=== PATIENT | female | born 1965 | race Caucasian/White ===

== ENCOUNTER → 2016-06-20 | Outpatient (CLI) | payer BC ==
[~2016-06-20] MED LIST: ALPR-411 PO; BUTA1CAP17 PO; CMD5 PO; CYCL10TA6 PO; DOCU-94 PO; ENOX100I SQ; FLV1 PO; LIOT5TAB PO; LORA-741 PO; METH10TA PO; METH1INJ89 INJ; MOME0.1C33 TOP; OMEP40CA PO; ONDA8TAB12 PO; PROM25TA PO; RTL20 PO; SIMV40TA2 PO; WARF-246 PO; [UNRECOGNIZED DRUG - CODE] PO
--- NOTE | 2016-06-20 16:29 | MAMMOGRAPHY REPORT ---
BILATERAL DIGITAL SCREENING MAMMOGRAM TOMOSYNTHESIS WITH CAD: 06/20/2016 TECHNIQUE: Breast tomosynthesis in addition to standard 2D mammography was performed. Current study was also evaluated with a Computer Aided Detection (CAD) system. COMPARISON: Comparison is made to exams dated: 06/20/2015 mammogram, 06/22/2014 mammogram, 04/04/2013 m ammogram, 03/01/2012 mammogram, and 10/12/2014 mammogram - [facility]. BREAST COMPOSITION: The tissue of both breasts is heterogeneously dense, which may obscure small ma sses. FINDINGS: No suspicious masses, calcifications, or areas of architectural distortion are noted in e ither breast. There has been no significant interval change compared to prior exams. Two biopsy mar ker clips are again noted in the left upper outer quadrant. IMPRESSION: ACR BI-RADS CATEGORY 2: BENIGN There is no mammographic evidence of malignancy. A 1 year screening mammogram is recommended. The p atient will receive written notification of the results. Approximately 10% of breast cancers are not detected with mammography. A negative mammographic repor t should not delay biopsy if a clinically suggestive mass is present. Marilia Joseph M.D. ah/:06/20/2016 13:48:12 Assembler Type Bar And Segment: Christen HERZOG([place]ma)(M), [facility] letter sent: Normal 1/2 BI-RADS Code: ACR BI-RADS Category 2: Benign
== END | disposition home or self-care (01) ==
LOC: C.MAMM 10:31
DX: Z12.31 Encounter for screening mammogram for malignant neoplasm of breast (principal)

== ENCOUNTER → 2016-09-02 | Outpatient (CLI) | payer BC | END | disposition home or self-care (01) | LOC: C.LABSPEC 11:25 | DX: R30.0 Dysuria (principal) ==

== ENCOUNTER → 2016-09-24 | Outpatient (CLI) | payer BC ==
[2016-09-24 14:47] LABS: HEMATOCRIT 44.3 % (37-47); MEAN CELL VOLUME 87.7 fL (80-100); MEAN CORPUSCULAR HEMOGLOBIN 30.3 pg (25-34); MEAN CORPUSCULAR HGB CONC 34.5 g/dl (32-36); RED BLOOD COUNT 5.05 M/uL (4.2-5.4); WHITE BLOOD COUNT 8.03 K/uL (4.8-10.8)
[2016-09-24 15:07] LABS: BLOOD UREA NITROGEN 11 mg/dl (7-18); BUN/CREATININE RATIO 17.7 (10-20); CALCIUM 9.1 mg/dl (8.5-10.1); CARBON DIOXIDE 30 mmol/L (21-32); CHLORIDE 106 mmol/L (98-107); CREATININE 0.62 mg/dl (0.60-1.20); GLUCOSE 89 mg/dl (70-99); MEAN PLATELET VOLUME 12.7 fL (7.4-10.4); PLATELET COUNT 120 K/uL (130-400); POTASSIUM 3.9 mmol/L (3.5-5.1); SODIUM 140 mmol/L (136-145)
[2016-09-24 15:08] LABS: BASO % 0.2 %; BASO ABS # 0.02 K/uL (0-0.2); COMPLETE YES; EOS % 1.1 %; IG% 0.1 %; LYMPH % 17.3 %; LYMPH ABS # 1.39 K/uL (1.2-3.4); MONO % 6.4 %; NEUT % 74.9 %; PLT ESTIMATE DECREASED
[2016-09-24 15:10] LABS: ALKALINE PHOSPHATASE 128 U/L (45-117); ALT/SGPT 29 U/L (12-78); AST/SGOT 24 U/L (15-37)
== END | disposition home or self-care (01) ==
LOC: C.LAB 13:14
DX: R19.7 Diarrhea, unspecified (principal); R50.9 Fever, unspecified

== ENCOUNTER → 2017-11-06 | Outpatient (CLI) | payer OTHER ==
[2017-11-06 13:25] LABS: BASO % 1.1 %; BASO ABS # 0.08 K/uL (0-0.2); EOS % 4.3 %; EOS ABS # 0.32 K/uL (0-0.5); HEMATOCRIT 42.7 % (37-47); HEMOGLOBIN 14.1 g/dL (12.0-16.0); IG# 0.01 K/uL (0.00-0.02); LYMPH % 20.9 %; LYMPH ABS # 1.57 K/uL (1.2-3.4); MEAN CORPUSCULAR HEMOGLOBIN 28.7 pg (25-34); MONO % 6.1 %; MONO ABS # 0.46 K/uL (0.11-0.59); NEUT % 67.5 %; NEUT ABS # 5.08 K/uL (1.4-6.5); PLATELET COUNT 150 K/uL (130-400); RED CELL DISTRIBUTION WIDTH CV 14.1 % (11.5-14.5); RED CELL DISTRIBUTION WIDTH SD 44.2 fL (36.4-46.3); WHITE BLOOD COUNT 7.52 K/uL (4.8-10.8)
[2017-11-06 13:49] LABS: CREATININE 0.61 mg/dl (0.60-1.20)
== END | disposition home or self-care (01) ==
LOC: C.LABBC 11:30
PROVIDERS: ATTEND Internal Medicine
DX: Z79.899 Other long term (current) drug therapy (principal); M05.79 Rheumatoid arthritis with rheumatoid factor of multiple sites without organ or systems involvement

== ENCOUNTER → 2017-11-11 | Outpatient (CLI) | payer OTHER ==
[2017-11-11 17:28] LABS: ALBUMIN 3.5 gm/dl (3.4-5.0); TOTAL PROTEIN 7.4 gm/dl (6.4-8.2)
== END | disposition home or self-care (01) ==
LOC: C.LABBC 13:18
PROVIDERS: ATTEND Internal Medicine
DX: M05.79 Rheumatoid arthritis with rheumatoid factor of multiple sites without organ or systems involvement (principal); Z79.899 Other long term (current) drug therapy

== ENCOUNTER 2020-02-04 12:07 | Inpatient (IN) ==
[2020-02-04] MEDS ORDERED: VANCOMYCIN HCL 1,250 MG in SODIUM CHLORIDE 0.9% 500 ML IV ONE (12:37)
[2020-02-04] MEDS ORDERED: VANCOMYCIN CONSULT ACTIVE PRN ×2 (12:37→18:14)
[2020-02-04 12:59] LABS: Hematocrit (blood only) 30.3 % (37-47); Hemoglobin 10.1 g/dL (12.0-16.0); Mean Corpuscular Hemoglobin 28.2 pg (25-34); Mean Corpuscular Hgb Conc 33.3 g/dL (32-36); Mean Corpuscular Volume 84.6 fL (80-100); RDW Coefficient of Variation 12.5 % (11.5-14.5); Red Blood Count 3.58 M/uL (4.2-5.4)
[2020-02-04 13:06] LABS: Eosinophils # (auto) 0.11 K/uL (0-0.5); Eosinophils % (auto) 2.6 %; Lymphocytes # (auto) 0.51 K/uL (1.2-3.4); Lymphocytes % (auto) 12.1 %; Monocytes # (auto) 0.01 K/uL (0.11-0.59); Monocytes % (auto) 0.2 %; Neutrophils # (auto) 3.57 K/uL (1.4-6.5); Neutrophils % (auto) 85.1 %; Platelet Count 80 K/uL (130-400)
[2020-02-04 13:09] LABS: INR 1.6 (0.9-1.1); Partial Thromboplastin Ratio 1.1; Partial Thromboplastin Time 31.9 Seconds (21.0-31.0); Prothrombin Time 16.5 Seconds (9.0-12.0)
[2020-02-04 13:19] LABS: Albumin Level 2.8 gm/dl (3.4-5.0); BUN Creatinine Ratio 27.9 (10-20); Calcium 8.4 mg/dl (8.5-10.1); Creatinine Clr Calc Pharmacy 114.4 ml/min; Est GFR (African American) 124.7; Est GFR (Non-African American) 107.6; Magnesium 1.8 mg/dl (1.8-2.4); Potassium 3.8 mmol/L (3.5-5.1)
[2020-02-04 13:21] LABS: Albumin Globulin Ratio 0.8 (0.9-2); Bilirubin,Total 1.1 mg/dl (0.2-1); Globulin 3.7 gm/dl (2.5-4.0); Total Protein 6.5 gm/dl (6.4-8.2)
--- NOTE | 2020-02-04 13:29 | XRay Report ---
XR chest 1V portable CLINICAL HISTORY: SEPSIS COMPARISON STUDY: 01/19/2020 FINDINGS: The cardiac and mediastinal contours remain stable. There is a right-sided A-Port catheter. There is no acute parenchymal consolidation. There is no failure. There are no pleural effusions. Th ere is a stable 4 cm pleural-based mass within the left upper lung zone laterally.[ IMPRESSION: 1. Stable 4 cm mass within the left upper lung zone laterally 2. No evidence of acute parenchymal consolidation ACT 112: Negative or not required by law. Electronically signed by: Toribio Mercado M.D. 02/04/2020 1:28 PM
[2020-02-04 13:35] LABS: Appearance Urine Clear (Clear); Bacteria Urine Automated Negative (Negative); Bilirubin Urine Negative (Negative); Blood Urine Trace (Negative); Color Urine Dark Yellow; Glucose Urine UA Negative (Negative); Ketones Urine Negative (Negative); Leukocyte Esterase Urine Trace (Negative); Nitrite Urine Negative (Negative); Protein Urine Negative (Negative); RBC Urine Automated 0-4 /hpf (0-4); Urobilinogen Urine Negative (Negative); pH Urine 5.5 (4.5-7.5)
--- NOTE | 2020-02-04 13:38 | Emergency Department Note ---
History of Present Illness General Chief complaint: Fever Stated complaint: FEVER Time Seen by Provider: 02/04/20 12:19 History of Present Illness Provider complaint: Fever Onset (ago): hour(s) 8 Associated symptoms: + fever/chills and + rash; no confusion, no chest pain, no cough, no headaches, no nausea/vomiting, no seizure and no shortness of breath 54-year-old female on chemotherapy with Dr. Martinez for metastatic breast cancer presents emergency department for fever. Patient states for last chemotherapy was done on . Patient states she started having a fever at 4 AM today. T-max 101.7. Took Tylenol at 9:57 AM today. Patient recently had a port placed in her right chest. She also reports redness and rash over her left chest that is tender to touch. She reports no discharge. No loss of taste or smell. No nausea vomiting diarrhea dysuria hematuria or cough. Patient is on Coumadin. Last INR 1.9. Patient states she contacted her oncologist Dr. Martinez who told her to come to the emergency department to see if she had cellulitis. Home Medications Home Medications Medication Instructions Recorded Confirmed Type risojtklzp-wbaizhbywpfpf-wxhhsidu 1 cap PO Q4H PRN 01/13/20 02/04/20 History 50 mg-300 mg-40 mg capsule cyclobenzaprine 10 mg tablet 10 mg PO TID PRN 01/13/20 02/04/20 History diclofenac sodium 1 % topical gel 2 g TOPICAL QID PRN 01/13/20 02/04/20 History liothyronine 5 mcg tablet 10 mcg PO QAM tab 01/13/20 02/04/20 History methadone 10 mg tablet 10 mg PO BID tab 01/13/20 02/04/20 History methylphenidate HCl 10 mg tablet 20 mg PO QAM tab 01/13/20 02/04/20 History ondansetron HCl 8 mg tablet 8 mg PO Q8H PRN 01/13/20 02/04/20 History oxycodone-acetaminophen 5 mg-325 1 tab PO Q4H PRN 01/13/20 02/04/20 History mg tablet simvastatin 40 mg tablet 40 mg PO QPM 01/13/20 02/04/20 History warfarin 5 mg tablet 5 mg PO DAILY tab 01/13/20 02/04/20 History zolpidem 12.5 mg tablet,extended 12.5 mg PO DAILY PRN tab 01/13/20 02/04/20 History release,multiphase alprazolam 0.5 mg PO Q6H PRN 02/04/20 02/04/20 History anastrozole 1 mg PO DAILY 02/04/20 02/04/20 History dexamethasone 20 mg PO UD 02/04/20 02/04/20 History Allergies Allergy/AdvReac Type Severity Reaction Status Date / Time adhesive Allergy Unknown Rash Verified 02/04/20 12:35 povidone Allergy Unknown Blisters Verified 02/04/20 12:35 acetaminophen [From Lortab] Allergy Unknown Verified 02/04/20 12:35 hydrocodone [From Lortab] Allergy Unknown Verified 02/04/20 12:35 iodine Allergy Blisters Verified 02/04/20 12:35 methocarbamol [From Robaxin] Allergy Unknown Verified 02/04/20 12:35 povidone-iodine Allergy Blisters Verified 02/04/20 12:35 [From Betadine] propoxyphene [From Darvon] Allergy Unknown Verified 02/04/20 12:35 soap [From Betadine] Allergy Blisters Verified 02/04/20 12:35 codeine AdvReac Intermediate Severe Verified 02/04/20 12:35 headache, nausea Past Med/Surg History Medical History (Updated 02/04/20 @ 15:36 by Murray Timmons) Antiphospholipid antibody syndrome Factor V Leiden Fibromyalgia History of blood clots hx of small vessel eye blood clots per remote [facility] records, hx antiphospholipid antibody syndrome/lupus anticoagulant/factor V- on coumadin History of Chiari malformation s/p surgery/repair (2014), no acute findings on 01/13/20 brain MRI History of HPV infection Hyperlipidemia Hypothyroidism IBD (inflammatory bowel disease) Jaw pain, non-TMJ Lupus anticoagulant syndrome Lymphedema Metastatic breast cancer recent diagnosis; mets to lungs, lymph nodes Migraines Rheumatoid arthritis Surgical History CSF leak post craniotomy; surgically repaired 2014 History of breast biopsy History of cholecystectomy History of colonoscopy History of craniotomy suboccipital craniectomy, C1 laminectomy, and duraplasty to treat a type 1 Chiari malformation 2015 [place] History of D&C x2 History of excision of mass vulvar History of hysterectomy History of lumpectomy x 6 History of surgery on arm Left Brachial 1993 History of tooth extraction PONV (postoperative nausea and vomiting) Slow to wake up after anesthesia Surgical history of tubal ligation Family History Mother Breast cancer Grandmother Heart disease Breast cancer Other No family history of adverse response to anesthesia Social History Smoking Status: Never smoker packs per day: 1; Years Smoked: 35; Second Hand Exposure: Yes (as a child); Hx Alcohol Use: No Hx Substance Use: No Preferred Language: Belarusian Communication Ability: Effective School Coordinator Required: No Beliefs That Will Affect Care: Temple Temple Beliefs: Shinto marital status: Current Living Situation: Spouse current occupation: Homemaker Feels Safe at Home: Yes Assistive Devices: Glasses Review of Systems A total of 10 systems reviewed and were otherwise negative Physical Exam Vital Signs Vital Signs - 24 hr 02/04/20 12:10 02/04/20 12:52 02/04/20 13:03 Temperature 37.4 C Temperature Source Oral Pulse Rate 113 H 102 H Pulse Rate from SpO2 Sensor 101 H Pulse Rhythm Regular Pulse Strength Normal Respiratory Rate 18 16 Respiratory Effort / Characteristics Non-Labored Blood Pressure 104/65 92/66 L Blood Pressure Mean 78 75 Blood Pressure Position Sitting Pulse Oximetry 97 98 Oxygen Delivery Method Sepsis Recent Fever Within 48 Hours Yes Sepsis New/Unexplained Change in Mental Status No Sepsis Action Taken by Nursing No Action Required 02/04/20 13:13 02/04/20 13:30 02/04/20 14:00 Temperature Temperature Source Pulse Rate 104 H 106 H Pulse Rate from SpO2 Sensor 102 H 106 H Pulse Rhythm Pulse Strength Respiratory Rate 19 24 Respiratory Effort / Characteristics Blood Pressure 111/68 111/67 Blood Pressure Mean 80 78 Blood Pressure Position Pulse Oximetry 97 98 99 Oxygen Delivery Method Room Air Sepsis Recent Fever Within 48 Hours Sepsis New/Unexplained Change in Mental Status Sepsis Action Taken by Nursing Physical Exam GENERAL: She is oriented to person, place, and time. She appears well-developed and well-nourished. She does not appear distressed. HENT: Exam performed. -Head: Normocephalic and atraumatic. -Right Ear: External ear normal. No mastoid tenderness. -Left Ear: External ear normal. No mastoid tenderness. -Mouth/Throat: The oropharynx is clear and moist. No trismus in the jaw. No dental abscesses or uvula swelling. No oropharyngeal exudate or tonsillar abscesses. EYES: Conjunctivae and EOM are normal. Pupils are equal, round, and reactive to light. Right eye exhibits no discharge. Left eye exhibits no discharge. No scleral icterus. NECK: Normal range of motion. Neck supple. No JVD present. No spinous process tenderness present. No carotid bruit present. No rigidity. No tracheal deviation and normal range of motion present. No Brudzinski's sign and no Kernig's sign noted. CV: Tachycardic rate, regular rhythm, normal heart sounds and intact distal pulses. There is no peripheral edema. Palpable radial pulses bue. PULM/CHEST: Effort normal and breath sounds normal. No respiratory distress. No stridor. She has no wheezes. She has no rales. -Chest Wall: Port in place ABD: The abdomen is soft. Bowel sounds are normal. She has no distension. No mass is present. There is no tenderness. There is no rebound, no guarding, no Adam's sign and no tenderness at McBurney's point. Rovsig negative MUSC/SKEL: Normal range of motion. There is no peripheral edema, tenderness or deformity. LYMPH: No cervical adenopathy. NEURO: She is alert and oriented to person, place, and time. She has normal strength. No cranial nerve deficit or sensory deficit. Coordination and gait normal. GCS eye subscore is 4. GCS verbal subscore is 5. GCS motor subscore is 6. Cerebellar tests wnl. Breast: Breast exam conducted with nursing marble setter helper Rochelle at bedside. Left breast is erythematous and tender in the inferior aspect of the breast from approximately 4-8 o'clock. There is some mild tenderness. No nipple discharge. Right breast no erythema or tenderness. No nipple discharge. PSYCH: She has a normal mood and affect. Behavior is normal. Judgment and thought content normal. Course Course 1219: The patient was evaluated in room B2. A complete history and physical exam was performed. Patient was seen in full airborne precautions given her being immunocompromised in the current COVID-19 pandemic. Patient was seen by myself and staff in full airborne precautions including N95's, face shield, gown, and gloves. Cardiac monitoring: An order was placed for continuous cardiac monitoring. The monitor shows a rate of 100 with sinus rhythm 1500: Vital signs stable. Labs within normal limits. Ultrasound does not show any abscess. Patient does appear to have cellulitis. Patient was treated with vancomycin. Discussed with the patient's oncologist Dr. Martinez who also recommended cefepime and to meet the patient to the medicine unit. Discussed with Dr. Juan who agreed to evaluate the patient. Administered Medications Discontinued Medications Vancomycin HCl 1,250 mg/ (Sodium Chloride) 525 mls @ 200 mls/hr IV NOW ONE Stop: 02/04/20 15:14 Last Admin: 02/04/20 13:04 Dose: 200 mls/hr Documented by: [id number] Sodium Chloride (Nss 1000ml) 1,000 mls @ 999 mls/hr IV .Q1H1M ONE Stop: 02/04/20 14:48 Last Infusion: 02/04/20 15:14 Dose: 0 mls/hr Documented by: [id number] Admin: 02/04/20 14:02 Dose: 999 mls/hr Documented by: [id number] Medical Decision Making Laboratory Data Result diagrams: 02/04/20 12:45 02/04/20 12:45 Lab Results 02/04/20 02/04/20 02/04/20 Range/Units 12:45 12:45 12:45 WBC 4.20 L (4.8-10.8) K/uL RBC 3.58 L (4.2-5.4) M/uL Hgb 10.1 L (12.0-16.0) g/dL Hct 30.3 L (37-47) % MCV 84.6 (80-100) fL MCH 28.2 (25-34) pg MCHC 33.3 (32-36) g/dL RDW Std Deviation 39.0 (36.4-46.3) fL RDW Coeff of Millie 12.5 (11.5-14.5) % Plt Count 80 L (130-400) K/uL MPV 11.0 H (7.4-10.4) fL Immature Gran % (Auto) 0.0 % Neut % (Auto) 85.1 % Lymph % (Auto) 12.1 % Lake % (Auto) 0.2 % Eos % (Auto) 2.6 % Baso % (Auto) 0.0 % Neut # (Auto) 3.57 (1.4-6.5) K/uL Lymph # (Auto) 0.51 L (1.2-3.4) K/uL Lake # (Auto) 0.01 L (0.11-0.59) K/uL Eos # (Auto) 0.11 (0-0.5) K/uL Baso # (Auto) 0.00 (0-0.2) K/uL Immature Gran # (Auto) 0.00 (0.00-0.02) K/uL PT 16.5 H (9.0-12.0) Seconds INR 1.6 H (0.9-1.1) APTT 31.9 H (21.0-31.0) Seconds PTT Ratio 1.1 Sodium 137 (136-145) mmol/L Potassium 3.8 (3.5-5.1) mmol/L Chloride 104 (98-107) mmol/L Carbon Dioxide 28 (21-32) mmol/L Anion Gap 5.0 (3-11) BUN 15 (7-18) mg/dl Creatinine 0.52 L (0.6-1.2) mg/dl Est Cr Clr Drug Dosing 114.4 ml/min Est GFR ( Amer) 124.7 Est GFR (Non-Af Amer) 107.6 BUN/Creatinine Ratio 27.9 H (10-20) Glucose 97 (70-99) mg/dl Lactate (0.4-2.0) mmol/L Calcium 8.4 L (8.5-10.1) mg/dl Magnesium 1.8 (1.8-2.4) mg/dl Total Bilirubin 1.1 H (0.2-1) mg/dl AST 42 H (15-37) U/L ALT 71 (12-78) U/L Alkaline Phosphatase 103 (45-117) U/L Total Protein 6.5 (6.4-8.2) gm/dl Albumin 2.8 L (3.4-5.0) gm/dl Globulin 3.7 (2.5-4.0) gm/dl Albumin/Globulin Ratio 0.8 L (0.9-2) Urine Color Urine Appearance (Clear) Urine pH (4.5-7.5) Ur Specific [place] (1.000-1.030) Urine Protein (Negative) Urine Glucose (UA) (Negative) Urine Ketones (Negative) Urine Blood (Negative) Urine Nitrite (Negative) Urine Bilirubin (Negative) Urine Urobilinogen (Negative) Ur Leukocyte Esterase (Negative) Urine WBC (Auto) (0-5) /hpf Urine RBC (Auto) (0-4) /hpf U Hyaline Cast (Auto) (0-5) /lpf U Epithel Cells (Auto) (0-5) /lpf Urine Bacteria (Auto) (Negative) COVID-19 Eval Order COVID-19 PCR (Negative) 02/04/20 02/04/20 02/04/20 Range/Units 12:45 12:45 12:45 WBC (4.8-10.8) K/uL RBC (4.2-5.4) M/uL Hgb (12.0-16.0) g/dL Hct (37-47) % MCV (80-100) fL MCH (25-34) pg MCHC (32-36) g/dL RDW Std Deviation (36.4-46.3) fL RDW Coeff of Millie (11.5-14.5) % Plt Count (130-400) K/uL MPV (7.4-10.4) fL Immature Gran % (Auto) % Neut % (Auto) % Lymph % (Auto) % Lake % (Auto) % Eos % (Auto) % Baso % (Auto) % Neut # (Auto) (1.4-6.5) K/uL Lymph # (Auto) (1.2-3.4) K/uL Lake # (Auto) (0.11-0.59) K/uL Eos # (Auto) (0-0.5) K/uL Baso # (Auto) (0-0.2) K/uL Immature Gran # (Auto) (0.00-0.02) K/uL PT (9.0-12.0) Seconds INR (0.9-1.1) APTT (21.0-31.0) Seconds PTT Ratio Sodium (136-145) mmol/L Potassium (3.5-5.1) mmol/L Chloride (98-107) mmol/L Carbon Dioxide (21-32) mmol/L Anion Gap (3-11) BUN (7-18) mg/dl Creatinine (0.6-1.2) mg/dl Est Cr Clr Drug Dosing ml/min Est GFR ( Amer) Est GFR (Non-Af Amer) BUN/Creatinine Ratio (10-20) Glucose (70-99) mg/dl Lactate 0.7 (0.4-2.0) mmol/L Calcium (8.5-10.1) mg/dl Magnesium (1.8-2.4) mg/dl Total Bilirubin (0.2-1) mg/dl AST (15-37) U/L ALT (12-78) U/L Alkaline Phosphatase (45-117) U/L Total Protein (6.4-8.2) gm/dl Albumin (3.4-5.0) gm/dl Globulin (2.5-4.0) gm/dl Albumin/Globulin Ratio (0.9-2) Urine Color Urine Appearance (Clear) Urine pH (4.5-7.5) Ur Specific [place] (1.000-1.030) Urine Protein (Negative) Urine Glucose (UA) (Negative) Urine Ketones (Negative) Urine Blood (Negative) Urine Nitrite (Negative) Urine Bilirubin (Negative) Urine Urobilinogen (Negative) Ur Leukocyte Esterase (Negative) Urine WBC (Auto) (0-5) /hpf Urine RBC (Auto) (0-4) /hpf U Hyaline Cast (Auto) (0-5) /lpf U Epithel Cells (Auto) (0-5) /lpf Urine Bacteria (Auto) (Negative) COVID-19 Eval Order Covid19 Done at [facility] COVID-19 PCR NEGATIVE (Negative) 02/04/20 Range/Units 13:10 WBC (4.8-10.8) K/uL RBC (4.2-5.4) M/uL Hgb (12.0-16.0) g/dL Hct (37-47) % MCV (80-100) fL MCH (25-34) pg MCHC (32-36) g/dL RDW Std Deviation (36.4-46.3) fL RDW Coeff of Millie (11.5-14.5) % Plt Count (130-400) K/uL MPV (7.4-10.4) fL Immature Gran % (Auto) % Neut % (Auto) % Lymph % (Auto) % Lake % (Auto) % Eos % (Auto) % Baso % (Auto) % Neut # (Auto) (1.4-6.5) K/uL Lymph # (Auto) (1.2-3.4) K/uL Lake # (Auto) (0.11-0.59) K/uL Eos # (Auto) (0-0.5) K/uL Baso # (Auto) (0-0.2) K/uL Immature Gran # (Auto) (0.00-0.02) K/uL PT (9.0-12.0) Seconds INR (0.9-1.1) APTT (21.0-31.0) Seconds PTT Ratio Sodium (136-145) mmol/L Potassium (3.5-5.1) mmol/L Chloride (98-107) mmol/L Carbon Dioxide (21-32) mmol/L Anion Gap (3-11) BUN (7-18) mg/dl Creatinine (0.6-1.2) mg/dl Est Cr Clr Drug Dosing ml/min Est GFR ( Amer) Est GFR (Non-Af Amer) BUN/Creatinine Ratio (10-20) Glucose (70-99) mg/dl Lactate (0.4-2.0) mmol/L Calcium (8.5-10.1) mg/dl Magnesium (1.8-2.4) mg/dl Total Bilirubin (0.2-1) mg/dl AST (15-37) U/L ALT (12-78) U/L Alkaline Phosphatase (45-117) U/L Total Protein (6.4-8.2) gm/dl Albumin (3.4-5.0) gm/dl Globulin (2.5-4.0) gm/dl Albumin/Globulin Ratio (0.9-2) Urine Color Dark Yellow Urine Appearance Clear (Clear) Urine pH 5.5 (4.5-7.5) Ur Specific [place] 1.020 (1.000-1.030) Urine Protein Negative (Negative) Urine Glucose (UA) Negative (Negative) Urine Ketones Negative (Negative) Urine Blood Trace H (Negative) Urine Nitrite Negative (Negative) Urine Bilirubin Negative (Negative) Urine Urobilinogen Negative (Negative) Ur Leukocyte Esterase Trace H (Negative) Urine WBC (Auto) 1-5 (0-5) /hpf Urine RBC (Auto) 0-4 (0-4) /hpf U Hyaline Cast (Auto) 1-5 (0-5) /lpf U Epithel Cells (Auto) 10-20 H (0-5) /lpf Urine Bacteria (Auto) Negative (Negative) COVID-19 Eval Order COVID-19 PCR (Negative) Imaging Data Radiologist's Impression: US breast LT limited CLINICAL HISTORY: Left breast redness and dimpling. History of inflammatory breast carcinoma. Evaluate for abscess. COMPARISON STUDY: MRI dated 01/10/2020 FINDINGS: Ultrasonographic evaluation the left breast reveals no fluid collections suspicious for abscess. IMPRESSION: No abscess identified. ACT 112: Negative or not required by law. Electronically signed by: Toribio Mercado M.D. 02/04/2020 2:47 PM Dictated: 02/04/20 1445 Transcribed: 02/04/201444 XR chest 1V portable CLINICAL HISTORY: SEPSIS COMPARISON STUDY: 01/19/2020 FINDINGS: The cardiac and mediastinal contours remain stable. There is a right- sided A-Port catheter. There is no acute parenchymal consolidation. There is no failure. There are no pleural effusions. There is a stable 4 cm pleural-based mass within the left upper lung zone laterally.[ IMPRESSION: 1. Stable 4 cm mass within the left upper lung zone laterally 2. No evidence of acute parenchymal consolidation ACT 112: Negative or not required by law. Electronically signed by: Toribio Mercado M.D. 02/04/2020 1:28 PM Dictated: 02/04/20 1326 Transcribed: 02/04/20 1326 ECG Data Indication: + other (Sepsis) Rate (beats per minute): 102 Rhythm: + sinus tachycardia ECG Intervals/blocks: + Normal QRS, + Normal DC and + Normal QT-c ECG ST segments: + Normal ST segments MDM Narrative 1219: The patient was evaluated in room B2. A complete history and physical exam was performed. Patient was seen in full airborne precautions given her being immunocompromised in the current COVID-19 pandemic. Patient was seen by myself and staff in full airborne precautions including N95's, face shield, gown, and gloves. Cardiac monitoring: An order was placed for continuous cardiac monitoring. The monitor shows a rate of 100 with sinus rhythm 1500: Vital signs stable. Labs within normal limits. Ultrasound does not show any abscess. Patient does appear to have cellulitis. Patient was treated with vancomycin. Discussed with the patient's oncologist Dr. aMrtinez who also recommended cefepime and to meet the patient to the medicine unit. Discussed with Dr. Juan who agreed to evaluate the patient. Impression & Plan Cellulitis, Metastatic breast cancer Discharge Plan Visit Data Chief Complaint: Fever Stated Complaint: FEVER ED Provider: Murray Timmons Discharge Problem: Cellulitis, Metastatic breast cancer Patient Disposition: Being Evaluated by Hospitalist Forms Stand Alone Forms: [facility] Prescriptions Prescriptions: No Action cyclobenzaprine 10 mg tablet 10 mg PO TID PRN (Reason: Muscle Spasm) RF: 0 [id number]-nxjkgtgeebzld-vqsi [Fioricet] 50-300-40 mg capsule 1 cap PO Q4H PRN (Reason: Migraine Headache) RF: 0 liothyronine [Cytomel] 5 mcg tablet 10 mcg PO QAM RF: 0 simvastatin [Zocor] 40 mg tablet 40 mg PO QPM RF: 0 oxycodone-acetaminophen [Percocet] 5-325 mg tablet 1 tab PO Q4H PRN (Reason: Pain) RF: 0 methadone [Dolophine] 10 mg tablet 10 mg PO BID RF: 0 zolpidem [Ambien CR] 12.5 mg tablet,ext release multiphase 12.5 mg PO DAILY PRN (Reason: insomnia ) RF: 0 warfarin 5 mg tablet 5 mg PO DAILY RF: 0 ondansetron HCl 8 mg tablet 8 mg PO Q8H PRN (Reason: Nausea And Vomiting) RF: 0 methylphenidate HCl [Ritalin] 10 mg tablet 20 mg PO QAM RF: 0 diclofenac sodium 1 % gel 2 g topical QID PRN (Reason: Pain) RF: 0 anastrozole 1 mg tablet 1 mg PO DAILY RF: 0 alprazolam 0.5 mg tablet 0.5 mg PO Q6H PRN (Reason: Anxiety) RF: 0 dexamethasone 4 mg tablet 20 mg PO UD RF: 0 Referrals Referrals: Akbar Francisco Jr, DO [Primary Care Provider] - Discharge Problem: Cellulitis Qualifiers: Site of cellulitis: trunk Site of cellulitis of trunk: chest wall Qualified Code(s): L03.313 - Cellulitis of chest wall
[2020-02-04] MEDS ORDERED: SODIUM CHLORIDE 0.9% 1000ML 1,000 ML IV ONE (13:48)
--- NOTE | 2020-02-04 14:49 | Ultrasound Report ---
US breast LT limited CLINICAL HISTORY: Left breast redness and dimpling. History of inflammatory breast carcinoma. Evaluat e for abscess. COMPARISON STUDY: MRI dated 01/10/2020 FINDINGS: Ultrasonographic evaluation the left breast reveals no fluid collections suspicious for abs cess. IMPRESSION: No abscess identified. ACT 112: Negative or not required by law. Electronically signed by: Toribio Mercado M.D. 02/04/2020 2:47 PM
[2020-02-04] MEDS ORDERED: CEFEPIME 2,000 MG/20 ML VIAL IV STA (14:57)
--- NOTE | 2020-02-04 15:40 | History & Physical Report ---
Date of Service February 04, 2020 Assessment & Plan (1) Cellulitis: Admit to medical surgical unit Non purulent cellulitis qSOFA negative will add on ESR and CRP to assist with tailoring ABX and calculate LRINEC score Vancomycin and Clindamycin for now Blood cultures pending (one set from peripheral, one set from medi-port) already done trend erythema, skin marked and outlined in the EMD - Also considering a chemotherapy reaction as she presented with 3 discrete patches of erythema rather than one confluent area. But patient and understand and are in agreement with treating for infection first, then consider chemo reaction. (2) Triple negative malignant neoplasm of breast: Ordinally diagnosed in November 2019. Current therapy as above (Taxol and Gemcitabine) first cycle day 10 on admit day. Current therapy per HPI Hematology consult placed Chemotherapy and management per Hematology/Oncology Supportive therapy for nausea and pain given (3) Metastatic breast cancer: see above (4) Factor V deficiency: - Continue with Coumadin 5mg daily, therapeutic INR 1.6 for upper extremity VTE following lymph node biposy. (5) Fibromyalgia: Continue home pain regimine with Methadone and OXY. Add in adjuvant therapy as needed. Tylenol PRN pain and fever as well. (6) Chronic pain disorder: as above (7) Rheumatoid arthritis: Biologics stopped prior ther induction of chemotherapy. Continue sup portive care as above. (8) Hyperlipemia: Simvastatin 40 mg qhs. Continue therapy. (9) Hypothyroidism: No acute needs, continue therapy. Admission and Anticipated Discharge Date Anticipated date of discharge: 02/07/20 History of Present Illness Primary Care Provider: Akbar Francisco Jr, DO 54 YOF recently diagnosed with metastatic triple negative breast cancer ([facility]) in November. Patient has since undergone lymph node biopsy on 01/02/2020, and placement of RSCL medi-port on 01/19/2020. Patient is currently undergoing chemotherapy with taxol and gemcitabine (currently on day 10) last treatment was on 02/02/20. Patient noticed rash on breast within past 48 hours. The rash started at mammory fold and spread to her underarm. Since coming to the emergency room, the erythema has spread down to left flank and down left lateral hip. The erythema has a break at her panty line. There is no drainage, there is no nidus of entry noted. Patient denies any scratches or other injuries at site or at breast. The site is associated with warmth, fevers, nausea and no vomiting. Patient has take tylenol at home for fever with minimal relief. Of note patient has been having fevers and body-aches/bone pain since starting her chemotherapy on 01/27/2020. Allergies Allergy/AdvReac Type Severity Reaction Status Date / Time adhesive Allergy Unknown Rash Verified 02/04/20 12:35 povidone Allergy Unknown Blisters Verified 02/04/20 12:35 acetaminophen [From Lortab] Allergy Unknown Verified 02/04/20 12:35 hydrocodone [From Lortab] Allergy Unknown Verified 02/04/20 12:35 iodine Allergy Blisters Verified 02/04/20 12:35 methocarbamol [From Robaxin] Allergy Unknown Verified 02/04/20 12:35 povidone-iodine Allergy Blisters Verified 02/04/20 12:35 [From Betadine] propoxyphene [From Darvon] Allergy Unknown Verified 02/04/20 12:35 soap [From Betadine] Allergy Blisters Verified 02/04/20 12:35 codeine AdvReac Intermediate Severe Verified 02/04/20 12:35 headache, nausea Home Medications Home Medications Medication Instructions Recorded Confirmed Type womdcdxegb-[id number]-ukkzoxny 1 cap PO Q4H PRN 01/13/20 02/04/20 History 50 mg-300 mg-40 mg capsule cyclobenzaprine 10 mg tablet 10 mg PO TID PRN 01/13/20 02/04/20 History diclofenac sodium 1 % topical gel 2 g TOPICAL QID PRN 01/13/20 02/04/20 History liothyronine 5 mcg tablet 10 mcg PO QAM tab 01/13/20 02/04/20 History methadone 10 mg tablet 10 mg PO BID tab 01/13/20 02/04/20 History methylphenidate HCl 10 mg tablet 20 mg PO QAM tab 01/13/20 02/04/20 History ondansetron HCl 8 mg tablet 8 mg PO Q8H PRN 01/13/20 02/04/20 History oxycodone-acetaminophen 5 mg-325 1 tab PO Q4H PRN 01/13/20 02/04/20 History mg tablet simvastatin 40 mg tablet 40 mg PO QPM 01/13/20 02/04/20 History warfarin 5 mg tablet 5 mg PO DAILY tab 01/13/20 02/04/20 History zolpidem 12.5 mg tablet,extended 12.5 mg PO DAILY PRN tab 01/13/20 02/04/20 History release,multiphase alprazolam 0.5 mg PO Q6H PRN 02/04/20 02/04/20 History anastrozole 1 mg PO DAILY 02/04/20 02/04/20 History dexamethasone 20 mg PO UD 02/04/20 02/04/20 History Past Med/Surg History Medical History (Updated 02/04/20 @ 15:36 by Murray Timmons) Antiphospholipid antibody syndrome Factor V Leiden Fibromyalgia History of blood clots hx of small vessel eye blood clots per remote [facility] records, hx antiphospholipid antibody syndrome/lupus anticoagulant/factor V- on coumadin History of Chiari malformation s/p surgery/repair (2014), no acute findings on 01/13/20 brain MRI History of HPV infection Hyperlipidemia Hypothyroidism IBD (inflammatory bowel disease) Jaw pain, non-TMJ Lupus anticoagulant syndrome Lymphedema Metastatic breast cancer recent diagnosis; mets to lungs, lymph nodes Migraines Rheumatoid arthritis Surgical History CSF leak post craniotomy; surgically repaired 2014 History of breast biopsy History of cholecystectomy History of colonoscopy History of craniotomy suboccipital craniectomy, C1 laminectomy, and duraplasty to treat a type 1 Chiari malformation 2014 [place] History of D&C x2 History of excision of mass vulvar History of hysterectomy History of lumpectomy x 6 History of surgery on arm Left Brachial 1992 History of tooth extraction PONV (postoperative nausea and vomiting) Slow to wake up after anesthesia Surgical history of tubal ligation Family History Mother Breast cancer Grandmother Heart disease Breast cancer Other No family history of adverse response to anesthesia Social History Smoking Status: Former smoker packs per day: 1; Years Smoked: 35; Second Hand Exposure: No; Do You Dip or Chew Tobacco: No; Tobacco Cessation Education Requested by Patient: No Hx Alcohol Use: No Hx Substance Use: No Preferred Language: Gabonese Communication Ability: Effective [employer] Instructor Required: No Beliefs That Will Affect Care: None marital status: Current Living Situation: Family current occupation: Homemaker Feels Safe at Home: Yes Assistive Devices: Glasses Review of Systems Review of Systems: Constitutional: +fever, sweats or chills Eyes: No diplopia, no worsening or blurred vision ENT: +taste abnormality, normal hearing, no trouble swallowing Respiratory: +orthopnea (secondary to pain) No cough, sputum, dyspnea at rest or on exertion Cardiovascular: No chest pain, tightness or palpitations Abdomen: +diarrhea, No pain, nausea, vomiting, or constipation Musculoskeletal: + chronic joint pain, No calf pain, swelling Neurologic: No weakness, numbness/tingling, or balance problems Psychiatric: No anxiety or depression Skin: + rash, no itch Physical Exam Physical Exam: General: awake, alert, no apparent distress Head: Normocephalic, atraumatic ENT: PERRL, EOMI, no pharyngeal exudate, mucous membranes moist Chest: Clear to auscultation, on room air, no adventitious breath sounds Cardiac: Regular rate and rhythm, no murmur, no JVD, normal peripheral pulses, good capillary refill Abdominal: NABS x 4 quadrants, soft, nondistended, nontender to palpation, no rebound or guarding Extremities: Normal inspection, no peripheral edema or erythema, calfs nontender to palpation Psych: Normal mood and affect Neuro: AAO x 3, strength intact bilaterally and rated 5/5, no motor deficits, speech is clear, no peripheral sensory deficits Skin: Erythema as per HPI, no drainage, no abscess. Mediport site intact with no erythema or drainage. QSOFA: 0 Results & Data Results & Data ([facility]) Vital Signs (Past 12 Hours) Vital Signs Temp Pulse Resp BP Pulse Ox 02/04/20 14:00 106 H 24 111/67 99 02/04/20 13:30 104 H 19 111/68 98 02/04/20 13:13 97 02/04/20 13:03 102 H 16 92/66 L 98 02/04/20 12:10 37.4 C 113 H 18 104/65 97 Diagnostic Findings US breast LT limited CLINICAL HISTORY: Left breast redness and dimpling. History of inflammatory breast carcinoma. Evaluate for abscess. COMPARISON STUDY: MRI dated 01/10/2020 FINDINGS: Ultrasonographic evaluation the left breast reveals no fluid collections suspicious for abscess. IMPRESSION: No abscess identified. XR chest 1V portable CLINICAL HISTORY: SEPSIS COMPARISON STUDY: 01/19/2020 FINDINGS: The cardiac and mediastinal contours remain stable. There is a right- sided A-Port catheter. There is no acute parenchymal consolidation. There is no failure. There are no pleural effusions. There is a stable 4 cm pleural-based mass within the left upper lung zone laterally. IMPRESSION: 1. Stable 4 cm mass within the left upper lung zone laterally 2. No evidence of acute parenchymal consolidation Code Status & VTE Plan Code Status Full CODE: Personally discussed with the patient at the bedside. VTE Prophylaxis Plan VTE Prophylaxis will be ordered: Yes Supervising Physician Co-Signing Physician Notes I supervised Blank Olvera PA-C on this patient's care. I examined the patient today independently of her. I discussed the plan of care with her with the plan being as written in her note except for any following changes/exceptions: None. 54yo F w/ hx of breast cancer getting treatment with Dr. Martinez. Presents with rapidly progressing erythematous areas on her left flank. First concern is certainly for cellulitis, though it is curious that the patches are 3 discrete patches rather than one confluent area. Could also be a chemotherapy reaction. Discussed this possibility with patient and , and that we need to treat for infection first as this can be devastating if left untreated for hours/days. They are in agreement. If cultures are negative and rash shows no improvement with abx, could consider reaction. PG Care Time/CCT Total # of Minutes Spent Total Time Spent with Patient: Total time spent is greater than 50% in coordination of care (as documented) at patient's floor/unit and/or counseling patient: Coding Level of Care Code 54772 Initial Inpt Care Lvl 3 Diagnoses Cellulitis L03.313 Site of cellulitis: trunk Site of cellulitis of trunk: chest wall Triple negative malignant neoplasm of breast C50.919 Metastatic breast cancer C50.919 Factor V deficiency D68.2 Fibromyalgia M79.7 Chronic pain disorder G89.4 Rheumatoid arthritis M06.9 Hyperlipemia E78.5 Hypothyroidism E03.9 (1) Cellulitis Site of cellulitis: trunk Site of cellulitis of trunk: chest wall Qualified Code(s): L03.313 - Cellulitis of chest wall
[2020-02-04] MEDS ORDERED: ACETAMINOPHEN 1000 MG/100 ML IV IV STA (16:20)
[2020-02-04] MEDS: CLINDAMYCIN 600 MG in DEXTROSE 5% 50 ML IV SCH (16:47)
[2020-02-04] MEDS ORDERED: PROCHLORPERAZINE 10 MG in SYRINGE 8 ML IV PRN (18:14)
[2020-02-04] MEDS ORDERED: DICLOFENAC SOD 1% GEL 100 GM TUBE EXT PRN (18:14)
[2020-02-04] MEDS ORDERED: VANCOMYCIN HCL 1,000 MG/270 ML BAG IV STA (18:14)
[2020-02-04] MEDS ORDERED: POLYETHYLENE (MIRALAX) 17 GM PACK PO PRN (18:14)
[2020-02-04] MEDS ORDERED: CYCLOBENZAPRINE HCL 10 MG TAB PO PRN (19:06)
[2020-02-04] MEDS ORDERED: ZOLPIDEM TARTRATE 10 MG TAB PO PRN (19:11)
--- NOTE | 2020-02-04 19:35 | Pharmacy Report ---
Pharmacy Abx Dose Short Note - Date of Service February 04, 2020 - Assessment & Plan Assessment 54 year old F ordered empiric vancomycin for cellulitis: * Recently diagnosed with metastatic triple negative breast cancer in November s/p lymph node biopsy on 01/02/2020 and placement of RSCL medi-port on 01/19/2020. * Patient is currently undergoing chemotherapy with taxol and gemcitabine * Also ordered clindamycin IV Plan Vancomycin * Loading dose: 1250 mg IV (20 mg/kg) * Maintenance dose: 1000 mg (16 mg/kg) IV q8h * Ordered EMPIRIC (automatic 48 hour stop) * Goal trough level: ~15 mcg/mL Pharmacy will continue to follow and will adjust dose/frequency as necessary. Thank you.
[2020-02-04] MEDS: WARFARIN SOD 5 MG TAB PO SCH (20:58)
[2020-02-04] MEDS: METHADONE HCL 10 MG TAB PO SCH (20:58)
[2020-02-04] MEDS: ALPRAZolam 0.5 MG TABLET PO PRN (20:58)
[2020-02-04] MEDS: ACETAMINOPHEN 500 MG TAB PO PRN (20:58)
[2020-02-04] MEDS: VANCOMYCIN HCL 1,000 MG in SODIUM CHLORIDE 0.9% 250 ML IV SCH (20:59)
[2020-02-04] MEDS: SIMVASTATIN 40 MG TAB PO SCH (20:59)
[2020-02-05] MEDS: CLINDAMYCIN 600 MG in DEXTROSE 5% 50 ML IV SCH ×3 (00:05→16:35)
[2020-02-05] MEDS: oxyCODONE HCL IR 5 MG TAB (IMMEDIATE RELEASE) PO PRN ×2 (05:08→18:58)
[2020-02-05] MEDS: ACETAMINOPHEN 500 MG TAB PO PRN ×2 (05:08→15:56)
[2020-02-05] MEDS: VANCOMYCIN HCL 1,000 MG in SODIUM CHLORIDE 0.9% 250 ML IV SCH ×3 (05:08→21:22)
[2020-02-05 06:13] LABS: Hematocrit (blood only) 26.5 % (37-47); Hemoglobin 8.8 g/dL (12.0-16.0); Mean Corpuscular Hemoglobin 28.4 pg (25-34); Mean Corpuscular Hgb Conc 33.2 g/dL (32-36); Mean Corpuscular Volume 85.5 fL (80-100); RDW Coefficient of Variation 12.7 % (11.5-14.5); RDW Standard Deviation 39.3 fL (36.4-46.3); White Blood Count 3.23 K/uL (4.8-10.8)
[2020-02-05] MEDS: BUTALBITAL/ACETAMIN/CAFFEINE TAB PO PRN ×2 (06:24→14:19)
[2020-02-05] MEDS: LIOTHYRONINE SODIUM 5 MCG TAB PO SCH (06:25)
[2020-02-05 06:32] LABS: Mean Platelet Volume 10.9 fL (7.4-10.4); Platelet Count 90 K/uL (130-400)
[2020-02-05 06:35] LABS: INR 1.8 (0.9-1.1); Prothrombin Time 18.2 Seconds (9.0-12.0)
[2020-02-05 06:48] LABS: Albumin Level 2.3 gm/dl (3.4-5.0); BUN Creatinine Ratio 24.5 (10-20); Calcium 7.9 mg/dl (8.5-10.1); Creatinine Clr Calc Pharmacy 101.9 ml/min; Est GFR (African American) 123.1; Est GFR (Non-African American) 106.2; Potassium 3.6 mmol/L (3.5-5.1)
[2020-02-05 06:51] LABS: Albumin Globulin Ratio 0.7 (0.9-2); Bilirubin,Total 1.4 mg/dl (0.2-1); Globulin 3.3 gm/dl (2.5-4.0); Total Protein 5.6 gm/dl (6.4-8.2)
[2020-02-05] MEDS ORDERED: SODIUM CHLORIDE 0.9% 1000ML 500 ML IV ONE (07:36)
--- NOTE | 2020-02-05 08:38 | Hospitalist Progress Note ---
Date of Service February 05, 2020 Assessment & Plan (1) Cellulitis: Admit to med surg - Non purulent cellulitis vs chemotherapy reaction from gemcitabine? she presented with 3 distinct patches of erythema rather than one confluent area. But patient and understand and are in agreement with treating for infection first, then consider chemo reaction. Improved significantly with antibiotics so likely atypical cellulitis. - qSOFA negative - ESR 54 and CRP 9.68- mild/mod elevation, continue current abx therapy - Vancomycin and Clindamycin IV - Blood cultures pending (one set from peripheral, one set from medi-port) - follow - trend erythema, skin marked - improving (2) Triple negative malignant neoplasm of breast: - Originally diagnosed in November 2019. Current therapy as above (Taxol and Gemcitabine) first cycle day 10 on 02/04/20. - Onc consulted - appreciate recs - next chemo may be delayed due to abx therapy- defer to onc - Chemotherapy and management per Hematology/Oncology - Supportive therapy for nausea and pain given (3) Metastatic breast cancer: -Mets to left lung, hx of left lymph node resection many years ago and previous breast mass which was surgically removed, now with recurrence. -see above (4) Factor V deficiency: - Continue with Coumadin 5mg daily, therapeutic INR 1.8 for upper extremity VTE following lymph node biopsy. -Goal 1.6-2.1 per patient. (5) Fibromyalgia: - Continue home pain regimen with Methadone and OXY. Add in adjuvant therapy as needed. Tylenol PRN pain and fever as well. (6) Chronic pain disorder: - as above - Consider palliative care consult for goals of care, pain management (7) Rheumatoid arthritis: - Biologics stopped prior to induction of chemotherapy. Continue supportive care as above. (8) Hyperlipemia: - Simvastatin 40 mg qhs. Continue therapy. (9) Hypothyroidism: - Cont levothyroxine DVT ppx: -coumadin CODE: Full Dispo: Likely discharge within 24 hours Admission and Anticipated Discharge Date Admission Date: February 04, 2020 Subjective The patient was seen and examined this morning. Pt states doing much better today. The redness over the left breast, flank, and hip region is improved. She denies any fever, chills or sweats overnight. Has been eating and drinking well. Pt is ambulating about the rooom without difficulty. Her hair is really beginning to fall out, and she had planned on today being the day she shaved her head since stating chemotherapy, but is not sure she wants to do this yet, she just "want to be in charge of something". Pt notes mother was BRCA+, but sisters are negative. Pt with hx of multiple left sided lymph node resection 15 years ago from previous breast mass which was removed. is with her at bedside. Review of Systems Review of Systems: Constitutional: No fever, sweats or chills Eyes: No diplopia, no worsening or blurred vision ENT: normal hearing, no trouble swallowing Respiratory: No cough, sputum, dyspnea at rest or on exertion Cardiovascular: No chest pain, tightness or palpitations Breast: left breast with improved redness and less swelling Abdomen: No pain, nausea, vomiting, diarrhea or constipation Musculoskeletal: No joint pain, calf pain, swelling Neurologic: No weakness, numbness/tingling, or balance problems Psychiatric: No anxiety or depression Skin: rash is improving, no itch, nonpainful Physical Exam Physical Exam: General: awake, alert, no apparent distress Head: Normocephalic, atraumatic ENT: PERRL, EOMI, no pharyngeal exudate, mucous membranes moist Chest: Clear to auscultation, on room air, no adventitious breath sounds Cardiac: Regular rate and rhythm, no murmur, no JVD, normal peripheral pulses, good capillary refill Breast: Left breast erythema and edema improved, peau d'orange appearance on underside, improved erythema on mammary fold. Skin outlined, no erythema beyond the border. Abdominal: NABS x 4 quadrants, soft, nondistended, nontender to palpation, no rebound or guarding Extremities: Normal inspection, no peripheral edema or erythema, calfs nontender to palpation Psych: Normal mood and affect Neuro: AAO x 3, strength intact bilaterally and rated 5/5, no motor deficits, speech is clear, no peripheral sensory deficits Skin: Erythema outlined with skin marker on admission, 3 distinct patches over left flank, left hip all improved. Breast as above. Mediport site accessed, intact with no erythema or drainage. Results & Data Results & Data ([facility]) Vital Signs (Past 12 Hours) Vital Signs Temp Pulse Resp BP Pulse Ox 02/05/20 07:38 37 C 85 16 96/59 L 97 02/05/20 00:03 89/51 L 02/04/20 23:50 37.3 C 105 H 18 79/49 L 94 PG Care Time/CCT Total # of Minutes Spent Total Time Spent with Patient: Total time spent is greater than 50% in coordination of care (as documented) at patient's floor/unit and/or counseling patient: Coding Level of Care Code 44915 Subseq Hosp Care Lvl 3 Diagnoses Cellulitis L03.313 Site of cellulitis: trunk Site of cellulitis of trunk: chest wall Triple negative malignant neoplasm of breast C50.919 Metastatic breast cancer C50.919 Factor V deficiency D68.2 Fibromyalgia M79.7 Chronic pain disorder G89.4 Rheumatoid arthritis M06.9 Hyperlipemia E78.5 Hypothyroidism E03.9 (1) Cellulitis Site of cellulitis: trunk Site of cellulitis of trunk: chest wall Qualified Code(s): L03.313 - Cellulitis of chest wall
[2020-02-05] MEDS: bisacodyL 5 MG TABEC PO SCH (08:52)
[2020-02-05] MEDS: ANASTROZOLE 1 MG TAB PO SCH ×3 (08:52→09:24)
[2020-02-05] MEDS: METHADONE HCL 10 MG TAB PO SCH ×2 (08:52→21:22)
[2020-02-05] MEDS: PANTOprazole 40 MG TAB PO SCH (09:25)
--- NOTE | 2020-02-05 12:26 | Electrocardiogram Report ---
Test Reason : Blood Pressure : / mmHG Vent. Rate : 102 BPM Atrial Rate : 102 BPM P-R Int : 128 ms QRS Dur : 082 ms QT Int : 348 ms P-R-T Axes : 056 070 028 degrees QTc Int : 453 ms Sinus tachycardia Normal ECG When compared with ECG of 19-JAN-2020 05:47, Premature atrial complexes are no longer Present Confirmed by Den Coleman ([id number]) on 02/05/2020 12:26:22 PM Referred By: Vito Vee Confirmed By:Den Coleman
[2020-02-05] MEDS: LACTOBACILLUS ACIDOPHILUS 1 GM PACK PO SCH ×2 (12:41→15:57)
[2020-02-05] MEDS: WARFARIN SOD 5 MG TAB PO SCH (15:56)
[2020-02-05] MEDS ORDERED: HEPARIN 100 UNIT/ML 5ML FLUSH ONE (17:18)
--- NOTE | 2020-02-05 18:12 | Consultation Report ---
DATE OF CONSULTATION: 02/05/2020 MEDICAL ONCOLOGY CONSULTATION REASON FOR CONSULTATION: A 54-year-old female with metastatic breast cancer, admitted for suspected cellulitis. HISTORY OF PRESENT ILLNESS: Luly is a very pleasant 54-year-old patient with metastatic triple negative breast cancer diagnosed in November of this year. She recently was started on combination gemcitabine and paclitaxel. After her first course of chemotherapy, not surprisingly developed low-grade fever, which I believe was attributable to gemcitabine effect. She then received day #8 of the cycle 1 on 02/02/2020. Over the past 48 hours or so, started to notice a rash involving the mammary fold of her left breast extending to her axillary region. She also has a couple of erythematous plaques that are just below the area extending down into the thigh. I was contacted by her yesterday morning when he reported low-grade fever and advised him to treat her fever and call me back if fever increases or symptoms are worse. He subsequently did call around noon, thus instructed him to go to the Emergency Room. She was given both vancomycin and cefepime and admitted to the hospitalist service. PAST MEDICAL HISTORY: Significant for metastatic triple negative breast cancer, antiphospholipid syndrome, cholelithiasis, fibromyalgia, lupus anticoagulant positive. PAST SURGICAL HISTORY: Includes axillary cyst resection, cholecystectomy, bilateral tubal ligation, breast biopsy, suboccipital craniotomy, lumpectomy and hysterectomy. CURRENT MEDICATIONS: Include dexamethasone 20 mg p.o. daily for appetite stimulation, alprazolam 0.5 mg p.o. q.6 hours p.r.n., Ambien 12.5 mg p.o. at bedtime p.r.n., warfarin 5 mg p.o. daily, simvastatin 40 mg p.o. daily, oxycodone/acetaminophen 5/325 one p.o. q.4 hours p.r.n., Zofran 8 mg p.o. q.8 hours p.r.n., Ritalin 20 mg p.o. daily, methadone 10 mg p.o. b.i.d., liothyronine 10 mcg p.o. every day, diclofenac gel topical q.i.d. p.r.n., cyclobenzaprine 10 mg p.o. t.i.d. p.r.n. and butalbital/acetaminophen/caffeine 50/300/40 mg capsules 1 p.o. q.4 hours p.r.n. for headache. ALLERGIES: ADHESIVE, POVIDONE, HYDROCODONE, METHOCARBAMOL, PROPOXYPHENE, SOAP AND CODEINE. FAMILY HISTORY: Mother with breast cancer. Grandmother with heart disease and breast cancer. SOCIAL HISTORY: The patient lives with her spouse. She is a nonsmoker, nondrinker. REVIEW OF SYSTEMS: As per HPI, most notably for intermittent low-grade fever and erythema of the left breast and left flank. She is mildly anorexic, was started on prednisone. Positive for weight loss prior to diagnosis. HEENT: Negative for headaches, lightheadedness or dizziness. No acute visual or hearing deficits. No sinus symptoms, sore throat or dysphagia. LYMPHATICS: No history of lymphoproliferative disease. CARDIAC: Negative for angina or palpitations. PULMONARY: Negative for COPD. She is not short of breath, dyspneic or orthopneic. No cough or hemoptysis. GASTROINTESTINAL: Negative for abdominal pain, nausea, vomiting, diarrhea or constipation, hematochezia or melena stools. GENITOURINARY: No hematuria, dysuria, or urinary incontinence. MUSCULOSKELETAL: No arthralgias or myalgias. No focal muscle weakness. ENDOCRINE: Negative for diabetes or thyroid disease. NEUROLOGIC: Negative for seizure or stroke. Positive for migraine headache by history. HEMATOLOGIC: Positive for anemia, positive for leukopenia and thrombocytopenia, all attributable to treatment effect. PHYSICAL EXAMINATION: GENERAL: Very pleasant 54-year-old female. Awake, alert and appropriate, in no acute distress. VITAL SIGNS: Temperature 37, pulse 85, respiratory rate 16, blood pressure 96/59. SKIN: Again, the erythema is well demarcated in the lower left breast fold extending down into the left flank. These areas have been demarcated by the hospitalist managing Ms. Álvarez. HEENT: Atraumatic, normocephalic. Eyes: PERRLA, EOMI. Sclerae nonicteric. Nares patent without rhinorrhea or discharge. Throat clear. Tongue midline. Mucous membranes are moist. NECK: Supple. HEART: Regular rate and rhythm. No clicks, rubs, murmurs or gallops. LUNGS: Clear to auscultation bilaterally. ABDOMEN: Soft, nontender, nondistended, without palpable hepatosplenomegaly. EXTREMITIES: No calf tenderness or swelling. No clubbing, cyanosis or edema. MUSCULOSKELETAL: Strength and pulses are equal in all 4 quadrants. NEUROLOGICALLY: She is awake, alert and oriented x3. Cranial nerves are grossly intact. LABORATORY DATA: WBC count 3230, hemoglobin 8.8, platelet count 90,000. PT 18.2 seconds, INR 1.8, on Coumadin. Sodium 138, potassium 3.6, chloride 106, carbon dioxide 27, creatinine 0.54, BUN 13. IMPRESSION: 1. Cellulitis, left breast/left flank. 2. Triple negative metastatic breast cancer. 3. Factor V Leiden mutation. 4. Fibromyalgia. 5. Rheumatoid arthritis. 6. Hypothyroidism. PLAN: It was my pleasure to visit with Luly, who is accompanied by her at bedside this morning. Luly has been struggling, recently completed her first cycle of paclitaxel and gemcitabine in salvage for metastatic triple negative breast cancer. Luly has experienced low-grade fever associated with gemcitabine. However, yesterday which started out as a low-grade fever steadily increased throughout the day, thus her had contacted me twice yesterday and I instructed him to bring her to the Emergency Room. She does have significant erythema in the under side of her left breast as well as 2 separate erythematous patches extending down towards the left pelvic region. According to nursing, these areas have certainly lightened up, which would suggest perhaps she does have cellulitic component. Blood cultures thus far are negative. Urine cultures are also pending. The patient is presently on vancomycin and Cleocin, both of which I agree. Obviously chemotherapy will be held until patient is medically stable. Luly on the whole seems to be doing much better since admission. I anticipate she will be hospitalized for a couple more days. We will plan on reevaluating her before she receives cycle #2 moving forward. Thank you very much for allowing me to participate in her care and I will continue to follow her periodically during her hospitalization.
[2020-02-05] MEDS ORDERED: ACETAMINOPHEN 1000 MG/100 ML IV IV ONE (20:42)
[2020-02-05] MEDS: SIMVASTATIN 40 MG TAB PO SCH (21:13)
[2020-02-06] MEDS: ALPRAZolam 0.5 MG TABLET PO PRN ×2 (00:17→21:37)
[2020-02-06] MEDS: oxyCODONE HCL IR 5 MG TAB (IMMEDIATE RELEASE) PO PRN ×3 (00:22→21:37)
[2020-02-06] MEDS: CLINDAMYCIN 600 MG in DEXTROSE 5% 50 ML IV SCH ×3 (00:23→16:02)
[2020-02-06] MEDS ORDERED: Nursing to Pharmacy Communication SCH (01:30)
[2020-02-06] MEDS ORDERED: ACETAMINOPHEN 500 MG TAB PO PRN (01:57)
[2020-02-06] MEDS: VANCOMYCIN HCL 1,000 MG in SODIUM CHLORIDE 0.9% 250 ML IV SCH ×2 (04:43→13:00)
[2020-02-06 06:32] LABS: Hematocrit (blood only) 23.9 % (37-47); Mean Corpuscular Hemoglobin 28.4 pg (25-34); Mean Corpuscular Hgb Conc 33.5 g/dL (32-36); Mean Corpuscular Volume 84.8 fL (80-100); RDW Coefficient of Variation 12.5 % (11.5-14.5); RDW Standard Deviation 39.4 fL (36.4-46.3); Red Blood Count 2.82 M/uL (4.2-5.4); White Blood Count 1.65 K/uL (4.8-10.8)
[2020-02-06 06:38] LABS: Mean Platelet Volume 10.9 fL (7.4-10.4); Platelet Count 93 K/uL (130-400)
[2020-02-06 06:39] LABS: INR 2.1 (0.9-1.1); Prothrombin Time 21.7 Seconds (9.0-12.0)
[2020-02-06] MEDS: HEPARIN 100 UNIT/ML 5ML FLUSH FLUSH PRN ×3 (06:53→17:14)
[2020-02-06] MEDS: LIOTHYRONINE SODIUM 5 MCG TAB PO SCH (06:53)
[2020-02-06 07:00] LABS: Albumin Level 2.2 gm/dl (3.4-5.0); BUN Creatinine Ratio 23.2 (10-20); Creatinine Clr Calc Pharmacy 126.8 ml/min; Est GFR (African American) 131.7; Est GFR (Non-African American) 113.6; Potassium 3.4 mmol/L (3.5-5.1)
[2020-02-06 07:11] LABS: Albumin Globulin Ratio 0.6 (0.9-2); Bilirubin,Total 0.4 mg/dl (0.2-1); Globulin 3.4 gm/dl (2.5-4.0); Total Protein 5.6 gm/dl (6.4-8.2)
[2020-02-06] MEDS: METHADONE HCL 10 MG TAB PO SCH ×2 (08:27→21:36)
[2020-02-06] MEDS: bisacodyL 5 MG TABEC PO SCH (08:28)
[2020-02-06] MEDS: PANTOprazole 40 MG TAB PO SCH (08:28)
[2020-02-06] MEDS: LACTOBACILLUS ACIDOPHILUS 1 GM PACK PO SCH ×2 (08:29→13:13)
[2020-02-06] MEDS ORDERED: POTASSIUM CHLORIDE CRTAB 20 MEQ TABCR PO ONE (08:45)
[2020-02-06 08:51] LABS: Eosinophils # (auto) 0.09 K/uL (0-0.5); Eosinophils % (auto) 5.1 %; Lymphocytes # (auto) 0.59 K/uL (1.2-3.4); Lymphocytes % (auto) 33.7 %; Monocytes # (auto) 0.01 K/uL (0.11-0.59); Monocytes % (auto) 0.6 %; Neutrophils # (auto) 1.06 K/uL (1.4-6.5); Neutrophils % (auto) 60.6 %
[2020-02-06] MEDS ORDERED: VANCOMYCIN TROUGH ONE (11:30)
[2020-02-06 12:20] LABS: Hematocrit (blood only) 23.9 % (37-47); Hemoglobin 7.9 g/dL (12.0-16.0)
[2020-02-06] MEDS ORDERED: HYDROmorphone INJ 0.5 MG/0.5 ML SYR IV PRN (12:47)
[2020-02-06] MEDS: WARFARIN SOD 5 MG TAB PO SCH (16:03)
[2020-02-06] MEDS: ACETAMINOPHEN 1,000 MG/100 ML VIAL IV PRN (16:47)
--- NOTE | 2020-02-06 17:59 | Hospitalist Progress Note ---
Date of Service February 06, 2020 Assessment & Plan (1) Metastatic breast cancer: Status post chemo therapy with paclitaxel and gemcitabine Patient appears to be approaching antonio Currently with pancytopenia. Differential check today and patient's absolute neutrophil count is 1060 Follow serial labs Oncology has been consulted and patient has been seen by Dr. Luke Continue supportive care Further management of breast cancer per Dr. Luke (2) Cellulitis: Question of cellulitis around breast and ipsilateral side Procalcitonin level is negative is 0.05 Rash seems to be improved Blood cultures x2 are negative for growth I suspect this may be a reaction to the chemotherapy Patient is afebrile We will discontinue vancomycin at this time and continue with clindamycin and follow expectantly (3) Chronic pain disorder: Patient is followed with Dr. Francisco for several years and is currently on oxycodone as well as methadone Patient states that she responds well to IV Tylenol. This has been ordered e very 8 hours Continue with tramadol and oxycodone. 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 No active bleeding Patient currently is developing thrombocytopenia from chemotherapy Consider holding warfarin if platelet count is decreased again tomorrow (6) Rheumatoid arthritis: Patient was previously on methotrexate Currently treating arthritic pain with chronic pain meds (7) Hyperlipemia: Continue Simvastatin Outpatient management (8) DVT prophylaxis: Continue warfarin INR 2.1 Admission and Anticipated Discharge Date Admission Date: February 04, 2020 Supervising Physician Co-Signing Physician Notes Improving cellulitis vs chemo reaction Chart noted De-escalating abx use Subjective Attending: Dr. Lovely Martinez This is a 54-year-old female that was admitted February 04, 2020 question cellulitis under her left breast and extending down her hip. The patient does have newly diagnosed breast cancer and did receive chemotherapy with gemcitabine and paclitaxel. Procalcitonin is negative. Patient is afebrile. Patient does not have leukocytosis but did just receive chemotherapy and this possibly could be antonio with pancytopenia. She complains of generalized pain and achiness. She is on oxycodone immediate release but re quest Tylenol IV as this has worked for her in the past. She also is on chronic anticoagulation secondary to factor V Leyden deficiency. She also is on methadone as prescribed by her primary care provider. She has no active bleeding. Platelet count is dropped from 134,000 January 13, 2020 down to 93,000 today. Absolute neutrophil count is 1060. Patient denies any fever or chills. She has no difficulty with shortness of breath or dyspnea with exertion. She has no discharge from her breast or nipple and also has no discharge from the areas of erythema. She denies diarrhea. She has no nausea or vomiting. She has generalized malaise. She also reports a metallic taste with food. Review of Systems Review of Systems: All systems reviewed & are unremarkable except as noted in Subjective Physical Exam Physical Exam: GENERAL : No acute distress EYES: No icterus, gaze conjugate NOSE: No evidence of epistaxis MOUTH: No lesions or candidiasis NECK: Supple LUNGS: CTA B/L, no wheezes, rales or rhonchi Chest: Patient with area of erythema of the encircles the areola of the left breast and extends down in blotchy rash type configurations they are not confluent to the left hip. These have no discharge and are not painful to touch. HEART: Regular, rate controlled ABDOMEN: Soft, NT, ND, BS Present EXTREMITIES: No LE edema, pedal pulses intact and equal bilaterally NEURO: A&OX3 Results & Data Results & Data ([facility]) Vital Signs (Past 12 Hours) Vital Signs Temp Pulse Resp BP Pulse Ox 02/06/20 16:15 97/62 L 02/06/20 15:04 37.0 C 95 H 16 88/50 L 98 02/06/20 08:02 37 C 98 H 16 98/61 L 97 Laboratory Results 02/06/20 12:04 02/06/20 05:40 Diagnostic Findings No further diagnostic imaging since 02/04/2020 PG Care Time/CCT Total # of Minutes Spent Total Time Spent with Patient: Total time spent is greater than 50% in coordination of care (as documented) at patient's floor/unit and/or counseling patient: 40 minutes with discussion with patient and over three visits. Coding Level of Care Code 87088 Subseq Hosp Care Lvl 3 Diagnoses Metastatic breast cancer C50.919 Cellulitis L03.313 Site of cellulitis: trunk Site of cellulitis of trunk: chest wall Chronic pain disorder G89.4 Fibromyalgia M79.7 Factor V deficiency D68.2 Rheumatoid arthritis M06.9 Hyperlipemia E78.5 DVT prophylaxis Z29.9 (1) Cellulitis Site of cellulitis: trunk Site of cellulitis of trunk: chest wall Qualified Code(s): L03.313 - Cellulitis of chest wall
[2020-02-06] MEDS: SIMVASTATIN 40 MG TAB PO SCH (21:36)
[2020-02-07] MEDS: CLINDAMYCIN 600 MG in DEXTROSE 5% 50 ML IV SCH ×2 (00:11→07:54)
[2020-02-07] MEDS: ACETAMINOPHEN 1,000 MG/100 ML VIAL IV PRN ×2 (01:29→11:20)
[2020-02-07] MEDS: HEPARIN 100 UNIT/ML 5ML FLUSH FLUSH PRN ×3 (01:35→15:53)
[2020-02-07] MEDS: LIOTHYRONINE SODIUM 5 MCG TAB PO SCH (06:32)
[2020-02-07] MEDS: oxyCODONE HCL IR 5 MG TAB (IMMEDIATE RELEASE) PO PRN (08:05)
[2020-02-07] MEDS: PANTOprazole 40 MG TAB PO SCH (08:34)
[2020-02-07] MEDS: bisacodyL 5 MG TABEC PO SCH (08:34)
[2020-02-07] MEDS: METHADONE HCL 10 MG TAB PO SCH (08:34)
[2020-02-07 08:47] LABS: INR 2.2 (0.9-1.1); Prothrombin Time 22.4 Seconds (9.0-12.0)
[2020-02-07 08:57] LABS: Eosinophils # (auto) 0.03 K/uL (0-0.5); Eosinophils % (auto) 5.1 %; Hematocrit (blood only) 24.6 % (37-47); Hemoglobin 8.3 g/dL (12.0-16.0); Lymphocytes # (auto) 0.41 K/uL (1.2-3.4); Lymphocytes % (auto) 69.5 %; Mean Corpuscular Hemoglobin 28.6 pg (25-34); Mean Corpuscular Hgb Conc 33.7 g/dL (32-36); Mean Corpuscular Volume 84.8 fL (80-100); Mean Platelet Volume 9.9 fL (7.4-10.4); Neutrophils # (auto) 0.15 K/uL (1.4-6.5); Neutrophils % (auto) 25.4 %; Platelet Count 113 K/uL (130-400); RDW Coefficient of Variation 12.4 % (11.5-14.5); RDW Standard Deviation 38.5 fL (36.4-46.3); White Blood Count 0.59 K/uL (4.8-10.8)
[2020-02-07] MEDS ORDERED: ADVANCED PROBIOTIC 1250 MG CAPSULE PO SCH (09:00)
[2020-02-07 09:10] LABS: Albumin Level 2.4 gm/dl (3.4-5.0); BUN Creatinine Ratio 17.5 (10-20); Calcium 8.6 mg/dl (8.5-10.1); Creatinine Clr Calc Pharmacy 126.8 ml/min; Est GFR (African American) 131.7; Est GFR (Non-African American) 113.6; Magnesium 2.1 mg/dl (1.8-2.4); Potassium 3.6 mmol/L (3.5-5.1)
[2020-02-07 09:13] LABS: Albumin Globulin Ratio 0.6 (0.9-2); Bilirubin,Total 0.4 mg/dl (0.2-1); Globulin 3.7 gm/dl (2.5-4.0); Total Protein 6.1 gm/dl (6.4-8.2)
--- NOTE | 2020-02-07 09:27 | Progress Notes ---
DATE: 02/07/2020 DIAGNOSES: 1. Cellulitis, left breast/left flank. 2. Triple negative metastatic breast cancer. 3. Factor V Leiden. 4. Fibromyalgia. 5. Rheumatoid arthritis. SUBJECTIVE: The patient was seen and examined at bedside. The erythema definitely appears a bit enterostomal nurse. She reports no fever or chills. The patient also reports a vigorous appetite quoting "I am the hungriest patient in this hospital." She reports no pain and continues broad-spectrum antibiotics. Blood cultures actually are negative thus far. Nursing reports no overnight difficulties as it pertains to the patient. OBJECTIVE: GENERAL: A very pleasant 54-year-old female. Awake, alert and appropriate, in no acute distress. VITAL SIGNS: Temperature 37.1, pulse 91, respiratory rate 14, blood pressure 88/47. SKIN: Without rash or lesion. HEENT: Oral mucosa without erythema or ulceration. HEART: Regular rate and rhythm. LUNGS: Clear to auscultation bilaterally. ABDOMEN: Soft, nontender, nondistended. EXTREMITIES: No clubbing, cyanosis or edema. NEUROLOGIC: Grossly intact. LABORATORY DATA: Hemoglobin 7.9, hematocrit 23.9. IMPRESSION: 1. Cellulitis, left breast/left flank. 2. Triple negative metastatic breast cancer. 3. Persistent low-grade fever. 4. Rheumatoid arthritis. 5. Fibromyalgia. PLAN: The patient is definitely feeling better. Clearly, her appetite has picked up. She reports no pain issues and has not had fever in a couple of days now. Remain somewhat skeptical about the cellulitis diagnosis. Her breast was erythematous upon diagnosis of her cancer. She is receiving carboplatin and gemcitabine, which I believe the latter was largely responsible for her ongoing fever. Blood cultures thus far are negative. The patient continues to make strides, I see no reason why she cannot be discharged in the next day or two. We will discuss further with the hospitalists. Otherwise I will continue to follow the patient during her hospital stay. Thank you very much for allowing me to participate in her care.
--- NOTE | 2020-02-07 15:23 | Discharge Summary ---
Date of Service February 07, 2020 Admission HPI Per Admitting Provider 54 YOF recently diagnosed with metastatic triple negative breast cancer (mTNBC) in November. Patient has since undergone lymph node biopsy on 01/02/2020, and placement of RSCL medi-port on 01/19/2020. Patient is currently undergoing chemotherapy with taxol and gemcitabine (currently on day 10) last treatment was on 02/02/20. Patient noticed rash on breast within past 48 hours. The rash started at mammory fold and spread to her underarm. Since coming to the emergency room, the erythema has spread down to left flank and down left lateral hip. The erythema has a break at her panty line. There is no drainage, there is no nidus of entry noted. Patient denies any scratches or other injuries at site or at breast. The site is associated with warmth, fevers, nausea and no vomiting. Patient has take tylenol at home for fever with minimal relief. Of note patient has been having fevers and body-aches/bone pain since starting her chemotherapy on 01/27/2020. Discharge Data Allergies Allergy/AdvReac Type Severity Reaction Status Date / Time adhesive Allergy Unknown Rash Verified 02/04/20 12:35 povidone Allergy Unknown Blisters Verified 02/04/20 12:35 acetaminophen [From Lortab] Allergy Unknown Verified 02/04/20 12:35 hydrocodone [From Lortab] Allergy Unknown Verified 02/04/20 12:35 iodine Allergy Blisters Verified 02/04/20 12:35 methocarbamol [From Robaxin] Allergy Unknown Verified 02/04/20 12:35 povidone-iodine Allergy Blisters Verified 02/04/20 12:35 [From Betadine] propoxyphene [From Darvon] Allergy Unknown Verified 02/04/20 12:35 soap [From Betadine] Allergy Blisters Verified 02/04/20 12:35 codeine AdvReac Intermediate Severe Verified 02/04/20 12:35 headache, nausea Consultations 02/04/20 14:58 ED Decision to Admit Stat 02/04/20 18:14 Consult Hematology Routine Ordered Studies 02/04/20 12:36 breast limited Stat Hospital Course (1) Metastatic breast cancer: Status post chemo therapy with paclitaxel and gemcitabine Patient appears to be approaching antonio Currently with pancytopenia. Differential check today and patient's absolute neutrophil count is 1060 Follow serial labs Oncology has been consulted and patient has been seen by Dr. Luke Continue supportive care Further management of breast cancer per Dr. Luke (2) Cellulitis: Question of cellulitis around breast and ipsilateral side Procalcitonin level is negative is 0.05 Rash seems to be improved Blood cultures x2 are negative for growth I suspect this may be a reaction to the chemotherapy Patient is afebrile We will discontinue vancomycin at this time and continue with clindamycin and follow expectantly (3) Chronic pain disorder: Patient is followed with Dr. Francisco for several years and is currently on oxycodone as well as methadone Patient states that she responds well to IV Tylenol. This has been ordered every 8 hours Continue with tramadol and oxycodone. 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 No active bleeding Patient currently is developing thrombocytopenia from chemotherapy Consider holding warfarin if platelet count is decreased again tomorrow (6) Rheumatoid arthritis: Patient was previously on methotrexate Currently treating arthritic pain with chronic pain meds (7) Hyperlipemia: Continue Simvastatin Outpatient management (8) DVT prophylaxis: Continue warfarin INR 2.1 Discharge Plan Discharge Items Patient Disposition: Home - Self-Care Reason For Visit: CELLULITIS Discharge Diagnosis: Inflammatory breast cancer Neutropenia Pancytopenia Activity: Resume your previous activity Lifting: Gradually increase as tolerated Bathing: No limitations Sexual Activity: When tolerated Weightbearing: Full weightbearing Non-emergency contact: Oncologist Call non-emergency contact if: your symptoms worsen and you have a fever Follow-up/Referrals: Akbar Francisco Jr, DO [Primary Care Provider] - Diet: Regular Addtl Attending Provider Instructions: You were admitted with presumed cellulitis of the left breast, left flank, and left hip. Blood cultures were negative. We checked an enzyme (procalcitonin) which is elevated when there is bacteria. This was negative. You had no fever during your hospital stay. It is presumed that the rash and area of inflammation as result of your cancer or from the chemotherapy that you recently received. You are not being sent home on any antibiotics. Your white blood cells, hemoglobin, and platelet count is decreased. This is most likely from the chemotherapy. This is called pancytopenia and should improve. He also had a low number of immature white cells. This is called neutropenia. Until these counts improve, you are at increased risk for infection. You have an appointment set up for you later this week with Dr. Martinez for lab work. In the event that you develop fever or worsening symptoms, you should call Dr. Martinez's office or report to the emergency department. As part of her routine screening for admission, you had a COVID-19 PCR test performed. This was negative. It is recommended that once discharged, you stay at home and isolate and practice good handwashing technique and wear a mask around other people. You should also practice social distancing. You should also discuss the benefit of influenza, pneumonia, and herpetic zoster (shingles) vaccination with Dr. Martinez. Pending Studies at Discharge: No Stand-Alone Forms: My [facility] Medications and DC Order Prescriptions: New Advanced Probiotic 625 mg (10 billion cell) Capsule 2 cap PO DAILY Qty: 60 RF: 2 pantoprazole 40 mg Tablet,Delayed Release (Dr/Ec) 40 mg PO QAM Qty: 30 RF: 2 Continued cyclobenzaprine 10 mg tablet 10 mg PO TID PRN (Reason: Muscle Spasm) RF: 0 tpcbzaszmg-gkljzglbilhbj-olic [Fioricet] 50-300-40 mg capsule 1 cap PO Q4H PRN (Reason: Migraine Headache) RF: 0 liothyronine [Cytomel] 5 mcg tablet 10 mcg PO QAM RF: 0 simvastatin [Zocor] 40 mg tablet 40 mg PO QPM RF: 0 oxycodone-acetaminophen [Percocet] 5-325 mg tablet 1 tab PO Q4H PRN (Reason: Pain) RF: 0 methadone [Dolophine] 10 mg tablet 10 mg PO BID RF: 0 zolpidem [Ambien CR] 12.5 mg tablet,ext release multiphase 12.5 mg PO DAILY PRN (Reason: insomnia ) RF: 0 warfarin 5 mg tablet 5 mg PO DAILY RF: 0 ondansetron HCl 8 mg tablet 8 mg PO Q8H PRN (Reason: Nausea And Vomiting) RF: 0 methylphenidate HCl [Ritalin] 10 mg tablet 20 mg PO QAM RF: 0 diclofenac sodium 1 % gel 2 g topical QID PRN (Reason: Pain) RF: 0 anastrozole 1 mg tablet 1 mg PO DAILY RF: 0 alprazolam 0.5 mg tablet 0.5 mg PO Q6H PRN (Reason: Anxiety) RF: 0 dexamethasone 4 mg tablet 20 mg PO UD RF: 0 Discharge Orders: Discharge Order (Routine); Ordered 02/07/20 Ordered By: John Finch Admission Data Admit Date/Time: 02/04/20 16:00 Attending Provider: Ag Woo Admit Provider: Howard Juan Primary Care Provider: Akbar Francisco Jr Other Providers: Howard Juan ; Rodri Martinez V. Coding Diagnoses Metastatic breast cancer C50.919 Cellulitis L03.313 Site of cellulitis: trunk Site of cellulitis of trunk: chest wall Chronic pain disorder G89.4 Fibromyalgia M79.7 Factor V deficiency D68.2 Rheumatoid arthritis M06.9 Hyperlipemia E78.5 DVT prophylaxis Z29.9
== END 2020-02-07 17:02 | disposition home or self-care (01) | DRG 603 ==
LOC: ED 12:07 → SUATTDRO 16:00 → 3E 16:00

== ENCOUNTER 2020-04-03 15:23 | Inpatient (IN) ==
--- NOTE | 2020-04-03 15:52 | Emergency Department Note ---
Impression & Plan Pulmonary embolism, Chest pain ED Provider Note NAME: KATARINA SALGADO AGE: 54 SEX: F : 1965 ARRIVES VIA: Walk-In INFORMANT: Patient, ED PROVIDER(S): Leandro Armstrong DO CHIEF COMPLAINT: Chest pain HPI: The patient is a 54-year-old female who presented to the emergency department for an evaluation of chest pain and difficulty breathing. The patient has a history of factor V Leiden and takes Coumadin. She monitors her INR at home and her most recent INR was therapeutic. She states that she also has a history of metastatic breast cancer. She has been experiencing chest pain which has been pleuritic in nature as well as difficulty breathing with exertion. She was sent to the emergency department today from the cancer center after she had laboratory studies and a CT of the chest which did reveal signs of a subsegmental pulmonary embolism. There is concerned that the patient would need IV heparin. She denies having any hematuria or rectal bleeding. She denies having any abdominal pain. She has noticed no swelling in her legs. She does not have a history of DVT recently. She states that she has been compliant with all of her medications including her Coumadin. Her last chemotherapy was 8 days ago. She has no fever or cough. She was tested positive for COVID-19 in January of past year. ROS: See above HPI for pertinent positives & negatives. A total of 10 systems reviewed and were otherwise negative. PAST MEDICAL HISTORY: See Below PAST SURGICAL HISTORY: See Below FAMILY HISTORY: See Below SOCIAL HISTORY: See Below HOME MEDICATIONS: See Below ALLERGIES: See Below VITALS: See Below PHYSICAL EXAMINATION: GENERAL: Patient is awake alert in no acute distress patient is resting comfortably and showing no signs of anxiety EYES: The conjunctivae are clear. The pupils are round and reactive. EARS, NOSE, MOUTH AND THROAT: The nose is without any evidence of any deformity. Mucous membranes are moist. Tongue is midline. NECK: The neck is nontender and supple. RESPIRATORY: Normal respiratory effort is noted there is no evidence of wheezing rhonchi or rales CARDIOVASCULAR: Regular rate and rhythm noted there no murmurs rubs or gallops normal S1 normal S2. GASTROINTESTINAL: The abdomen is soft. Abdomen is nontender. MUSCULOSKELETAL/EXTREMITIES: There is no evidence of gross deformity full range of motion is noted in the hips and shoulders. SKIN: Skin is warm and dry. Trace pedal edema was noted bilaterally. NEUROLOGIC: Patient is awake alert and oriented x3. MEDICAL DECISION MAKING: The patient is a 54-year-old female who has a history of factor V Leiden as well as metastatic breast cancer who presented to the emergency department for chest pain. The patient had an outpatient work-up which included a CT of the chest. This was positive for a pulmonary embolism. Pulmonary embolism was subsegmental however given the patient's previous medical history as well as her concurrent use of Coumadin she was felt to be a better candidate for inpatient management. She was started on heparin in the emergency department. I discussed her case with the on-call [facility]. They have agreed to evaluate the patient in the emergency department for further management and disposition. Triage Nursing notes reviewed. Prior medical records reviewed Vital Signs: reviewed and remarkable for tachycardia Differential diagnosis: Cardiac ischemia, aortic dissection, pulmonary embolism, pneumothorax, pneumo delon, pericarditis, myocarditis, esophageal rupture, GERD, cholecystitis, pancreatitis, musculoskeletal, as well as other pathologies. ER treatment provided: See below Diagnostics interpreted by me: ECG: EKG was obtained in the emergency department. My interpretation is sinus tachycardia at 106 bpm. There is no ectopy. Nonspecific ST segment abnormalities were noted in the inferior leads. This was compared to a tracing from February 04, 2020. No significant changes were noted. Cardiac Monitoring: An order was placed for continuous cardiac monitoring. The monitor shows a rate of 110 bpm with sinus tachycardia rhythm. Laboratory studies: As stated above and show below. Imaging studies: See below Consultation(s): [id number]: I discussed this case with Dr. Iyer who is on-call for the [facility] group. ED COURSE: Procedures: Critical Care: I have personally spent greater than 45 minutes of critical care time in the direct management of this patient. This includes bedside care, interpretation of diagnostic studies, and testing, discussion with consultants, patient, and family members, and other required patient management activities. This 45 minutes is in excess of all separately billable procedures. Past Med/Surg History Medical History (Updated 04/03/20 @ 20:43 by Leandro Armstrong DO) Antiphospholipid antibody syndrome Factor V Leiden Fibromyalgia History of blood clots hx of small vessel eye blood clots per remote [facility] records, hx antiphospholipid antibody syndrome/lupus anticoagulant/factor V- on coumadin History of Chiari malformation s/p surgery/repair (2014), no acute findings on 01/13/20 brain MRI History of HPV infection Hyperlipidemia Hypothyroidism IBD (inflammatory bowel disease) Jaw pain, non-TMJ Lupus anticoagulant syndrome Lymphedema Metastatic breast cancer recent diagnosis; mets to lungs, lymph nodes Migraines Rheumatoid arthritis Surgical History CSF leak post craniotomy; surgically repaired 2014 History of breast biopsy History of cholecystectomy History of colonoscopy History of craniotomy suboccipital craniectomy, C1 laminectomy, and duraplasty to treat a type 1 Chiari malformation 2014 [place] History of D&C x2 History of excision of mass vulvar History of hysterectomy History of lumpectomy x 6 History of surgery on arm Left Brachial 1992 History of tooth extraction PONV (postoperative nausea and vomiting) Slow to wake up after anesthesia Surgical history of tubal ligation Family History Mother Breast cancer Grandmother Heart disease Breast cancer Other No family history of adverse response to anesthesia Social History Smoking Status: Former smoker packs per day: 1; Years Smoked: 35; Second Hand Exposure: No; Hx Alcohol Use: No Hx Substance Use: No Preferred Language: Montenegrin Communication Ability: Effective Peace Officer Required: No Beliefs That Will Affect Care: None marital status: Current Living Situation: Family current occupation: Homemaker Feels Safe at Home: Yes Assistive Devices: Glasses Allergies Allergies Allergy/AdvReac Type Severity Reaction Status Date / Time hydrocodone [From Lortab] Allergy Severe Headache Verified 04/03/20 16:37 adhesive Allergy Unknown Rash Verified 04/03/20 16:37 methocarbamol [From Robaxin] Allergy Unknown Unknown Verified 04/03/20 16:37 povidone Allergy Unknown Blisters Verified 04/03/20 16:42 povidone-iodine Allergy Unknown Blisters Verified 04/03/20 16:42 [From Betadine] propoxyphene [From Darvon] Allergy Unknown Headache Verified 04/03/20 16:37 soap [From Betadine] Allergy Unknown Blisters Verified 04/03/20 16:42 codeine AdvReac Intermediate Severe Verified 04/03/20 16:37 headache, nausea Home Meds Home Medications Medication Instructions Recorded Confirmed kdfojprtza-llyzazzrfuylh-ehhernyh 1 cap PO Q4H PRN 01/13/20 04/03/20 50 mg-300 mg-40 mg capsule cyclobenzaprine 10 mg tablet 10 mg PO TID PRN 01/13/20 04/03/20 diclofenac sodium 1 % topical gel 2 g TOPICAL QID PRN 01/13/20 04/03/20 liothyronine 5 mcg tablet 10 mcg PO QAM tab 01/13/20 04/03/20 methadone 10 mg tablet 10 mg PO TID tab 01/13/20 04/03/20 ondansetron HCl 8 mg tablet 4 - 8 mg PO Q8H PRN 01/13/20 04/03/20 oxycodone-acetaminophen 5 mg-325 1 tab PO Q4H PRN 01/13/20 04/03/20 mg tablet simvastatin 40 mg tablet 40 mg PO QPM 01/13/20 04/03/20 warfarin 5 mg tablet 5 mg PO DAILY tab 01/13/20 04/03/20 zolpidem 12.5 mg tablet,extended 12.5 mg PO DAILY PRN tab 01/13/20 04/03/20 release,multiphase alprazolam 0.5 mg PO BID PRN 02/04/20 04/03/20 dexamethasone 20 mg PO DIRECTED PRN 02/04/20 04/03/20 L.acidop,teo,lac,rha-B.lac,xena 2 cap PO DAILY PRN 04/03/20 04/03/20 [Advanced Probiotic] famotidine 20 mg PO BID 04/03/20 04/03/20 oxycodone 10 mg PO DIRECTED PRN 04/03/20 04/03/20 pantoprazole 40 mg PO BID 04/03/20 04/03/20 prochlorperazine maleate 10 mg PO Q6H PRN 04/03/20 04/03/20 Results & Data (ED) Vital Signs Vital Signs - 24 hr 04/03/20 15:28 04/03/20 15:42 04/03/20 17:26 Temperature 36.8 C Temperature Source Oral Pulse Rate 115 H Pulse Rate [Apical] 92 H Respiratory Rate 18 18 Blood Pressure 132/82 Blood Pressure [Right Arm] 88/51 L Blood Pressure Mean 98 Blood Pressure Mean [Right Arm] 63 Pulse Oximetry 97 97 97 Oxygen Delivery Method Room Air Room Air Room Air Sepsis Recent Fever Within 48 Hours No Sepsis New/Unexplained Change in Mental Status No Sepsis Action Taken by Nursing No Action Required 04/03/20 19:46 Temperature Temperature Source Pulse Rate Pulse Rate [Apical] 96 H Respiratory Rate 20 Blood Pressure Blood Pressure [Right Arm] 104/67 Blood Pressure Mean Blood Pressure Mean [Right Arm] 79 Pulse Oximetry 98 Oxygen Delivery Method Room Air Sepsis Recent Fever Within 48 Hours Sepsis New/Unexplained Change in Mental Status Sepsis Action Taken by Residential Medications Current Medication List: was personally reviewed by me Laboratory Data Attestation: I reviewed the patient's lab results. Result diagrams: 04/03/20 16:00 04/03/20 16:00 Lab Results 04/03/20 04/03/20 04/03/20 Range/Units 16:00 16:00 16:00 WBC 18.99 H (4.8-10.8) K/uL RBC 3.70 L (4.2-5.4) M/uL Hgb 10.7 L (12.0-16.0) g/dL Hct 32.1 L (37-47) % MCV 86.8 (80-100) fL MCH 28.9 (25-34) pg MCHC 33.3 (32-36) g/dL RDW Std Deviation 49.2 H (36.4-46.3) fL RDW Coeff of Millie 16.0 H (11.5-14.5) % Plt Count 88 L (130-400) K/uL MPV 11.0 H (7.4-10.4) fL Immature Gran % (Auto) 0.8 % Neut % (Auto) 87.0 % Lymph % (Auto) 5.8 % Harrison % (Auto) 6.2 % Eos % (Auto) 0.1 % Baso % (Auto) 0.1 % Neut # (Auto) 16.52 H (1.4-6.5) K/uL Lymph # (Auto) 1.10 L (1.2-3.4) K/uL Harrison # (Auto) 1.18 H (0.11-0.59) K/uL Eos # (Auto) 0.02 (0-0.5) K/uL Baso # (Auto) 0.01 (0-0.2) K/uL Immature Gran # (Auto) 0.16 H (0.00-0.02) K/uL Absolute Nucleated RBC 0.03 H (0-0) K/uL Nucleated RBC % (auto) 0.2 % Toxic Granulation 2+ PT 15.1 H (9.0-12.0) Seconds INR 1.5 H (0.9-1.1) APTT 34.5 H (21.0-31.0) Seconds PTT Ratio 1.2 Sodium 135 L (136-145) mmol/L Potassium 3.9 (3.5-5.1) mmol/L Chloride 102 (98-107) mmol/L Carbon Dioxide 27 (21-32) mmol/L Anion Gap 6.0 (3-11) BUN 8 (7-18) mg/dl Creatinine 0.50 L (0.6-1.2) mg/dl Est Cr Clr Drug Dosing 112.3 ml/min Est GFR ( Amer) 126.3 Est GFR (Non-Af Amer) 109.0 BUN/Creatinine Ratio 16.0 (10-20) Glucose 94 (70-99) mg/dl Calcium 8.7 (8.5-10.1) mg/dl Total Bilirubin 0.5 (0.2-1) mg/dl AST 31 (15-37) U/L ALT 52 (12-78) U/L Alkaline Phosphatase 184 H (45-117) U/L Troponin I < 0.015 (0-0.045) ng/ml Total Protein 6.9 (6.4-8.2) gm/dl Albumin 3.0 L (3.4-5.0) gm/dl Globulin 3.9 (2.5-4.0) gm/dl Albumin/Globulin Ratio 0.8 L (0.9-2) SARS-CoV-2 Ag (Rapid) (Negative) 04/03/20 Range/Units Unknown WBC (4.8-10.8) K/uL RBC (4.2-5.4) M/uL Hgb (12.0-16.0) g/dL Hct (37-47) % MCV (80-100) fL MCH (25-34) pg MCHC (32-36) g/dL RDW Std Deviation (36.4-46.3) fL RDW Coeff of Millie (11.5-14.5) % Plt Count (130-400) K/uL MPV (7.4-10.4) fL Immature Gran % (Auto) % Neut % (Auto) % Lymph % (Auto) % Harrison % (Auto) % Eos % (Auto) % Baso % (Auto) % Neut # (Auto) (1.4-6.5) K/uL Lymph # (Auto) (1.2-3.4) K/uL Harrison # (Auto) (0.11-0.59) K/uL Eos # (Auto) (0-0.5) K/uL Baso # (Auto) (0-0.2) K/uL Immature Gran # (Auto) (0.00-0.02) K/uL Absolute Nucleated RBC (0-0) K/uL Nucleated RBC % (auto) % Toxic Granulation PT (9.0-12.0) Seconds INR (0.9-1.1) APTT (21.0-31.0) Seconds PTT Ratio Sodium (136-145) mmol/L Potassium (3.5-5.1) mmol/L Chloride (98-107) mmol/L Carbon Dioxide (21-32) mmol/L Anion Gap (3-11) BUN (7-18) mg/dl Creatinine (0.6-1.2) mg/dl Est Cr Clr Drug Dosing ml/min Est GFR ( Amer) Est GFR (Non-Af Amer) BUN/Creatinine Ratio (10-20) Glucose (70-99) mg/dl Calcium (8.5-10.1) mg/dl Total Bilirubin (0.2-1) mg/dl AST (15-37) U/L ALT (12-78) U/L Alkaline Phosphatase (45-117) U/L Troponin I (0-0.045) ng/ml Total Protein (6.4-8.2) gm/dl Albumin (3.4-5.0) gm/dl Globulin (2.5-4.0) gm/dl Albumin/Globulin Ratio (0.9-2) SARS-CoV-2 Ag (Rapid) Negative (Negative) Administered Medications Piperacillin Sod/Tazobactam (Sod 3.375 gm/ Dextrose) 115 mls @ 28.75 mls/hr IV Q8H SAMANTA; Protocol Stop: 04/05/20 19:14 Last Admin: 04/03/20 19:59 Dose: 28.8 mls/hr Documented by: [id number] Discontinued Medications Acetaminophen (Acetaminophen 1000 Mg/100 Ml Iv) 1,000 mg IV ONE ONE Stop: 04/03/20 16:21 Last Admin: 04/03/20 16:32 Dose: 1,000 mg Documented by: [id number] Enoxaparin Sodium (Enoxaparin Inj 60 Mg/0.6 Ml Syr) 60 mg SQ ONCE STA Stop: 04/03/20 19:27 Last Admin: 04/03/20 20:38 Dose: 60 mg Documented by: [id number] Heparin Sodium (Porcine) (Heparin Sod (Porcine) 1000 Unit/Ml 10 Ml Vial) Confirm Administered Dose 10,000 units .ROUTE .STK-MED ONE Stop: 04/03/20 17:04 Last Admin: 04/03/20 17:33 Dose: 4,000 units Documented by: [id number] Cosigned by: [id number] Heparin Sodium/Dextrose (Heparin Iv Standard With Bolus) 1 ea IV NOW STA; Protocol Stop: 04/03/20 16:15 Last Admin: 04/03/20 18:08 Dose: 1 ea Documented by: [id number] Heparin Sodium/Dextrose (Heparin Sodium/Dextrose) 25,000 units in 500 mls @ 20 mls/hr IV .Q24H SAMANTA; Protocol Stop: 05/03/20 16:14 Last Titration: 04/03/20 19:06 Dose: 0 units/hr, 0 mls/hr Documented by: [id number] Cosigned by: [id number] Admin: 04/03/20 17:32 Dose: 1,000 units/hr, 20 mls/hr Documented by: [id number] Cosigned by: [id number] Sodium Chloride (Nss 1000ml) 1,000 mls @ 80 mls/hr IV .[id number] [facility] Stop: 04/04/20 07:08 Last Admin: 04/03/20 20:04 Dose: Not Given Documented by: [id number] Warfarin Sodium (Warfarin Sod 10 Mg Tab) 10 mg PO NOW ONE Stop: 04/03/20 18:40 Last Admin: 04/03/20 19:41 Dose: 10 mg Documented by: [id number] Imaging Data Radiologist's Impression: Patient: KATARINA SALGADO Admit Date: 04/03/20 MR#: [id number] Address[address]: [address] Acct ID:[id number] Address2: Date: 1965 [facility] Zip: [place] [address] Age: 54 Location: ED Sex: F Room/Bed: Att Phy: Diagnosis: STAGE IV CA - BLOOD CLOT LT LUNG Rhea Phy: Akbar Francisco Jr, Service Date: 04/03/20 Fam Phy: Rodri Martinez DO Interpreting Phy: Estevan Henson MD Admit Phy: Ordering Phy: Leandro Armstrong DO cc: ~ BILATERAL LOWER EXTREMITY VENOUS DOPPLER CLINICAL HISTORY: Pulmonary emboli. COMPARISON STUDY: Left lower extremity venous Doppler ultrasound April 03, 2015 TECHNIQUE: Sonography of the deep venous system of the bilateral lower extre mities was performed. Compression and augmentation were evaluated. FINDINGS: The bilateral common femoral, superficial femoral and popliteal veins were compressible. Augmentation was normal. Flow was shown within the deep calf vessels. Incidental note is made of a right popliteal cyst that measures 4.9 x 2.7 cm. IMPRESSION: 1. No evidence of deep venous thrombus within the bilateral lower extremities. 2. Right popliteal cyst. ACT 112: Negative or not required by law. Electronically signed by: Estevan Henson M.D. 04/03/2020 5:17 PM Dictated: 04/03/201715 Transcribed: 04/03/201715 Discharge Plan Visit Data Chief Complaint: Respiratory Problems Stated Complaint: STAGE IV CA - BLOOD CLOT LT LUNG ED Provider: Leandro Armstrong Discharge Problem: Pulmonary embolism, Chest pain Patient Disposition: Being Evaluated by Hospitalist Condition: Good Forms Stand Alone Forms: [employer] Prescriptions Prescriptions: No Action cyclobenzaprine 10 mg tablet 10 mg PO TID PRN (Reason: Muscle Spasm) RF: 0 jqrgyhkgni-srdmmfyxaatmv-akhf [Fioricet] 50-300-40 mg capsule 1 cap PO Q4H PRN (Reason: Migraine Headache) RF: 0 liothyronine [Cytomel] 5 mcg tablet 10 mcg PO QAM RF: 0 simvastatin [Zocor] 40 mg tablet 40 mg PO QPM RF: 0 oxycodone-acetaminophen [Percocet] 5-325 mg tablet 1 tab PO Q4H PRN (Reason: Pain) RF: 0 methadone [Dolophine] 10 mg tablet 10 mg PO TID RF: 0 zolpidem [Ambien CR] 12.5 mg tablet,ext release multiphase 12.5 mg PO DAILY PRN (Reason: Insomnia) RF: 0 warfarin 5 mg tablet 5 mg PO DAILY RF: 0 ondansetron HCl 8 mg tablet 4 - 8 mg PO Q8H PRN (Reason: Nausea And Vomiting) RF: 0 diclofenac sodium 1 % gel 2 g topical QID PRN (Reason: Pain) RF: 0 alprazolam 0.5 mg tablet 0.5 mg PO BID PRN (Reason: Anxiety) RF: 0 dexamethasone 4 mg tablet 20 mg PO DIRECTED PRN (Reason: Chemo Treatment) RF: 0 famotidine 20 mg tablet 20 mg PO BID RF: 0 oxycodone 10 mg tablet 10 mg PO DIRECTED PRN (Reason: Pain) RF: 0 pantoprazole 40 mg tablet,delayed release (DR/EC) 40 mg PO BID RF: 0 Advanced Probiotic 625 mg (10 billion cell) capsule 2 cap PO DAILY PRN (Reason: When on Antibiotics) RF: 0 prochlorperazine maleate 10 mg tablet 10 mg PO Q6H PRN (Reason: Nausea And Vomiting) RF: 0 Referrals Referrals: Akbar Francisco Jr, DO [Primary Care Provider] -
[2020-04-03] MEDS ORDERED: HEPARIN SODIUM/DEXTROSE 25,000 UNITS/500 ML BAG IV SCH (16:15)
[2020-04-03] MEDS ORDERED: ACETAMINOPHEN 1000 MG/100 ML IV IV ONE (16:20)
[2020-04-03 16:35] LABS: Hematocrit (blood only) 32.1 % (37-47); Hemoglobin 10.7 g/dL (12.0-16.0); Mean Corpuscular Hemoglobin 28.9 pg (25-34); Mean Corpuscular Hgb Conc 33.3 g/dL (32-36); Mean Corpuscular Volume 86.8 fL (80-100); Nucleated RBC # (auto) 0.03 K/uL (0-0); Nucleated RBC % (auto) 0.2 %; RDW Standard Deviation 49.2 fL (36.4-46.3); White Blood Count 18.99 K/uL (4.8-10.8)
[2020-04-03 16:49] LABS: INR 1.5 (0.9-1.1); Partial Thromboplastin Ratio 1.2; Partial Thromboplastin Time 34.5 Seconds (21.0-31.0); Prothrombin Time 15.1 Seconds (9.0-12.0)
[2020-04-03 16:53] LABS: Alanine Aminotransferase 52 U/L (12-78); Aspartate Aminotransferase 31 U/L (15-37); Blood Urea Nitrogen 8 mg/dl (7-18); Calcium 8.7 mg/dl (8.5-10.1); Carbon Dioxide 27 mmol/L (21-32); Chloride 102 mmol/L (98-107); Creatinine Clr Calc Pharmacy 112.3 ml/min; Est GFR (African American) 126.3; Glucose 94 mg/dl (70-99); Potassium 3.9 mmol/L (3.5-5.1); Sodium 135 mmol/L (136-145)
[2020-04-03 16:58] LABS: Albumin Globulin Ratio 0.8 (0.9-2); Alkaline Phosphatase 184 U/L (45-117); Bilirubin,Total 0.5 mg/dl (0.2-1); Globulin 3.9 gm/dl (2.5-4.0); Total Protein 6.9 gm/dl (6.4-8.2); Troponin I < 0.015 ng/ml (0-0.045)
[2020-04-03 17:00] LABS: Platelet Count 88 K/uL (130-400)
[2020-04-03 17:01] LABS: Basophils # (auto) 0.01 K/uL (0-0.2); Basophils % (auto) 0.1 %; Eosinophils # (auto) 0.02 K/uL (0-0.5); Eosinophils % (auto) 0.1 %; Immature Granulocytes # (auto) 0.16 K/uL (0.00-0.02); Immature Granulocytes % (auto) 0.8 %; Lymphocytes % (auto) 5.8 %; Monocytes # (auto) 1.18 K/uL (0.11-0.59); Monocytes % (auto) 6.2 %; Neutrophils # (auto) 16.52 K/uL (1.4-6.5); Toxic Granulation 2+
[2020-04-03] MEDS ORDERED: HEPARIN SOD (PORCINE) 1000 UNIT/ML 10 ML VIAL ONE (17:03)
--- NOTE | 2020-04-03 17:19 | Ultrasound Report ---
BILATERAL LOWER EXTREMITY VENOUS DOPPLER CLINICAL HISTORY: Pulmonary emboli. COMPARISON STUDY: Left lower extremity venous Doppler ultrasound April 03, 2015 TECHNIQUE: Sonography of the deep venous system of the bilateral lower extremities was performed. Co mpression and augmentation were evaluated. FINDINGS: The bilateral common femoral, superficial femoral and popliteal veins were compressible. A ugmentation was normal. Flow was shown within the deep calf vessels. Incidental note is made of a rig ht popliteal cyst that measures 4.9 x 2.7 cm. IMPRESSION: 1. No evidence of deep venous thrombus within the bilateral lower extremities. 2. Right popliteal cyst. ACT 112: Negative or not required by law. Electronically signed by: Esetvan Henson M.D. 04/03/2020 5:17 PM
[2020-04-03] MEDS ORDERED: WARFARIN SOD 10 MG TAB PO ONE (18:39)
[2020-04-03] MEDS ORDERED: SODIUM CHLORIDE 0.9% 1000ML 1,000 ML IV SCH (18:39)
--- NOTE | 2020-04-03 18:53 | History & Physical Report ---
Date of Service April 03, 2020 Assessment & Plan (1) Pulmonary embolism: Patient is a 54 year old female with PMHx Metastatic breast cancer, Chiari malformation type I, Factor V Leiden deficiency, Hyperlipidemia, that presents with history of 1 day duration of chest pain which started the night of 04/02/20. Pulmonary Embolism -Small segmental PE within the lateral basilar segment of the RLL noted on CT scan -Venous dopplers negative for DVT or thrombus -?Clot formation secondary to infected port, though patient with significant coagulopathy factors -Started on Heparin gtt, transition to therapeutic Lovenox -Patient had been taking home warfarin 5mg QD with INR goal of 1.5-2 -Will increase Warfarin dose today to 10mg and continue starting tomorrow at 7.5mg QD with goal 2-3 -Continue to monitor H&H in AM due to patients thrombocytopenia platelet 88k on admission -Oxygen PRN Concern for Infection of R port -Patient with recent fevers 100.6F despite Tylenol -Noting history of erythema surrounding port -WBC elevated at 19k -Will start empiric treatment with Vanc and Zosyn IV -Blood cultures drawn earlier in the day at cancer care clinic, pending. Metastatic Breast Cx -Mass redomonstrated in the L upper lobe with slight in size from 4.1 x 3.1cm to 3.9 x 2.6 cm -Last chemo 03/26/20 with Neulasta 03/25/20 -Palliative consulted for assistance in pain management -Current pain regiment with Methadone 10mg TID and IV Tylenol 1000mg TID PRN -Zofran and Compazine Factor V Deficiency/Antiphospholipid antibody syndrome/ Lupus anticoagulant disorder -Chronic anticoagulation with Warfarin, will increase with INR 2-3 -Continue Lovenox as above. GERD -Continue home Famotidine -Continue home Pantoprazole Anxiety -Continue home Xanax 0.5 mg BID PRN Hypothyroidism -Continue home Liothyronine 10mcg QD Dispo: PCU FEN: Regular diet DVT: Therapeutic Lovenox, Warfarin Code: DNR/DNI (2) Metastatic breast cancer: (3) Factor V deficiency: (4) Hypothyroidism: (5) Hyperlipemia: (6) Infection of venous access port: History of Present Illness Chief Complaint: Chest pain Primary Care Provider: Akbar Francisco Jr, DO Patient is a 54 year old female with PMHx Metastatic breast cancer, Chiari malformation type I, Factor V Leiden deficiency, Hyperlipidemia, that presents with history of 1 day duration of chest pain which started the night of 04/02/20. Patient notes that she was laying in bed at home the night prior whenever she started having 10/10 sharp chest pain that primarily occurred with deep inspiration. She also noted of having fevers of 100.6F which would not resolve with Tylenol use. She had presented to the cancer center for her concerns and it was felt that her fever may be secondary to her recent chemotherapy treatment (8 days ago) and Neulasta treatment (7 days ago). They were concerned though of patients sudden onset of pleuritic like chest pain, however, and she was sent for CT scan which revealed a pulmonary embolus in her lateral basilar segment of the right lower lobe. Of note, patient also states that for the past 1 day she has noted worsening discomfort with her R sided port (placed 01/17-) and that the port itself had been erythematous at one point. She also notes a small scabbed lesion cephalad to the port noting that it had appeared secondary to a "hair stabbing me." She states that she has not missed any of her Warfarin doses and that she has been primarily aiming to keep her INR between 1.5-2.0. She has been taking Warfarin 5mg daily. Currently patient notes that her primary issue is regarding her L sided stabbing chest pain that she notes is a 5/10 underlying her L breast when she takes a deep breath. She states that the breast itself "always appear red and tender," though not more-so today than other days. She does state that the nipple is typically more of a yellow coloration, however, the past day has become more red. Med Hx: Metastatic breast Cx, Factor V Leiden deficiency, Lupus anticoagulant disorder, antiphospholipid antibody syndrome, HLD, hypothyroidism Fam Hx: Mother Breast cx, Grandmother Breast cx Social: History smoking 1/2-1PPD quit Dec 26, 2019, 1-2 alcoholic beverages yearly, no illicit drug use. Allergies Allergy/AdvReac Type Severity Reaction Status Date / Time hydrocodone [From Lortab] Allergy Severe Headache Verified 04/03/20 16:37 adhesive Allergy Unknown Rash Verified 04/03/20 16:37 methocarbamol [From Robaxin] Allergy Unknown Unknown Verified 04/03/20 16:37 povidone Allergy Unknown Blisters Verified 04/03/20 16:42 povidone-iodine Allergy Unknown Blisters Verified 04/03/20 16:42 [From Betadine] propoxyphene [From Darvon] Allergy Unknown Headache Verified 04/03/20 16:37 soap [From Betadine] Allergy Unknown Blisters Verified 04/03/20 16:42 codeine AdvReac Intermediate Severe Verified 04/03/20 16:37 headache, nausea Home Medications Medication Instructions Recorded Confirmed Type touxbolwjr-uldoouadmeahe-jnzpgkyr 1 cap PO Q4H PRN 01/13/20 04/03/20 History 50 mg-300 mg-40 mg capsule cyclobenzaprine 10 mg tablet 10 mg PO TID PRN 01/13/20 04/03/20 History diclofenac sodium 1 % topical gel 2 g TOPICAL QID PRN 01/13/20 04/03/20 History liothyronine 5 mcg tablet 10 mcg PO QAM tab 01/13/20 04/03/20 History methadone 10 mg tablet 10 mg PO TID tab 01/13/20 04/03/20 History ondansetron HCl 8 mg tablet 4 - 8 mg PO Q8H PRN 01/13/20 04/03/20 History oxycodone-acetaminophen 5 mg-325 1 tab PO Q4H PRN 01/13/20 04/03/20 History mg tablet simvastatin 40 mg tablet 40 mg PO QPM 01/13/20 04/03/20 History warfarin 5 mg tablet 5 mg PO DAILY tab 01/13/20 04/03/20 History zolpidem 12.5 mg tablet,extended 12.5 mg PO DAILY PRN tab 01/13/20 04/03/20 History release,multiphase alprazolam 0.5 mg PO BID PRN 02/04/20 04/03/20 History dexamethasone 20 mg PO DIRECTED PRN 02/04/20 04/03/20 History L.acidop,teo,lac,rha-B.lac,xena 2 cap PO DAILY PRN 04/03/20 04/03/20 History [Advanced Probiotic] famotidine 20 mg PO BID 04/03/20 04/03/20 History oxycodone 10 mg PO DIRECTED PRN 04/03/20 04/03/20 History pantoprazole 40 mg PO BID 04/03/20 04/03/20 History prochlorperazine maleate 10 mg PO Q6H PRN 04/03/20 04/03/20 History Past Med/Surg History Medical History (Updated 04/03/20 @ 21:08 by Jorge L Tidwell DO) Antiphospholipid antibody syndrome Factor V Leiden Fibromyalgia History of blood clots hx of small vessel eye blood clots per remote [facility] records, hx antiphospholipid antibody syndrome/lupus anticoagulant/factor V- on coumadin History of Chiari malformation s/p surgery/repair (2014), no acute findings on 01/13/20 brain MRI History of HPV infection Hyperlipidemia Hypothyroidism IBD (inflammatory bowel disease) Jaw pain, non-TMJ Lupus anticoagulant syndrome Lymphedema Metastatic breast cancer recent diagnosis; mets to lungs, lymph nodes Migraines Rheumatoid arthritis Surgical History CSF leak post craniotomy; surgically repaired 2014 History of breast biopsy History of cholecystectomy History of colonoscopy History of craniotomy suboccipital craniectomy, C1 laminectomy, and duraplasty to treat a type 1 Chiari malformation 2014 [place] History of D&C x2 History of excision of mass vulvar History of hysterectomy History of lumpectomy x 6 History of surgery on arm Left Brachial 1992 History of tooth extraction PONV (postoperative nausea and vomiting) Slow to wake up after anesthesia Surgical history of tubal ligation Family History Mother Breast cancer Grandmother Heart disease Breast cancer Other No family history of adverse response to anesthesia Social History Smoking Status: Former smoker packs per day: 1; Years Smoked: 35; Second Hand Exposure: No; Do You Dip or Chew Tobacco: No; Tobacco Cessation Education Requested by Patient: No Hx Alcohol Use: No Hx Substance Use: No Preferred Language: Bur[place]ian Communication Ability: Effective Client Specialist Required: No Beliefs That Will Affect Care: None marital status: Current Living Situation: Family current occupation: Homemaker Other Information That Helps Us Care for You: Yes Feels Safe at Home: Yes Safety Concerns: Feels Safe At This Time Assistive Devices: None Review of Systems Constitutional: + fever and + fatigue; no chills Eyes: no worsening vision Ear, Nose, Mouth, Throat: no ear pain, no dizziness and no sore throat Respiratory: + dyspnea, + dyspnea on exertion and + pain on inspiration; no cough Cardiovascular: + chest pain (L sided, primarily sharp ), + dyspnea and + dyspnea on exertion Gastrointestinal: no abdominal pain, no nausea, no vomiting, no constipation and no diarrhea/loose stools Genitourinary: no dysuria Integumentary: + new lesions (scabbing above R port ), + breast pain (L ) and + breast swelling (L); no nipple discharge Physical Exam Constitutional: well developed, well nourished and cooperative; no acute distress and not in distress Eyes: PERRL, conjunctivae normal, anicteric sclerae Respiratory: normal respiratory effort and able to speak in complete sentences; no respiratory distress, no labored breathing, no cough and not tachypneic Auscultation: lungs clear to auscultation bilaterally and + diminished lung sounds; no crackles, no rales and no rhonchi Cardiovascular: Rate/Rhythm: regular rate and regular rhythm Heart Sounds: normal S1 and normal S2 Vessels: no JVD Extremities: no calf tenderness Chest (Breasts): Chest: + vascular access device or port (R port ) Additional Comments: -L breast with erythema and dimpling of the underside. -0.5cm scabbed lesion with minimal erythema roughly 3 inches superior to the port Gastrointestinal (Abdomen): Inspection/Auscultation: abdomen normal to inspection and normal bowel sounds; abdomen not distended Percussion/Palpation: abdomen soft; abdomen nontender Musculoskeletal: Head/Neck/Chest: + head abnormal to inspection (prior surgical scar on posterior neck well healed ) and normocephalic Neurologic: PERRL, EOMI, accommodation nl, no face palsy, no dysarthria Psychiatric: A+Ox3, euthymic affect Results & Data Results & Data ([facility]) Vital Signs (Past 12 Hours) Vital Signs Temp Pulse Pulse Resp BP BP Pulse Ox 04/03/20 17:26 92 H 18 88/51 L 97 04/03/20 15:42 97 04/03/20 15:28 36.8 C 115 H 18 132/82 97 Code Status & VTE Plan VTE Prophylaxis Plan VTE Prophylaxis will be ordered: Yes Supervising Physician Co-Signing Physician Notes I personally saw and examined the patient. I verified all bernardo points and agree with [place] resident physician Dr Jorge L Tidwell with the following exceptions and/or additions: 54 year old female presents to the ER after outpatient testing showed a small segmental PE. Also notes fevers, chills for the last 2 days in addition to pain whenever her port is accessed. Additional pleuritic chest pain on left side, worse over the last 24 hours. O/E 5mm circular erythema with crust approximately 5cm above left sided port, Left breast - mild areas of redness consistent with poor lymphatic drainage and mild inflammatory mastitis - do not suspect A/P Right subsegmental PE - switch heparin to Lovenox to avoid multiple peripheral IV lines. Increase aim to 2.5 for warfarin (previously aim 1.5 therefore she did not fail this). Given other hypercoagulable conditions warfarin remains her best option for anticoagulation. I do not suspect she is having any symptoms from the PE. Left pleuritic chest pain - suspect this is secondary to her underlying lung cancer. Consult palliative by patient and oncology request for pain management (bone pain after neulasta injections). Leukocytosis - possibly secondary to Neulasta although concerning pain with her port in addition to fever and chills for a few day. Blood cultures already taken from port and peripheral as outpatient. Stop using port and start Vancomycin and Zosyn pending results of this. Start on prophylaxis vancomycin 125mg PO once daily while on this given history of c. diff. Resident Activity Tracking Resident Involvement: Resident Care Provided Care Provided: Adult Hospital Medicine (1) Pulmonary embolism Acute cor pulmonale presence: unspecified Chronicity: acute Pulmonary embolism type: unspecified Qualified Code(s): I26.99 - Other pulmonary embolism without acute cor pulmonale
[2020-04-03] MEDS ORDERED: PIPERACILL/TAZOBAC CONSULT ACTIVE PRN (19:10)
[2020-04-03] MEDS ORDERED: VANCOMYCIN CONSULT ACTIVE PRN (19:10)
[2020-04-03] MEDS ORDERED: VANCOMYCIN HCL 1,250 MG in SODIUM CHLORIDE 0.9% 500 ML IV ONE (19:10)
[2020-04-03] MEDS ORDERED: ENOXAPARIN 1 MG/KG SQ SCH (19:15)
[2020-04-03] MEDS ORDERED: SODIUM CHLORIDE 0.9% 1000ML 500 ML IV ONE (19:24)
[2020-04-03] MEDS ORDERED: ENOXAPARIN INJ 60 MG/0.6 ML SYR SQ STA (19:26)
[2020-04-03] MEDS ORDERED: ACETAMINOPHEN 1000 MG/100 ML IV IV PRN (19:34)
[2020-04-03] MEDS: PIPERACILLIN/TAZOBACTAM 3.375 GM in DEXTROSE 5% 100 ML IV SCH (19:59)
[2020-04-03] MEDS ORDERED: METHADONE HCL 5 MG TAB PO STA (21:08)
[2020-04-03] MEDS ORDERED: DOCUSATE SODIUM 100 MG CAP PO PRN (22:12)
[2020-04-03] MEDS: METHADONE HCL 10 MG TAB PO SCH (23:21)
[2020-04-03] MEDS: PANTOprazole 40 MG TAB PO SCH (23:22)
[2020-04-03] MEDS: FAMOTIDINE 20 MG TAB PO SCH (23:22)
[2020-04-03] MEDS: ALPRAZolam 0.5 MG TABLET PO PRN (23:46)
[2020-04-03] MEDS ORDERED: VANCOMYCIN HCL 125 MG/2.5ML SOLN PO STA (23:53)
[2020-04-03] MEDS ORDERED: RASPBERRY SYRUP 5 ML UDP PO STA (23:53)
[2020-04-04] MEDS: oxyCODONE HCL IR 5 MG TAB (IMMEDIATE RELEASE) PO PRN ×3 (02:30→10:23)
[2020-04-04] MEDS: PIPERACILLIN/TAZOBACTAM 3.375 GM in DEXTROSE 5% 100 ML IV SCH ×3 (02:32→20:04)
--- NOTE | 2020-04-04 05:46 | Communication Note ---
Date of Service: April 04, 2020 Patient had an episode of fever, and increasing pain throughout the night. This is despite her home regimen analgesic regimen. I am concerned to provide more opiates given vital signs and current analgesic regimen and due to her thrombocytopenia Toradol or other NSAIDs would be contraindicated. She received a dose of IV Tylenol 1 g at 2330 on 04/03, given that she had a fever and increasing pain I feel the best option would be to provide another dose of IV Tylenol now approximately 6 hours after prior dose. Please ensure that she does not receive more than 1 more 1 g dose of IV Tylenol today for a net total of 3 g of IV Tylenol today. -Provide IV Tylenol now -No more than 1 more gram of IV Tylenol today Resident Activity Tracking Resident Involvement: Resident Care Provided Care Provided: Adult [place] [facility]
[2020-04-04] MEDS ORDERED: ACETAMINOPHEN 1000 MG/100 ML IV IV PRN (05:47)
[2020-04-04] MEDS ORDERED: RASPBERRY SYRUP 5 ML UDP PO SCH (06:00)
[2020-04-04 06:32] LABS: Hematocrit (blood only) 30.2 % (37-47); Hemoglobin 10.2 g/dL (12.0-16.0); Mean Corpuscular Hgb Conc 33.8 g/dL (32-36); Mean Corpuscular Volume 85.8 fL (80-100); RDW Coefficient of Variation 15.9 % (11.5-14.5); Red Blood Count 3.52 M/uL (4.2-5.4)
[2020-04-04 06:34] LABS: Mean Platelet Volume 10.2 fL (7.4-10.4); Platelet Count 68 K/uL (130-400)
[2020-04-04 06:42] LABS: INR 1.6 (0.9-1.1); Prothrombin Time 16.5 Seconds (9.0-12.0)
[2020-04-04 06:55] LABS: Basophils # (auto) 0.02 K/uL (0-0.2); Basophils % (auto) 0.1 %; Hypogranular Neutrophils 1+; Immature Granulocytes % (auto) 0.7 %; Lymphocytes # (auto) 1.04 K/uL (1.2-3.4); Lymphocytes % (auto) 6.9 %; Monocytes # (auto) 0.96 K/uL (0.11-0.59); Monocytes % (auto) 6.4 %; Neutrophils # (auto) 12.88 K/uL (1.4-6.5); Neutrophils % (auto) 85.9 %
[2020-04-04 07:09] LABS: BUN Creatinine Ratio 16.3 (10-20); Calcium 8.7 mg/dl (8.5-10.1); Creatinine Clr Calc Pharmacy 103.9 ml/min; Est GFR (African American) 123.1; Est GFR (Non-African American) 106.2; Potassium 3.7 mmol/L (3.5-5.1)
[2020-04-04] MEDS: ONDANSETRON INJ 2 MG/ML 2 ML VIAL IV PRN ×2 (07:32→15:04)
[2020-04-04] MEDS: PROCHLORPERAZINE MALEATE 10 MG TAB PO PRN ×2 (08:03→20:36)
[2020-04-04] MEDS: METHADONE HCL 10 MG TAB PO SCH ×3 (08:04→20:24)
[2020-04-04] MEDS: VANCOMYCIN HCL 1,250 MG in SODIUM CHLORIDE 0.9% 250 ML IV SCH ×2 (08:06→15:32)
[2020-04-04] MEDS: FAMOTIDINE 20 MG TAB PO SCH ×2 (08:06→20:25)
[2020-04-04] MEDS: LIOTHYRONINE SODIUM 5 MCG TAB PO SCH (08:07)
[2020-04-04] MEDS: PANTOprazole 40 MG TAB PO SCH ×2 (08:08→20:24)
[2020-04-04] MEDS: ADVANCED PROBIOTIC 1250 MG CAPSULE PO SCH (08:08)
--- NOTE | 2020-04-04 09:53 | Pharmacy Report ---
Pharmacy Abx Dose Short Note - Date of Service April 04, 2020 - Assessment & Plan Assessment 54 year old F receiving vancomycin/Zosyn for treatment of possible port infection currently empiric Day # 2 of antimicrobial therapy. Plan Vancomycin * Patient meets criteria for vancomycin AUC dosing nomogram * AUC/SHYAM is the preferred PK/PD target for vancomycin * Target AUC/SHYAM = 400-600 * AUC guided dosing is effective and associated with decreased risk of nephrotoxicity Zosyn 3.375 gm IV x 1 then 3.375 gm IV q8 hours extended infusion Pharmacy will continue to follow and will adjust dose/frequency as necessary. Thank you.
[2020-04-04] MEDS: VANCOMYCIN HCL 125 MG/2.5ML SOLN PO SCH (09:54)
[2020-04-04] MEDS: RASPBERRY SYRUP 5 ML UDP PO SCH (09:54)
[2020-04-04] MEDS: ENOXAPARIN INJ 60 MG/0.6 ML SYR SQ SCH ×2 (09:54→20:24)
[2020-04-04] MEDS ORDERED: MoRPHine SULFATE 2 MG/ML CARP IV PRN (11:50)
--- NOTE | 2020-04-04 11:53 | Hospitalist Progress Note ---
Date of Service April 04, 2020 Assessment & Plan (1) Pulmonary embolism: Patient is a 54 year old female with PMHx Metastatic breast cancer, Chiari malformation type I, Factor V Leiden deficiency, Hyperlipidemia, that presents with chest pain and dyspnea on exertion which started the night of 04/02/20. Pulmonary Embolism -Small segmental PE within the lateral basilar segment of the RLL noted on CT scan -Venous dopplers negative for DVT or thrombus -Patient with lupus anticoagulant and factor V leiden as risk factors as well as current metastatic cancer so clot could have come from numerous places. Certainly an infected or thrombosed port is possible -Therapeutic lovenox -Patient had been taking home warfarin 5mg QD with INR goal of 1.5-2 prior to admission now increased to 7.5 mg daily with goal INR between 2 and 3 -Will continue to monitor CBC given patient's elevated white count, anemia and thrombocytopenia -Patient has not needed oxygen and has no respiratory symptoms lying in bed at present. Concern for Infection of R port -Erythema and pain around port site, patient with fevers at home and in hospital -WBC elevated at 19k -Will start empiric treatment with Vanc and Zosyn IV -May be able to salvage port, but if patient continues having fevers particularly >72 hours after abx or if blood cultures come back for particularly virulent organism may need port replacement -Will continue empiric abx for now and adjust based on speciation Metastatic Breast Cx -Mass redemonstrated in the L upper lobe with slight in size from 4.1 x 3.1cm to 3.9 x 2.6 cm -Last chemo 03/26/20 with Neulasta 03/25/20 -Palliative consulted for assistance in pain management -Current pain regiment with Methadone 10mg TID and IV Tylenol 1000mg TID PRN - Added oxycodone 10 mg TID prn which is her home dose and morphine 2 mg IV for breakthrough severe pain -Zofran and Compazine for nausea Factor V Deficiency/Antiphospholipid antibody syndrome/ Lupus anticoagulant disorder -Chronic anticoagulation with Warfarin, will increase with INR 2-3 -Continue Lovenox as above. GERD -Continue home Famotidine -Continue home Pantoprazole Anxiety -Continue home Xanax 0.5 mg BID PRN Hypothyroidism -Continue home Liothyronine 10mcg QD Dispo: PCU FEN: Regular diet DVT: Therapeutic Lovenox, Warfarin Code: DNR/DNI (2) Metastatic breast cancer: (3) Factor V deficiency: (4) Hypothyroidism: (5) Hyperlipemia: (6) Infection of venous access port: Admission and Anticipated Discharge Date Admission Date: April 03, 2020 Supervising Physician Co-Signing Physician Notes Attending attestation Pt seen and examined in concert with Dr. Olivo. In agreement with the documented findings as noted in the resident documentation with any exceptions or additions as noted here. 54 y/o female h/o metastatic breast cancer p/w chest pain and dyspnea Reports considerable improvement in presenting complaint following uptitration of pain regimen. On examination, S1/S2 nl RRR no MCG. CTAB. Mild erythema around port site. Metastatic breast cancer with diffuse pain - oncology consultation appreciated - continue pain regimen as present, can escalate (max methadone dosing previously was 20mg TID). Symptom control for n/v Factor V deficiency/APL ab syndrome w/ PE - has been subtherapeutic on warfarin previously. Continue lovenox, aim for goal of 2-3 Else see resident documentation as noted. Subjective Luly is doing okay this morning, she had a lot of pain last night she feels was not properly addressed. She has been complaining of primarily right sided chest wall pain. She denies any shortness of breath, though has continued to have feelings of fevers and chills. She appears comfortable in bed and is easily able to carry on conversation. Review of Systems Constitutional: + fever and + fatigue; no chills Respiratory: + pain on inspiration Cardiovascular: + chest pain (L sided, primarily sharp ) Integumentary: + new lesions (scabbing above R port ), + breast pain (L ) and + breast swelling (L); no nipple discharge pain over port on right side of chest Physical Exam Constitutional: well developed, well nourished, cooperative and comfortable; no acute distress Eyes: PERRL, conjunctivae normal, anicteric sclerae Respiratory: normal respiratory effort, lungs clear to auscultation Cardiovascular: Rate/Rhythm: regular rate and regular rhythm Heart Sounds: no click, no gallop, no murmur and no cardiac rub Vessels: normal peripheral pulses Gastrointestinal (Abdomen): normal bowel sounds, soft, nontender, no hepatosplenomegaly Skin: Red inflamed skin of the breast which she says it has been like. Some erythema around port site as well with pain to palpation in that area. Results & Data Results & Data ([facility]) Vital Signs (Past 12 Hours) Vital Signs Temp Pulse Pulse Resp BP Pulse Ox 04/04/20 09:26 105 H 04/04/20 07:10 38.8 C H 109 H 16 105/69 94 04/04/20 05:00 37.8 C H 04/04/20 04:22 36.8 C 104 H 18 117/74 98 04/04/20 00:28 101 H Resident Activity Tracking Resident Involvement: Resident Care Provided Care Provided: Adult Hospital Medicine (1) Pulmonary embolism Acute cor pulmonale presence: unspecified Chronicity: acute Pulmonary embolism type: unspecified Qualified Code(s): I26.99 - Other pulmonary embolism without acute cor pulmonale
--- NOTE | 2020-04-04 11:55 | Electrocardiogram Report ---
Test Reason : Blood Pressure : / mmHG Vent. Rate : 106 BPM Atrial Rate : 106 BPM P-R Int : 142 ms QRS Dur : 078 ms QT Int : 320 ms P-R-T Axes : 068 048 020 degrees QTc Int : 425 ms Sinus tachycardia Possible Left atrial enlargement Borderline ECG When compared with ECG of 04-FEB-2020 13:00, No significant change was found Confirmed by Leandro Oreilly ([id number]) on 04/04/2020 11:55:21 AM Referred By: Clare Marsh Confirmed By:Leandro Oreilly
--- NOTE | 2020-04-04 13:33 | Billing Data ---
Date of Service April 03, 2020 Coding Level of Care Code 20676 Initial Inpt Care Lvl 3
[2020-04-04] MEDS: BUTALBITAL/ACETAMIN/CAFFEINE TAB PO PRN (14:16)
[2020-04-04] MEDS: MoRPHine SULFATE 4 MG/ML 1 ML CARP\\VIAL IV PRN ×3 (15:04→20:03)
[2020-04-04] MEDS ORDERED: WARFARIN SOD 7.5 MG TAB PO SCH (16:00)
--- NOTE | 2020-04-04 16:12 | Palliative Care Consultation ---
Date of Consultation April 04, 2020 Assessment & Plan (1) Chest pain: Mixed. History is consistent with neuropathic pain. She is on methadone and had been trying to taper off. NMDA receptor activity particularly useful for neuropathic pain. Would continue methadone. With long half life, methadone serves as long acting medication for maintenance. She has been taking oxycodone prn with little relief. She did have an order today for morphine. Will increase morphine to equianalgesic dose for prn use as oxycodone has not been effective for her. Would also add gabapentin at hs with goal to titrate to therapeutic dose. She has not been sleeping well due to pain. She has not had problems with lethargy despite multiple pain medications. Given allodynia in left axilla, will try topical lidocaine for pain relief. Thank you for allowing us to participate in her care. We will continue to follow. Chest pain type: unspecified Qualified Code(s): R07.9 - Chest pain, unspecified (2) Metastatic breast cancer: (3) Factor V deficiency: (4) Pulmonary embolism: Acute cor pulmonale presence: unspecified Chronicity: acute Pulmonary embolism type: unspecified Qualified Code(s): I26.99 - Other pulmonary embolism without acute cor pulmonale (5) Rheumatoid arthritis: (6) Infection of venous access port: (7) Palliative care encounter: She had a discussion with her last night and has decided that she wants to be DNR. She is tearful when discussing this but feels that this will lessen the burden for her family to make the decision or see her go through resuscitation efforts. History of Present Illness Reason for Consultation: pain management Requesting Physician: Dr. Tidwell Attending Physician: Fabricio Fernandez MD History of Present Illness 54 yo lady diagnosed with triple negative breast cancer metastatic to axillary nodes and lung in November 2019. She was admitted with left chest pain. She has h/o Factor V Leiden deficiency and has been on warfarin. She was found to have small pulmonary embolus. She has had ongoing problems with pain management related to multiple sources of mixed pain and has been on several medications without sufficient relief. We have been consulted to assist with pain management. She describes her most concerning pain as a sharp, stabbing pain in her left upper chest that shoots to her axilla, this is intermittent and does no t have any particular triggers. She also has pain in left axilla with significant tenderness to touch. She has noted significant achy bone pain which is diffuse and occurs after her chemotherapy treatments of gemcitabine and paclitaxel. She does also have a h/o rheumatoid arthritis and had been on a biologic agent prior to starting chemotherapy. Allergies Allergy/AdvReac Type Severity Reaction Status Date / Time hydrocodone [From Lortab] Allergy Severe Headache Verified 04/03/20 16:37 adhesive Allergy Unknown Rash Verified 04/03/20 16:37 methocarbamol [From Robaxin] Allergy Unknown Unknown Verified 04/03/20 16:37 povidone Allergy Unknown Blisters Verified 04/03/20 16:42 povidone-iodine Allergy Unknown Blisters Verified 04/03/20 16:42 [From Betadine] propoxyphene [From Darvon] Allergy Unknown Headache Verified 04/03/20 16:37 soap [From Betadine] Allergy Unknown Blisters Verified 04/03/20 16:42 codeine AdvReac Intermediate Severe Verified 04/03/20 16:37 headache, nausea Home Medications Medication Instructions Recorded Confirmed Type ouvovdrwrx-wlryjprdjpinu-inagwtxa 1 cap PO Q4H PRN 01/13/20 04/03/20 History 50 mg-300 mg-40 mg capsule cyclobenzaprine 10 mg tablet 10 mg PO TID PRN 01/13/20 04/03/20 History diclofenac sodium 1 % topical gel 2 g TOPICAL QID PRN 01/13/20 04/03/20 History liothyronine 5 mcg tablet 10 mcg PO QAM tab 01/13/20 04/03/20 History methadone 10 mg tablet 10 mg PO TID tab 01/13/20 04/03/20 History ondansetron HCl 8 mg tablet 4 - 8 mg PO Q8H PRN 01/13/20 04/03/20 History oxycodone-acetaminophen 5 mg-325 1 tab PO Q4H PRN 01/13/20 04/03/20 History mg tablet simvastatin 40 mg tablet 40 mg PO QPM 01/13/20 04/03/20 History warfarin 5 mg tablet 5 mg PO DAILY tab 01/13/20 04/03/20 History zolpidem 12.5 mg tablet,extended 12.5 mg PO DAILY PRN tab 01/13/20 04/03/20 History release,multiphase alprazolam 0.5 mg PO BID PRN 02/04/20 04/03/20 History dexamethasone 20 mg PO DIRECTED PRN 02/04/20 04/03/20 History L.acidop,teo,lac,rha-B.lac,xena 2 cap PO DAILY PRN 04/03/20 04/03/20 History [Advanced Probiotic] famotidine 20 mg PO BID 04/03/20 04/03/20 History oxycodone 10 mg PO DIRECTED PRN 04/03/20 04/03/20 History pantoprazole 40 mg PO BID 04/03/20 04/03/20 History prochlorperazine maleate 10 mg PO Q6H PRN 04/03/20 04/03/20 History Patient History Medical History (Updated 04/04/20 @ 16:31 by Luly Peralta MD) Antiphospholipid antibody syndrome Factor V Leiden Fibromyalgia History of blood clots hx of small vessel eye blood clots per remote [facility] records, hx antiphospholipid antibody syndrome/lupus anticoagulant/factor V- on coumadin History of Chiari malformation s/p surgery/repair (2014), no acute findings on 01/13/20 brain MRI History of HPV infection Hyperlipidemia Hypothyroidism IBD (inflammatory bowel disease) Jaw pain, non-TMJ Lupus anticoagulant syndrome Lymphedema Metastatic breast cancer recent diagnosis; mets to lungs, lymph nodes Migraines Rheumatoid arthritis Surgical History CSF leak post craniotomy; surgically repaired 2014 History of breast biopsy History of cholecystectomy History of colonoscopy History of craniotomy suboccipital craniectomy, C1 laminectomy, and duraplasty to treat a type 1 Chiari malformation 2014 [place] History of D&C x2 History of excision of mass vulvar History of hysterectomy History of lumpectomy x 6 History of surgery on arm Left Brachial 1992 History of tooth extraction PONV (postoperative nausea and vomiting) Slow to wake up after anesthesia Surgical history of tubal ligation Family History Mother Breast cancer Grandmother Heart disease Breast cancer Other No family history of adverse response to anesthesia Social History Smoking Status: Former smoker packs per day: 1; Years Smoked: 35; Second Hand Exposure: No; Do You Dip or Chew Tobacco: No; Tobacco Cessation Education Requested by Patient: No Hx Alcohol Use: No Hx Substance Use: No Preferred Language: Frisian Communication Ability: Effective Machine Trimmer Required: No Beliefs That Will Affect Care: None marital status: Current Living Situation: Family current occupation: Homemaker Other Information That Helps Us Care for You: Yes Feels Safe at Home: Yes Safety Concerns: Feels Safe At This Time Assistive Devices: None Review of Systems Review of Systems: [place] Symptom Assessment Scale Pain 3/3 Dyspnea 2/3 Nausea 1/3 Anorexia 1/3 Depression 0/3 Anxiety 0/3 Constipation 0/3 Palliative Performance Score 60% Physical Exam Constitutional: + ill appearing; no acute distress Respiratory: normal respiratory effort; no labored breathing Cardiovascular: Extremities: no edema Gastrointestinal (Abdomen): Inspection/Auscultation: abdomen not distended Skin: erythema left breast and axilla Neurologic: moves all extremities allodynia left lateral chest Results & Data ([facility]) Vital Signs (Past 12 Hours) Vital Signs Temp Pulse Pulse Pulse Resp BP Pulse Ox 04/04/20 15:14 100.0 F H 93 H 18 91/59 L 95 04/04/20 12:00 97.5 F L 76 18 109/72 100 04/04/20 09:26 105 H 04/04/20 07:10 101.8 F H 109 H 16 105/69 94 04/04/20 05:00 100.0 F H 04/04/20 04:22 98.2 F 104 H 18 117/74 98 PG Care Time/CCT Total # of Minutes Spent Total Time Spent with Patient: Total time spent is greater than 50% in coordination of care (as documented) at patient's floor/unit and/or counseling patient: total time spent 70 minutes with more than 70% of time spent on discussing symptom management, goals of care. Coding Level of Care Code 57095 Inpt Consult Level 4 Diagnoses Chest pain R07.9 Chest pain type: unspecified Metastatic breast cancer C50.919 Factor V deficiency D68.2 Pulmonary embolism I26.99 Acute cor pulmonale presence: unspecified Chronicity: acute Pulmonary embolism type: unspecified Rheumatoid arthritis M06.9 Infection of venous access port T80.219A Palliative care encounter Z51.5
--- NOTE | 2020-04-04 16:46 | Consultation Report ---
DATE OF CONSULTATION: 04/04/2020 MEDICAL ONCOLOGY CONSULTATION REASON FOR CONSULTATION: Pulmonary embolism in a pleasant 54-year-old female patient who now suffers from metastatic breast cancer. HISTORY OF PRESENT ILLNESS: Luly Álvarez is a very pleasant unfortunate 54-year-old female patient with a triple-negative metastatic breast cancer who is currently under my care receiving salvage paclitaxel and gemcitabine every 21 days, which started in late 12/2019. The patient had subsequently developed chest pain on the night of 04/02/2020. She described the pain as 10/10, sharp, stabbing, which occurred mostly on deep inspiration. The patient was also noted to have low-grade fevers, which did not resolve with Tylenol use. Keep in mind she was receiving gemcitabine, which can also cause low-grade fever. That said, her chest pain became more pleuritic-like and she was subsequently ordered a CT scan, which revealed a pulmonary embolus in the lateral basilar segment of the right lower lobe. She also reported pain around her port site and subsequently developed some redness around the port. This lady suffers from a factor V Leiden mutation as well as antiphospholipid syndrome and lupus anticoagulant positive. She had been maintained on warfarin, managed by her primary care physician to maintain an INR of 1.5 to 2. I do not know specifics about her thrombotic history as she was actually previously managed by Dr. Pedro. That said, she was admitted and placed on intravenous heparin with transition to Lovenox or perhaps warfarin. We will discuss further with the hospitalist service. There is also a concern for cellulitis around her port and subsequently started on vancomycin and Zosyn intravenously. Unfortunately, this lady also suffers from metastatic triple-negative breast cancer, had recently started combination gemcitabine and paclitaxel. Primary service is requesting assistance with anticoagulation moving forward in Ms. Álvarez's case. PAST MEDICAL HISTORY: Significant for factor V Leiden mutation, lupus anticoagulant positive and antiphospholipid syndrome. She suffers from triple-negative metastatic breast cancer, fibromyalgia, history of TIA, and thrombocytopenia. PAST SURGICAL HISTORY: Includes axillary cyst resection, cholecystectomy and bilateral tubal ligation. CURRENT MEDICATIONS: Include butalbital 1 capsule p.o. q.4 hours for migraine headache, cyclobenzaprine 10 mg p.o. t.i.d., topical diclofenac 2 grams topical q.i.d. p.r.n., liothyronine 10 mcg p.o. daily, methadone 10 mg p.o. t.i.d., Zofran 4-8 mg p.o. q.8 hours p.r.n., oxycodone/acetaminophen 1 tablet p.o. q.4 hours p.r.n., simvastatin 40 mg p.o. daily, warfarin 5 mg p.o. daily, Ambien CR 12.5 mg p.o. at bedtime, alprazolam 0.5 mg p.o. b.i.d. p.r.n., dexamethasone 20 mg as directed p.r.n., famotidine 20 mg p.o. b.i.d., oxycodone 10 mg p.o. as directed p.r.n., Protonix 40 mg p.o. b.i.d., Compazine 10 mg p.o. q.6 hours p.r.n. for nausea. ALLERGIES: HYDROCODONE, ADHESIVE, SOMA, POVIDONE IODINE, DARVOCET, SOAP AND CODEINE. FAMILY HISTORY: Mother positive for breast cancer, also her maternal grandmother positive for breast cancer. SOCIAL HISTORY: The patient is , resides with her . A [id number] smoking history. Negative for alcohol or illicit substances. REVIEW OF SYSTEMS: CONSTITUTIONAL: As per HPI, most notably for low-grade fever, fatigue. She is not anorexic or losing weight. SKIN: Again, erythema around the port site but no other evidence of dermatoses. HEENT: Negative for headaches, lightheadedness or dizziness. No acute visual or hearing deficits. No sinus symptoms, sore throat or dysphagia. LYMPHATICS: No history of lymphoproliferative disease. CARDIAC: Negative for coronary artery disease, no angina or palpitations. PULMONARY: Negative for COPD. Positive for chest pain. Positive for shortness of breath and pain on inspiration. No hemoptysis reported. GASTROINTESTINAL: Intermittent nausea. No abdominal pain, no diarrhea or constipation at present. GENITOURINARY: No hematuria, dysuria, or urinary incontinence. PSYCHIATRIC: Positive for anxiety and depression by history. ENDOCRINE: Negative for diabetes. Positive for hypothyroidism. MUSCULOSKELETAL: Negative for skeletal pain. No focal muscle weakness. HEMATOLOGIC: Positive for leukocytosis and anemia, positive for thrombocytopenia. PHYSICAL EXAMINATION: GENERAL: Very pleasant 54-year-old female, awake, alert and appropriate, in no acute distress. VITAL SIGNS: Temperature 38.8, pulse 105, respiratory rate 16, blood pressure 105/69. SKIN: Without rash or lesion. HEENT: Head is atraumatic, normocephalic. Eyes: PERRLA. Nares patent without rhinorrhea or discharge. Throat is clear. Tongue is midline. Mucous membranes are moist. NECK: Supple without JVD or thyromegaly. LYMPHATICS: No cervical or supraclavicular palpable nodes. HEART: Regular rate and rhythm. LUNGS: Clear to auscultation bilaterally. ABDOMEN: Soft, nontender, nondistended. EXTREMITIES: No clubbing, cyanosis or edema. NEUROLOGIC: She is awake, alert and oriented x3. Cranial nerves are intact. LABORATORY DATA: WBC count 15,000, hemoglobin 10.2, platelet count 68,000, absolute neutrophil count 12,880. PT 16.5 seconds, INR 1.6. Sodium 134, potassium 3.7, chloride 102, carbon dioxide 27, creatinine 0.54, alkaline phosphatase is elevated at 184. COVID screening negative. Venous Doppler studies negative for DVT. CTA of the chest, small segmental pulmonary embolus within the lateral basilar segment of the right lower lobe, mild interval decrease in size of the left upper lobe mass from her CT scan in late 11/2019, mass is now cavitary, mild increase in subcarinal lymphadenopathy. IMPRESSION: 1. Pulmonary embolism. 2. Suspected MediPort cellulitis. 3. Triple-negative breast cancer. 4. Factor V Leiden mutation. 5. Antiphospholipid syndrome. 6. Lupus anticoagulant positive. 7. Anxiety/depression. 8. Hypothyroidism. PLAN: I saw and examined Luly at bedside this morning. This lady unfortunately is battling with triple-negative metastatic breast cancer, recently started on combination gemcitabine and paclitaxel in 12/2019. She developed a sharp, stabbing chest pain with painful inspiration, necessitating a CTA of the chest. This lady has a prior history of lupus anticoagulant positivity, but knew little else about her prior thrombotic history. She was basically maintained on "prophylactic Coumadin" maintaining an INR of 1.5 to 2, which is not therapeutic for acute thrombotic event and thus cannot be construed as a Coumadin failure per se. Appropriately, the patient was started on intravenous heparin and could be considered for full-dose warfarin, maintaining an INR of 2.5 to 3 versus 1.5 mg/kg daily dose of low-molecular weight heparin. We will discuss further with Luly as her hospitalization proceeds. Unfortunately, her prognosis is exceedingly poor. She has expressed a desire to continue her fight and will plan to resume chemotherapy when medically stable. Agree with empiric antibiotics. Continue to monitor expansion of erythema around the port site, perhaps obtain port blood culture. We will continue to follow Luly periodically during her hospital stay. Appreciate your assistance in the care of this patient.
[2020-04-04] MEDS: ACETAMINOPHEN 325 MG TAB PO PRN (20:23)
[2020-04-04] MEDS: ALPRAZolam 0.5 MG TABLET PO PRN (20:24)
[2020-04-04] MEDS: LIDOCAINE 4% CREAM 15 GM TUBE EXT SCH (20:24)
[2020-04-04] MEDS: GABAPENTIN 300 MG CAP PO SCH (20:25)
[2020-04-05] MEDS: VANCOMYCIN HCL 1,250 MG in SODIUM CHLORIDE 0.9% 250 ML IV SCH ×3 (00:11→16:39)
[2020-04-05] MEDS: MoRPHine SULFATE 4 MG/ML 1 ML CARP\\VIAL IV PRN ×9 (01:57→15:51)
[2020-04-05] MEDS: ACETAMINOPHEN 325 MG TAB PO PRN (01:57)
[2020-04-05] MEDS: ONDANSETRON INJ 2 MG/ML 2 ML VIAL IV PRN (01:58)
[2020-04-05] MEDS: PIPERACILLIN/TAZOBACTAM 3.375 GM in DEXTROSE 5% 100 ML IV SCH ×2 (02:58→12:20)
[2020-04-05] MEDS: PROCHLORPERAZINE MALEATE 10 MG TAB PO PRN (03:48)
[2020-04-05] MEDS: BUTALBITAL/ACETAMIN/CAFFEINE TAB PO PRN (06:43)
[2020-04-05] MEDS ORDERED: VANCOMYCIN TROUGH ONE (07:30)
[2020-04-05] MEDS: PANTOprazole 40 MG TAB PO SCH ×2 (07:50→20:47)
[2020-04-05] MEDS: FAMOTIDINE 20 MG TAB PO SCH ×2 (07:50→20:47)
[2020-04-05] MEDS: ADVANCED PROBIOTIC 1250 MG CAPSULE PO SCH (08:08)
[2020-04-05] MEDS: LIOTHYRONINE SODIUM 5 MCG TAB PO SCH (08:08)
[2020-04-05] MEDS: ENOXAPARIN INJ 60 MG/0.6 ML SYR SQ SCH ×2 (08:09→20:48)
[2020-04-05] MEDS: METHADONE HCL 10 MG TAB PO SCH ×3 (08:09→20:50)
[2020-04-05] MEDS: LIDOCAINE 4% CREAM 15 GM TUBE EXT SCH ×2 (08:10→20:47)
[2020-04-05 08:30] LABS: Creatinine Clr Calc Pharmacy 65.6 ml/min; Est GFR (African American) 88.1; Est GFR (Non-African American) 76.1
[2020-04-05] MEDS: RASPBERRY SYRUP 5 ML UDP PO SCH ×2 (08:45→08:50)
[2020-04-05] MEDS: VANCOMYCIN HCL 125 MG/2.5ML SOLN PO SCH (08:45)
--- NOTE | 2020-04-05 09:30 | Pharmacy Report ---
Pharmacy Abx Dose Short Note - Date of Service April 05, 2020 - Assessment & Plan Assessment 54 year old F receiving vancomycin/Zosyn for treatment of febrile illness plus possible port infection Day # 3 of antimicrobial therapy. Plan Vancomycin Patient meets criteria for vancomycin AUC dosing nomogram AUC/SHYAM is the preferred PK/PD target for vancomycin * Target AUC/SHYAM = 400-600 * Trough level of 18.9 mcg/mL is predicted to achieve target AUC/SHYAM * AUC guided dosing is effective and associated with decreased risk of nephrotoxicity Pharmacy will continue to follow and will adjust dose/frequency as necessary. Thank you.
[2020-04-05 10:32] LABS: Hematocrit (blood only) 27.8 % (37-47); Hemoglobin 9.4 g/dL (12.0-16.0); Mean Corpuscular Hemoglobin 29.2 pg (25-34); Mean Corpuscular Volume 86.3 fL (80-100); RDW Coefficient of Variation 15.8 % (11.5-14.5); Red Blood Count 3.22 M/uL (4.2-5.4); White Blood Count 15.19 K/uL (4.8-10.8)
[2020-04-05 10:41] LABS: Mean Corpuscular Hgb Conc 33.8 g/dL (32-36); Mean Platelet Volume 10.7 fL (7.4-10.4); Platelet Count 74 K/uL (130-400)
[2020-04-05 10:45] LABS: INR 2.1 (0.9-1.1); Prothrombin Time 20.9 Seconds (9.0-12.0)
--- NOTE | 2020-04-05 10:49 | Hospitalist Progress Note ---
Date of Service April 05, 2020 Assessment & Plan (1) Pulmonary embolism: Not surprising giving her history of thrombophilia (Factor V and lupus anticoagulant) and her current malignancy. She had been on a low dose warfarin regimen (1.5 - 2 goal range) so really cannot classify this as a warfarin failure. We did discuss that Lovenox has the best efficacy in terms of VTE treatment/prevention in those with malignancy; certainly with her thrombophilia plus malignancy she would be extremely high risk for recurrent VTE. We did discuss the benefits of Lovenox over warfarin in terms of no need for diet restrictions and monitoring; versus the need to self inject on a daily basis with the Lovenox. Continue Lovenox. Can transition to daily dosing (1.5 mg/kg upon discharge). Discontinue warfarin. Monitor platelets. Present on Admission?: Yes (2) Metastatic breast cancer: Appreciate oncology consultation. Unfortunate she does have triple negative metastatic breast cancer. Palliative care consulted for pain management. Agree with methadone giving its long half-life. NSAIDs and/or Decadron probably are the best for bony metastatic pain, so this could be consideration moving forward. Present on Admission?: Yes (3) Infection of venous access port: Check CBC (pending). Await cultures. Continue vancomycin and Zosyn. Check ESR just to get an idea of where she is at; certainly this will be high with her malignancy so may not help differentiate an infection. Unfortunately her blood was drawn before we could add a procalcitonin level; so we will add this for the morning. She does have a cardiac murmur this morning which is apparently new; will check transthoracic echocardiogram. I discussed with the patient that she may indeed need a transesophageal echocardiogram showed suspicion for endocarditis continue. Present on Admission?: Yes (4) Hypothyroidism: Continue current dose. Present on Admission?: Yes (5) Hyperlipemia: Admission and Anticipated Discharge Date Admission Date: April 03, 2020 Ernesto Mauricio is doing a little better this morning in terms of pain. She did have some pain overnight. She also unfortunately spiked a temperature of 39.2 C just after 8 PM last night. Upon our exam this morning, her spirits are fairly suprisingly good despite her condition. Review of Systems Constitutional: + fever and + body aches Eyes: no problem reported Respiratory: + cough and + dyspnea Cardiovascular: no chest pain with activity Gastrointestinal: no nausea and no vomiting Genitourinary: no urinary frequency and no urinary incontinence Musculoskeletal: + back pain and + joint pain Physical Exam Constitutional: WD/WN, vitals as above Eyes: PERRL, conjunctivae normal, anicteric sclerae Neck: trachea midline, no thyromegaly Respiratory: normal respiratory effort, lungs clear to auscultation Decreased left compared to right Cardiovascular: Rate/Rhythm: regular rate Heart Sounds: + murmur (2/6 RSB systolic murmur) Gastrointestinal (Abdomen): normal bowel sounds, soft, nontender, no hepatosplenomegaly Inspection/Auscultation: abdomen normal to inspection Musculoskeletal: no cyanosis or clubbing, extremities motor strength 5/5 Skin: no rashes, warm and dry Psychiatric: A+Ox3, euthymic affect Orientation: alert, oriented x [address] Results & Data Results & Data ([facility]) Vital Signs (Past 12 Hours) Vital Signs Temp Pulse Pulse Resp BP Pulse Ox 04/05/20 09:23 120 H 04/05/20 07:59 36.5 C 69 18 125/63 96 04/05/20 03:57 36.9 C 95 H 18 94/56 L 91 04/05/20 01:56 37.1 C 116/70 04/05/20 00:07 37.5 C 81 16 83/53 L 93 04/05/20 00:00 93 H (1) Pulmonary embolism Acute cor pulmonale presence: unspecified Chronicity: acute Pulmonary embolism type: unspecified Qualified Code(s): I26.99 - Other pulmonary embolism without acute cor pulmonale
[2020-04-05 10:59] LABS: Basophils # (auto) 0.01 K/uL (0-0.2); Basophils % (auto) 0.1 %; Eosinophils # (auto) 0.01 K/uL (0-0.5); Eosinophils % (auto) 0.1 %; Immature Granulocytes # (auto) 0.08 K/uL (0.00-0.02); Immature Granulocytes % (auto) 0.5 %; Lymphocytes # (auto) 0.97 K/uL (1.2-3.4); Lymphocytes % (auto) 6.4 %; Monocytes # (auto) 1.01 K/uL (0.11-0.59); Monocytes % (auto) 6.6 %; Neutrophils # (auto) 13.11 K/uL (1.4-6.5); Neutrophils % (auto) 86.3 %; Toxic Granulation 1+
[2020-04-05 11:01] LABS: Albumin Level 2.4 gm/dl (3.4-5.0); BUN Creatinine Ratio 12.8 (10-20); C Reactive Protein 16.7 mg/dl (0-0.29); Calcium 8.3 mg/dl (8.5-10.1); Creatinine Clr Calc Pharmacy 55.9 ml/min; Est GFR (African American) 72.6; Est GFR (Non-African American) 62.6; Potassium 3.5 mmol/L (3.5-5.1)
[2020-04-05 11:04] LABS: Albumin Globulin Ratio 0.6 (0.9-2); Bilirubin,Total 0.6 mg/dl (0.2-1); Globulin 3.8 gm/dl (2.5-4.0); Total Protein 6.2 gm/dl (6.4-8.2)
--- NOTE | 2020-04-05 16:03 | Palliative Care Progress Note ---
Date of Service April 05, 2020 Assessment & Plan (1) Chest pain: Improved with morphine. Rotate to po for longer duration of action and anticipation of regimen for home. Tolerating gabapentin. Continue topical lidocaine. Will increase methadone due to frequent use of prn morphine. Revjuan carlos ewed EKG done on 04/03 with QTc 425. She had been on up to 20mg TID in the past. (2) Palliative care encounter: Admission and Anticipated Discharge Date Admission Date: April 03, 2020 Subjective Less pain with morphine but using it pretty much every hour while awake. "It doesn't last long". She is worried about pain level increasing. Good relief with topical lidocaine. Not overly sedated but feels tired. Appetite is better. Slept better last night. Review of Systems Review of Systems: [place] Symptom Assessment Scale Pain 1/3 Dyspnea 1/3 Nausea 1/3 Constipation 0/3 Drowsiness 0/3 Palliative Performance Score 50% Physical Exam Constitutional: no acute distress Respiratory: normal respiratory effort; no labored breathing Musculoskeletal: Extremities: extremities normal to inspection Skin: no rashes, warm and dry Neurologic: moves all extremities Psychiatric: A+Ox3, euthymic affect Results & Data ([facility]) Vital Signs (Past 12 Hours) Vital Signs Temp Pulse Pulse Resp BP Pulse Ox 04/05/20 15:33 96 H 04/05/20 14:53 99.0 F 97 H 20 114/72 93 04/05/20 11:00 99.3 F 98 H 18 93/61 L 93 04/05/20 09:23 120 H 04/05/20 07:59 97.7 F 69 18 125/63 96 04/05/20 03:57 98.4 F 95 H 18 94/56 L 91 PG Care Time/CCT Total # of Minutes Spent Total Time Spent with Patient: Total time spent is greater than 50% in coordination of care (as documented) at patient's floor/unit and/or counseling patient:35 Coding Level of Care Code 27870 Subseq Hosp Care Lvl 3 Diagnoses Chest pain R07.9 Chest pain type: unspecified Palliative care encounter Z51.5 (1) Chest pain Chest pain type: unspecified Qualified Code(s): R07.9 - Chest pain, unspecified
--- NOTE | 2020-04-05 18:29 | XCELERA ---
[id number]
[2020-04-05] MEDS: GABAPENTIN 300 MG CAP PO SCH (20:47)
[2020-04-05] MEDS: METHADONE HCL 5 MG TAB PO SCH (20:49)
[2020-04-06] MEDS: MoRPHine SULFATE 4 MG/ML 1 ML CARP\\VIAL IV PRN ×4 (00:02→18:57)
[2020-04-06] MEDS: ACETAMINOPHEN 325 MG TAB PO PRN ×2 (00:02→10:40)
[2020-04-06 07:18] LABS: Basophils # (auto) 0.01 K/uL (0-0.2); Basophils % (auto) 0.1 %; Eosinophils # (auto) 0.04 K/uL (0-0.5); Eosinophils % (auto) 0.3 %; Hematocrit (blood only) 27.5 % (37-47); Hemoglobin 9.1 g/dL (12.0-16.0); Immature Granulocytes # (auto) 0.03 K/uL (0.00-0.02); Immature Granulocytes % (auto) 0.3 %; Lymphocytes % (auto) 7.8 %; Mean Corpuscular Hemoglobin 28.7 pg (25-34); Mean Corpuscular Hgb Conc 33.1 g/dL (32-36); Mean Corpuscular Volume 86.8 fL (80-100); Mean Platelet Volume 11.1 fL (7.4-10.4); Monocytes % (auto) 8.6 %; Neutrophils # (auto) 9.61 K/uL (1.4-6.5); Neutrophils % (auto) 82.9 %; Platelet Count 102 K/uL (130-400); RDW Coefficient of Variation 15.9 % (11.5-14.5); Red Blood Count 3.17 M/uL (4.2-5.4); White Blood Count 11.59 K/uL (4.8-10.8)
[2020-04-06 07:49] LABS: BUN Creatinine Ratio 13.8 (10-20); Creatinine Clr Calc Pharmacy 38.9 ml/min; Est GFR (African American) 46.9; Est GFR (Non-African American) 40.4; Potassium 3.5 mmol/L (3.5-5.1)
[2020-04-06] MEDS: LIDOCAINE 4% CREAM 15 GM TUBE EXT SCH ×3 (08:24→20:54)
[2020-04-06] MEDS: LIOTHYRONINE SODIUM 5 MCG TAB PO SCH (08:24)
[2020-04-06] MEDS: ENOXAPARIN INJ 60 MG/0.6 ML SYR SQ SCH (08:25)
[2020-04-06] MEDS: PANTOprazole 40 MG TAB PO SCH ×2 (08:26→20:55)
[2020-04-06] MEDS: FAMOTIDINE 20 MG TAB PO SCH ×2 (08:26→20:55)
[2020-04-06] MEDS: ADVANCED PROBIOTIC 1250 MG CAPSULE PO SCH (08:26)
[2020-04-06] MEDS: RASPBERRY SYRUP 5 ML UDP PO SCH (08:27)
[2020-04-06] MEDS: VANCOMYCIN HCL 125 MG/2.5ML SOLN PO SCH (08:36)
[2020-04-06] MEDS: METHADONE HCL 10 MG TAB PO SCH ×3 (08:36→20:53)
[2020-04-06] MEDS: METHADONE HCL 5 MG TAB PO SCH ×3 (08:37→20:53)
[2020-04-06] MEDS: MoRPHine SULFATE IR 15 MG TAB (IMMEDIATE RELEASE) PO PRN ×3 (08:38→23:22)
[2020-04-06] MEDS ORDERED: VANCOMYCIN HCL 1,250 MG in SODIUM CHLORIDE 0.9% 250 ML IV ONE (09:30)
[2020-04-06] MEDS ORDERED: PIPERACILLIN/TAZOBACTAM 3.375 GM in DEXTROSE 5% 100 ML IV ONE (09:30)
[2020-04-06] MEDS ORDERED: SODIUM CHLORIDE 0.9% 1000ML 1,000 ML IV SCH (09:35)
--- NOTE | 2020-04-06 09:53 | Hospitalist Progress Note ---
Date of Service April 06, 2020 Assessment & Plan (1) Pulmonary embolism: Patient is a 54 year old female with PMHx Metastatic breast cancer, Chiari malformation type I, Factor V Leiden deficiency, Hyperlipidemia, that presents with chest pain and dyspnea on exertion which started the night of 04/02/20. Pulmonary Embolism: - On admission with increased work of breathing. - Small segmental PE within the lateral basilar segment of the RLL noted on CT scan. - Venous dopplers negative for DVT or thrombus. - Patient with lupus anticoagulant, Factor V Leiden, current metastatic cancer so at significant risk for clots for several reasons. - Continue therapeutic Lovenox q12h for treatment; will hold prior to port removal. - Patient had been taking home warfarin 5mg daily with INR goal of 1.5-2 prior to admission now increased to 7.5 mg daily with goal INR between 2 and 3. - Cannot be considered a warfarin failure given previous INR goals, however patient tolerates injection well and will continue Lovenox. - Patient has not needed oxygen and has no respiratory symptoms lying in bed or with ambulation today. Possible port infection vs. periportal cellulitis: - Erythema and pain noted by patient on admission around port site, patient with fevers at home and Tmax 39.2. - WBC elevated to 19 -> 11.5 today, continue vanc/cefepime. - BCx collected on 04/03 negative for bacteria. This included one draw from port site. - Port site non-erythematous but with significant tenderness at the site. - ID consulted; recommend vancomycin IV and port removal. - General Surgery consulted for likely port removal. - BCx recollected today. LANCE: - Today with creatinine 1.45, baseline 0.8-1.0. - This is in the setting of combination therapy with vancomycin and Zosyn. - Will transition Zosyn to cefepime. - Will also give 1L bolus NSS and recheck BMP in AM. Encourage PO fluids. Systolic Heart Murmur: - Not previously noted in EMR. - Given potential port infection, TTE performed which showed no obvious valvular abnormalities of vegetations. - BCx negative to date as above, unlikely to be vegetation however will repeat BCx. - Consider KARINA. Metastatic Breast Cx: - History of metastatic triple negative breast cancer. - L upper lobe known mass with slight in size from 4.1 x 3.1cm to 3.9 x 2.6 cm 3 months prior. - Last chemo 03/26/20 with Neulasta 03/25/20; next chemotherapy scheduled for 04/09. - Current pain regiment with Methadone 10mg TID and IV Tylenol 1000mg TID PRN. - Continue home oxycodone 10 mg TID PRN; morphine 2 mg IV for breakthrough severe pain. - Zofran and Compazine PRN nausea. - Dr. Martinez following, appreciate recommendations. Factor V Deficiency/Antiphospholipid antibody syndrome/ Lupus anticoagulant disorder: - Continue Lovenox as above. GERD: - Continue home Famotidine. - Continue home Pantoprazole. Anxiety: - Continue home Xanax 0.5 mg BID PRN. Hypothyroidism: - Continue home Liothyronine 10mcg daily. Dispo: PCU FEN: Regular diet DVT: Lovenox 60mg SQ q12h -> transition to q24h dosing for discharge, and hold prior to surgery Code: DNR/DNI Admission and Anticipated Discharge Date Admission Date: April 03, 2020 Supervising Physician Co-Signing Physician Notes I personally examined the patient and verified all bernardo points of history and exam, discussed case, and agree with decision making with Dr Gautam. extensive discussions. mostly on big picture of a cancer journey, largely on nutrition, importance of mental attitude, close f/u w PCP/palliative in addition to oncology. also discussed fever - ~5-6 days prior to admit. breast skin having ups and downs but nothing different from her normal since this all started and better now than usual. port hurts - never did before. pain radiates to shoulder, maybe neck a little. hurt to access as well - never did before. no other infectious s/s. ID input appreciated, case d/w surgery vitals noted nad heent nc at mmm. no periport erythema but is VERY tender. breast thickened but no erythema no open lesions. exam otherwise a above presumed port infection - without bacteremia fortunately - but no other source of infection apparent, but fevers/white count/etc strongly suggest infection. on abx - continue for now. port to come out tomorrow. then abx on peripheral IV for a day or so- then anticipate PICC for ongoign abx and chemo until new more permanent central access can be placed weight loss/acute protein calorie malnutrition (probably moderate protein, severe calorie given about 40lbs weight loss but albumin 2.4) - discussed nutrition at length and in detail PE - lovenox. disucssed risks/benefits of short hold to get port out. she understands and agrees metastatic breast cancer - offered empathy/support/counselling 2 visits today first from ~4539-4041, second from about 610-630, >30mins face to face Subjective Patient with episode of temperature 99.9 causing her to ask for Tylenol. Much more comfortable with regard to pain today after starting as needed methadone and morphine. Describes that for several days before admission she had fevers that would not break often over 100.4, as well as new pain over port site. Tom es shortness of breath today. Review of Systems Review of Systems: All systems reviewed & are unremarkable except as noted in HPI & below Constitutional: no fever, no chills and no malaise Respiratory: no cough and no dyspnea Cardiovascular: no chest pain, no palpitations and no edema Gastrointestinal: no abdominal pain, no constipation and no diarrhea/loose stools Genitourinary: no dysuria and no hematuria Physical Exam Constitutional: WD/WN, vitals as above Respiratory: normal respiratory effort, lungs clear to auscultation Cardiovascular: RRR, no murmur, no edema Chest (Breasts): Additional Comments: left breast with peau de l'orange noted, swollen without erythema as compared to opposite side. Gastrointestinal (Abdomen): normal bowel sounds, soft, nontender, no hepatosplenomegaly Skin: no rashes, warm and dry Psychiatric: A+Ox3, euthymic affect Results & Data Results & Data ([facility]) Vital Signs (Past 12 Hours) Vital Signs Temp Pulse Pulse Resp BP Pulse Ox 04/06/20 08:00 36.8 C 112 H 18 122/80 93 04/06/20 07:17 99 H 04/06/20 04:23 36.6 C 92 H 16 94/59 L 92 04/05/20 23:45 37.2 C 99 H 16 93/54 L 90 Resident Activity Tracking Resident Involvement: Resident Care Provided Care Provided: Adult Hospital Medicine (1) Pulmonary embolism Acute cor pulmonale presence: unspecified Chronicity: acute Pulmonary embolism type: unspecified Qualified Code(s): I26.99 - Other pulmonary embolism without acute cor pulmonale
[2020-04-06] MEDS ORDERED: CEFEPIME CONSULT ACTIVE PRN (10:20)
--- NOTE | 2020-04-06 11:12 | Pharmacy Report ---
Pharmacy Abx Dose Short Note - Date of Service April 06, 2020 - Assessment & Plan Assessment 54 year old F receiving vancomycin/cefepime for treatment of fever and potential skin infection Day # 4 of antimicrobial therapy. Plan Vancomycin * Random level of 17 mcg/mL is therapeutic. Patient's kidney function has changed over the last 24 hours. Serum creatinine has increased from 0.86 mg/dL to 1.45 mg/dL. * vancomycin 1000 mg (15 mg/kg) IV x 1 * Goal trough level for fever : 15 mcg/mL * Random ordered for: 04/07/20 around 0400 (~18 hours after dose) Pharmacy will continue to follow and will adjust dose/frequency as necessary. Thank you.
[2020-04-06] MEDS: CEFEPIME 2,000 MG in SYRINGE 0 ML IV SCH ×2 (11:34→20:54)
[2020-04-06] MEDS ORDERED: VANCOMYCIN HCL 1,000 MG in SODIUM CHLORIDE 0.9% 250 ML IV ONE (12:00)
--- NOTE | 2020-04-06 13:58 | Palliative Care Progress Note ---
Date of Service April 06, 2020 Assessment & Plan (1) Chest pain: Improved with increased methadone, addition of gabapentin and topical lidocaine, and rotation to morphine prn for breakthrough pain. She feels that 3/10 is a pain level that is tolerable for her and goal is 3 or less. She would likely benefit from increase in gabapentin but will monitor for now as this was just started two days ago. Continue current medications for now and monitor. (2) Palliative care encounter: (3) Metastatic breast cancer: (4) Pulmonary embolism: (5) Infection of venous access port: Admission and Anticipated Discharge Date Admission Date: April 03, 2020 Subjective Had good night's sleep. Rates pain as down to a 3 today. Had prn morphine this morning with good relief. No problems with sedation or constipation. Review of Systems Review of Systems: [place] Symptom Assessment Scale Pain1/3 Dyspnea 1/3 Nausea 0/3 Fatigue 2/3 Anxiety 2/3 Depression 0/3 Drowsiness 0/3 Palliative Performance Score 60% Physical Exam Constitutional: no acute distress Respiratory: normal respiratory effort; no labored breathing Musculoskeletal: Extremities: extremities normal to inspection Skin: warm and dry, erythema left breast Neurologic: no focal motor deficits Psychiatric: Orientation: alert and oriented x 3 Results & Data ([facility]) Vital Signs (Past 12 Hours) Vital Signs Temp Pulse Pulse Resp BP Pulse Ox 04/06/20 11:42 98.4 F 98 H 18 102/68 93 04/06/20 08:00 98.2 F 112 H 18 122/80 93 04/06/20 07:17 99 H 04/06/20 04:23 97.9 F 92 H 16 94/59 L 92 PG Care Time/CCT Total # of Minutes Spent Total Time Spent with Patient: Total time spent is greater than 50% in coordination of care (as documented) at patient's floor/unit and/or counseling patient: total time spent 25 min with less than 50% of time spent on symptom management, coordination of care Coding Level of Care Code 37175 Subseq Hosp Care Lvl 2 Diagnoses Chest pain R07.9 Chest pain type: unspecified Palliative care encounter Z51.5 Metastatic breast cancer C50.919 Pulmonary embolism I26.99 Acute cor pulmonale presence: unspecified Chronicity: acute Pulmonary embolism type: unspecified Infection of venous access port T80.219A (1) Chest pain Chest pain type: unspecified Qualified Code(s): R07.9 - Chest pain, u nspecified (2) Pulmonary embolism Acute cor pulmonale presence: unspecified Chronicity: acute Pulmonary embolism type: unspecified Qualified Code(s): I26.99 - Other pulmonary embolism without acute cor pulmonale
[2020-04-06] MEDS ORDERED: PIPERACILLIN/TAZOBACTAM 3.375 GM in DEXTROSE 5% 100 ML IV SCH (14:00)
[2020-04-06] MEDS: ONDANSETRON INJ 2 MG/ML 2 ML VIAL IV PRN (15:33)
--- NOTE | 2020-04-06 17:11 | Surgery Consultation ---
Date of Consultation April 06, 2020 Assessment & Plan (1) Infection of venous access port: This is a 54y F with a PMH of metastatic breast ca, factor V deficiency on chronic anticoagulation who presented to the [facility] ED on 04/03/19 as a referral from the breast cancer for shortness of breath and fevers. She has subsequently been diagnosed with pulmonary emboli and transitioned from coumadin to lovenox injections. Surgery was consulted as patient had complaints of port discomfort since january, erythema, along with ongoing fevers with concern she has a possible port infection. Blood cultures from 04/03 are currently no growth to date and have been repeated today. Last fever documented this admission is 39.2 C on 04/04. Apparently her port has been functioning well without issues and last chemo was on 03/26/20. Currently the port site appears c/d/i without erythema or signs of infection, but she has been on IV abx since admission. Infectious disease has been consulted and recommended removal of the port. We will discuss plan of care with the hospitalists on their thoughts prior to removing. If removed will have to discuss the possibility of holding her anticoagulation given her recent dx of pulmonary emboli. Timing to be determined based on OR schedule. If we remove it she will likely need PICC for IV abx and consideration of replacement of port down the road. Supervising Physician Co-Signing Physician Notes Patient seen and examined, labs and imaging reviewed, agree with above. 54-year-old female with triple negative metastatic breast cancer on chemotherapy admitted for new PEs despite anticoagulation. She had a right subclavian port placed in December by Dr. Sevilla. Over the past month she has had increasing tenderness in the area and on admission she had some erythema around the area. She has had negative cultures from the port and is currently on antibiotics. She has been having fevers. ID has been consulted and they are presuming that the fevers are related to an infected port. She is currently on Lovenox and her most recent INR was 2.1. On exam she is afebrile currently with stable vitals. On her right chest there is a port with incision well-healed, no erythema or cellulitis. It is slightly tender to the touch. Her blood cultures from the port from the fifth show no growth to date. After discussion with Dr. Taylor, who is spoken with the infectious disease doctor, they are recommending that we remove the port. We will repeat her INR, hold her Lovenox, make her n.p.o. Plan for possible port removal tomorrow. Plan for right chest port removal The risks of the procedure were discussed to include but not limited to bleeding, infection, port fracture, need for future more extensive surgery, and and the risk of anesthesia Repeat INR this evening, may require vitamin K N.p.o. after midnight Hold Lovenox Patient will PICC line for prolonged antibiotics History of Present Illness Attending Physician: Pankaj Taylor DO History of Present Illness This is a 54y F with a PMH of metastatic breast ca, factor V deficiency on crate icer familia anticoagulation who presented to the [facility] ED on 04/03/19 as a referral from the breast cancer for shortness of breath and fevers. In the ED patient underwent a CT chest that revealed evidence of pulmonary embolism. She reports that she had been taking her coumadin consistently. Patient was started on heparin and transitioned to lovenox. Surgery was consulted today for removal of her port for possible infection due to ongoing fevers. The patient states that since an ER visit in January her port was attempted to be accessed with great difficulty. The patient says it never felt right thereafter and was fairly tender, also noting some redness develop around the site. Her last chemo was performed on 03/26 and patient reports ongoing fevers since then despite taking Tylenol. When she was admitted on 04/03 she noted that again there was a lot of pain when the port was accessed and used. Surgery has been consulted now for consideration of removal given concern for possible infection. Allergies Allergy/AdvReac Type Severity Reaction Status Date / Time hydrocodone [From Lortab] Allergy Severe Headache Verified 04/03/20 16:37 adhesive Allergy Unknown Rash Verified 04/03/20 16:37 methocarbamol [From Robaxin] Allergy Unknown Unknown Verified 04/03/20 16:37 povidone Allergy Unknown Blisters Verified 04/03/20 16:42 povidone-iodine Allergy Unknown Blisters Verified 04/03/20 16:42 [From Betadine] propoxyphene [From Darvon] Allergy Unknown Headache Verified 04/03/20 16:37 soap [From Betadine] Allergy Unknown Blisters Verified 04/03/20 16:42 codeine AdvReac Intermediate Severe Verified 04/03/20 16:37 headache, nausea Home Medications Medication Instructions Recorded Confirmed Type fdskkotohl-qupsggfnunwjs-szriztyn 1 cap PO Q4H PRN 01/13/20 04/03/20 History 50 mg-300 mg-40 mg capsule cyclobenzaprine 10 mg tablet 10 mg PO TID PRN 01/13/20 04/03/20 History diclofenac sodium 1 % topical gel 2 g TOPICAL QID PRN 01/13/20 04/03/20 History liothyronine 5 mcg tablet 10 mcg PO QAM tab 01/13/20 04/03/20 History methadone 10 mg tablet 10 mg PO TID tab 01/13/20 04/03/20 History ondansetron HCl 8 mg tablet 4 - 8 mg PO Q8H PRN 01/13/20 04/03/20 History oxycodone-acetaminophen 5 mg-325 1 tab PO Q4H PRN 01/13/20 04/03/20 History mg tablet simvastatin 40 mg tablet 40 mg PO QPM 01/13/20 04/03/20 History warfarin 5 mg tablet 5 mg PO DAILY tab 01/13/20 04/03/20 History zolpidem 12.5 mg tablet,extended 12.5 mg PO DAILY PRN tab 01/13/20 04/03/20 History release,multiphase alprazolam 0.5 mg PO BID PRN 02/04/20 04/03/20 History dexamethasone 20 mg PO DIRECTED PRN 02/04/20 04/03/20 History L.acidop,teo,lac,rha-B.lac,xena 2 cap PO DAILY PRN 04/03/20 04/03/20 History [Advanced Probiotic] famotidine 20 mg PO BID 04/03/20 04/03/20 History oxycodone 10 mg PO DIRECTED PRN 04/03/20 04/03/20 History pantoprazole 40 mg PO BID 04/03/20 04/03/20 History prochlorperazine maleate 10 mg PO Q6H PRN 04/03/20 04/03/20 History Patient History Medical History Antiphospholipid antibody syndrome Factor V Leiden Fibromyalgia History of blood clots hx of small vessel eye blood clots per remote [facility] records, hx antiphospholipid antibody syndrome/lupus anticoagulant/factor V- on coumadin History of Chiari malformation s/p surgery/repair (2014), no acute findings on 01/13/20 brain MRI History of HPV infection Hyperlipidemia Hypothyroidism IBD (inflammatory bowel disease) Jaw pain, non-TMJ Lupus anticoagulant syndrome Lymphedema Metastatic breast cancer recent diagnosis; mets to lungs, lymph nodes Migraines Rheumatoid arthritis Surgical History CSF leak post craniotomy; surgically repaired 2014 History of breast biopsy History of cholecystectomy History of colonoscopy History of craniotomy suboccipital craniectomy, C1 laminectomy, and duraplasty to treat a type 1 Chiari malformation 2014 [place] History of D&C x2 History of excision of mass vulvar History of hysterectomy History of lumpectomy x 6 History of surgery on arm Left Brachial 1992 History of tooth extraction PONV (postoperative nausea and vomiting) Slow to wake up after anesthesia Surgical history of tubal ligation Family History Mother Breast cancer Grandmother Heart disease Breast cancer Other No family history of adverse response to anesthesia Social History Smoking Status: Former smoker packs per day: 1; Years Smoked: 35; Second Hand Exposure: No; Hx Alcohol Use: No Hx Substance Use: No Preferred Language: Kazakh Communication Ability: Effective Visual Impairment: No Limitations Engineering Administrator Required: No Beliefs That Will Affect Care: None marital status: Current Living Situation: Family current occupation: Homemaker Feels Safe at Home: Yes Assistive Devices: Glasses Review of Systems Constitutional: + fever Respiratory: + dyspnea Integumentary: redness noted around port along with constant tenderness. Pain with accessing port and infusions Physical Exam Physical Exam: awake/alert Constitutional: cooperative and comfortable Respiratory: normal respiratory effort Skin: port site c/d/i incision well healed, no erythema or current signs of infection Results & Data ([facility]) Vital Signs (Past 12 Hours) Vital Signs Temp Pulse Pulse Resp BP Pulse Ox 04/06/20 16:00 88 04/06/20 15:03 36.6 C 85 18 101/66 98 01/08/21 11:42 36.9 C 98 H 18 102/68 93 04/06/20 08:00 36.8 C 112 H 18 122/80 93 04/06/20 07:17 99 H PG Care Time/CCT Total # of Minutes Spent Total Time Spent with Patient: Total time spent is greater than 50% in coordination of care (as documented) at patient's floor/unit and/or counseling patient: Coding Level of Care Code 36036 Inpt Consult Level 2 Diagnoses Infection of venous access port T80.219A
[2020-04-06] MEDS ORDERED: VANCOMYCIN HCL 1,250 MG in SODIUM CHLORIDE 0.9% 250 ML IV SCH (18:00)
[2020-04-06 18:04] LABS: INR 1.4 (0.9-1.1); Prothrombin Time 14.6 Seconds (9.0-12.0)
--- NOTE | 2020-04-06 18:50 | Billing Data ---
Date of Service April 06, 2020 Coding Level of Care Code 61214 Prolonged Care (int'l)
--- NOTE | 2020-04-06 18:50 | Billing Data ---
Date of Service April 06, 2020 Coding Level of Care Code 77760 Subseq Hosp Care Lvl 3
[2020-04-06] MEDS: ALPRAZolam 0.5 MG TABLET PO PRN (18:57)
[2020-04-06] MEDS: PROCHLORPERAZINE MALEATE 10 MG TAB PO PRN (19:30)
[2020-04-06] MEDS: GABAPENTIN 300 MG CAP PO SCH (20:55)
[2020-04-07 04:22] LABS: Basophils # (auto) 0.01 K/uL (0-0.2); Basophils % (auto) 0.1 %; Eosinophils # (auto) 0.09 K/uL (0-0.5); Hematocrit (blood only) 24.1 % (37-47); Hemoglobin 7.9 g/dL (12.0-16.0); Immature Granulocytes # (auto) 0.02 K/uL (0.00-0.02); Immature Granulocytes % (auto) 0.2 %; Lymphocytes # (auto) 0.65 K/uL (1.2-3.4); Lymphocytes % (auto) 7.3 %; Mean Corpuscular Hemoglobin 28.5 pg (25-34); Mean Corpuscular Hgb Conc 32.8 g/dL (32-36); Mean Platelet Volume 10.4 fL (7.4-10.4); Monocytes # (auto) 0.87 K/uL (0.11-0.59); Monocytes % (auto) 9.8 %; Neutrophils # (auto) 7.27 K/uL (1.4-6.5); Neutrophils % (auto) 81.6 %; Platelet Count 115 K/uL (130-400); RDW Coefficient of Variation 15.8 % (11.5-14.5); RDW Standard Deviation 48.5 fL (36.4-46.3); Red Blood Count 2.77 M/uL (4.2-5.4); White Blood Count 8.91 K/uL (4.8-10.8)
[2020-04-07 04:31] LABS: INR 1.3 (0.9-1.1)
[2020-04-07 04:41] LABS: BUN Creatinine Ratio 12.9 (10-20); Calcium 7.9 mg/dl (8.5-10.1); Creatinine Clr Calc Pharmacy 36.9 ml/min; Est GFR (African American) 43.9; Est GFR (Non-African American) 37.9; Potassium 3.5 mmol/L (3.5-5.1)
[2020-04-07 04:50] LABS: RBC Morphology Unremarkable
[2020-04-07] MEDS ORDERED: ONDANSETRON INJ 2 MG/ML 2 ML VIAL ONE (07:17)
[2020-04-07] MEDS ORDERED: fentaNYL citrate 100 MCG/2 ML VIAL ONE (07:17)
[2020-04-07] MEDS ORDERED: MIDAZOLAM HCL 1 MG/ML 2ML VIAL ONE ×2 (07:17→08:47)
[2020-04-07] MEDS ORDERED: PROPOFOL IV EMULSION 10 MG/ML 20 ML VIAL IV ONE ×2 (07:17)
[2020-04-07] MEDS ORDERED: LIDOCAINE HCL 2% 2 ML VIAL/AMP(20MG/ML) INFIL ONE (07:17)
--- NOTE | 2020-04-07 07:32 | Anesthesiology Consultation ---
Date of Service April 07, 2020 Assessment & Plan (1) Encounter for pre-operative examination: Chart Review Chart Review: Acceptable Risk for Surgery History Surgery Operation Date: 04/07/20 08:00 Proposed Procedures p Infusaport Removal - Dylan Guerrero DO, FELICIA Height/Weight Height: 5 ft 2 in Weight: 70 kg Allergies Allergy/AdvReac Type Severity Reaction Status Date / Time hydrocodone [From Lortab] Allergy Severe Headache Verified 04/03/20 16:37 adhesive Allergy Unknown Rash Verified 04/03/20 16:37 methocarbamol [From Robaxin] Allergy Unknown Unknown Verified 04/03/20 16:37 povidone Allergy Unknown Blisters Verified 04/03/20 16:42 povidone-iodine Allergy Unknown Blisters Verified 04/03/20 16:42 [From Betadine] propoxyphene [From Darvon] Allergy Unknown Headache Verified 04/03/20 16:37 soap [From Betadine] Allergy Unknown Blisters Verified 04/03/20 16:42 codeine AdvReac Intermediate Severe Verified 04/03/20 16:37 headache, nausea Medications Home Medications Medication Instructions Recorded Confirmed Last Taken [id number] 1 cap PO Q4H PRN 01/13/20 04/03/20 02/04/20 50 mg-300 mg-40 mg capsule cyclobenzaprine 10 mg tablet 10 mg PO TID PRN 01/13/20 04/03/20 Unknown diclofenac sodium 1 % topical gel 2 g TOPICAL QID PRN 01/13/20 04/03/20 01/16/20 12:00 liothyronine 5 mcg tablet 10 mcg PO QAM tab 01/13/20 04/03/20 04/03/20 methadone 10 mg tablet 10 mg PO TID tab 01/13/20 04/03/20 04/03/20 08:00 ondansetron HCl 8 mg tablet 4 - 8 mg PO Q8H PRN 01/13/20 04/03/20 Unknown oxycodone-acetaminophen 5 mg-325 1 tab PO Q4H PRN 01/13/20 04/03/20 01/18/20 20:00 mg tablet simvastatin 40 mg tablet 40 mg PO QPM 01/13/20 04/03/20 04/02/20 20:00 warfarin 5 mg tablet 5 mg PO DAILY tab 01/13/20 04/03/20 04/02/20 20:00 zolpidem 12.5 mg tablet,extended 12.5 mg PO DAILY PRN tab 01/13/20 04/03/20 01/17/20 21:00 release,multiphase alprazolam 0.5 mg PO BID PRN 02/04/20 04/03/20 Unknown dexamethasone 20 mg PO DIRECTED PRN 02/04/20 04/03/20 Unknown L.acidop,teo,lac,rha-B.lac,xena 2 cap PO DAILY PRN 04/03/20 04/03/20 Unknown [Advanced Probiotic] famotidine 20 mg PO BID 04/03/20 04/03/20 04/02/20 oxycodone 10 mg PO DIRECTED PRN 04/03/20 04/03/20 Unknown pantoprazole 40 mg PO BID 04/03/20 04/03/20 04/03/20 AM DOSE prochlorperazine maleate 10 mg PO Q6H PRN 04/03/20 04/03/20 Unknown Active Medications Generic Name Dose Route Start Last Admin Trade Name Freq PRN Reason Stop Dose Admin Acetaminophen 650 mg 04/04/20 16:07 04/06/20 10:40 Acetaminophen 325 Mg Tab PO 05/04/20 16:06 650 mg Q4H PRN Administration pain or fever Acetaminophen/Butalbital/Caffeine 1 tab 04/04/20 13:11 04/05/20 06:43 Butalbital/Acetamin/Caffeine Tab PO 05/04/20 13:10 1 tab Q4H PRN Administration Headache Alprazolam 0.5 mg 04/03/20 22:12 04/06/20 18:57 Alprazolam 0.5 Mg Tablet PO 05/03/20 22:11 0.5 mg BID PRN Administration Anxiety Enoxaparin Sodium 60 mg 04/04/20 09:00 04/06/20 08:25 Enoxaparin Inj 60 Mg/0.6 Ml Syr SQ 05/04/20 08:59 60 mg Q12 SAMANTA Administration Famotidine 20 mg 04/03/20 22:12 04/06/20 20:55 Famotidine 20 Mg Tab PO 05/03/20 22:11 20 mg BID SAMANTA Administration Gabapentin 300 mg 04/04/20 21:00 04/06/20 20:55 Gabapentin 300 Mg Cap PO 05/04/20 20:59 300 mg HS SAMANTA Administration Cefepime HCl 2,000 mg/ Syringe 20 mls @ 5 mls/min 04/06/20 11:00 04/06/20 20:54 IV 04/13/20 10:59 5 mls/min Q12 SAMANTA Administration Protocol Lactobacillus Acidoph/Casei/Rhamnos 2 cap 04/04/20 09:00 04/06/20 08:26 Advanced Probiotic 1250 Mg Capsule PO 05/04/20 08:59 2 cap DAILY SAMANTA Administration Lidocaine 1 appln 04/05/20 21:00 04/06/20 20:54 Lidocaine 4% Cream 15 Gm Tube EXT 05/05/20 20:59 1 appln TID SAMANTA Administration Liothyronine Sodium 10 mcg 04/04/20 09:00 04/06/20 08:24 Liothyronine Sodium 5 Mcg Tab PO 05/04/20 08:59 10 mcg QAM SAMANTA Administration Methadone HCl 10 mg 04/05/20 21:00 04/06/20 20:53 Methadone Hcl 10 Mg Tab PO 04/19/20 20:59 10 mg TID SAMANTA Administration Methadone HCl 2.5 mg 04/05/20 21:00 04/06/20 20:53 Methadone Hcl 5 Mg Tab PO 04/19/20 20:59 2.5 mg TID SAMANTA Administration Morphine Sulfate 4 mg 04/05/20 16:09 04/06/20 18:57 Morphine Sulfate 4 Mg/Ml 1 Ml Carp\Vial IV 04/18/20 18:58 4 mg Q3H PRN Administration Pain Morphine Sulfate 22.5 mg 04/05/20 16:04 04/06/20 23:22 Morphine Sulfate Ir 15 Mg Tab (Immediate Release) PO 04/19/20 16:03 22.5 mg Q4H PRN Administration Pain Ondansetron HCl 4 mg 04/03/20 22:12 04/06/20 15:33 Ondansetron Inj 2 Mg/Ml 2 Ml Vial IV 05/03/20 22:11 4 mg Q6H PRN Administration Nausea Pantoprazole Sodium 40 mg 04/03/20 22:12 04/06/20 20:55 Pantoprazole 40 Mg Tab PO 05/03/20 22:11 40 mg BID SAMANTA Administration Prochlorperazine 10 mg 04/03/20 22:12 04/06/20 19:30 Prochlorperazine Maleate 10 Mg Tab PO 05/03/20 22:11 10 mg Q6H PRN Administration Nausea And Vomiting Raspberry 5 ml 04/04/20 09:00 04/06/20 08:27 Raspberry Syrup 5 Ml Udp PO 04/18/20 08:59 5 ml QAM SAMANTA Administration Vancomycin HCl 125 mg 04/04/20 09:00 04/06/20 08:36 Vancomycin Hcl 125 Mg/2.5ml Soln PO 05/04/20 08:59 125 mg QAM SAMANTA Administration Past Medical History Medical History (Updated 04/07/20 @ 07:31 by Vincent Horowitz MD) LANCE (acute kidney injury) Anemia Antiphospholipid antibody syndrome Factor V Leiden Fibromyalgia History of blood clots hx of small vessel eye blood clots per remote 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, non-TMJ Lupus anticoagulant syndrome Lymphedema Metastatic breast cancer recent diagnosis; mets to lungs, lymph nodes Migraines Pulmonary embolism Rheumatoid arthritis Past Family History Family History Mother Breast cancer Grandmother Heart disease Breast cancer Other No family history of adverse response to anesthesia Past Surgical History Surgical History CSF leak post craniotomy; surgically repaired 2014 History of breast biopsy History of cholecystectomy History of colonoscopy History of craniotomy suboccipital craniectomy, C1 laminectomy, and duraplasty to treat a type 1 Chiari malformation 2015 [place] History of D&C x2 History of excision of mass vulvar History of hysterectomy History of lumpectomy x 6 History of surgery on arm Left Brachial 1992 History of tooth extraction PONV (postoperative nausea and vomiting) Slow to wake up after anesthesia Surgical history of tubal ligation Social History Smoking Status: Former smoker Do You Dip or Chew Tobacco: No Hx Alcohol Use: No Hx Substance Use: No substance use type: does not use Physical Exam Vital Signs Last Vital Signs Temp 37.6 C H 04/07/20 07:26 Pulse 108 H 04/07/20 07:26 Resp 18 04/07/20 07:26 BP 96/64 L 04/07/20 07:26 Pulse Ox 94 04/07/20 07:26 Testing Laboratory Results 04/07/20 04:07 04/07/20 04:07 PT 14.0 Seconds (9.0-12.0) H 04/07/20 04:07 INR 1.3 (0.9-1.1) H 04/07/20 04:07 APTT 34.5 Seconds (21.0-31.0) H 04/03/20 16:00 covid negative test this admission
[2020-04-07] MEDS ORDERED: BUPIVACAINE 0.5 % 5 MG/1 ML MPF 30ML VIAL ONE (08:04)
[2020-04-07] MEDS ORDERED: LIDOCAINE/EPINEPHRINE 1% 20 ML VIAL ONE (08:04)
[2020-04-07] MEDS ORDERED: ATROPINE SULFATE 0.1 MG/ML 10ML SYR IV PRN (08:30)
[2020-04-07] MEDS ORDERED: ONDANSETRON INJ 2 MG/ML 2 ML VIAL IV PRN (08:30)
--- NOTE | 2020-04-07 08:33 | Surgery Progress Note ---
Date of Service April 07, 2020 Assessment & Plan (1) Infection of venous access port: 54-year-old female with presumed port site infection, infectious disease and hospitalist service requesting port removal. INR is 1.3 and her Lovenox has been held. Plan for right chest port removal The risk of the procedure were discussed to include but not limited to bleeding, infection, fracture port, need for future more extensive surgery, failure to treat symptoms, the risk of anesthesia May restart anticoagulation this evening if no evidence of bleeding We will need PICC line, antibiotics per ID Need to wait a few weeks before placing another port due to infection (2) Pulmonary embolism: (3) Metastatic breast cancer: Admission and Anticipated Discharge Date Admission Date: April 03, 2020 Subjective 54-year-old female with metastatic triple negative breast cancer admitted with PEs despite anticoagulation, also with fevers of unknown origin and presumed to be from indwelling port. She did have a fever overnight, cultures remain negative, no other changes. Her INR is 1.3 and she is held her Lovenox. Physical Exam Constitutional: WD/WN, vitals as above Chest (Breasts): Chest: + vascular access device or port Results & Data ([facility]) Vital Signs (Past 12 Hours) Vital Signs Temp Pulse Pulse Resp BP Pulse Ox 04/07/20 07:26 37.6 C H 108 H 18 96/64 L 94 04/07/20 04:30 37.5 C 107 H 20 96/60 L 92 04/06/20 23:16 37.3 C 105 H 20 95/60 L 93 PG Care Time/CCT Total # of Minutes Spent Total Time Spent with Patient: Total time spent is greater than 50% in coordination of care (as documented) at patient's floor/unit and/or counseling patient: Coding Level of Care Code 51384 Inpt Consult Level 3 Diagnoses Infection of venous access port T80.219A Pulmonary embolism I26.99 Acute cor pulmonale presence: unspecified Chronicity: acute Pulmonary embolism type: unspecified Metastatic breast cancer C50.919 (1) Pulmonary embolism Acute cor pulmonale presence: unspecified Chronicity: acute Pulmonary embolism type: unspecified Qualified Code(s): I26.99 - Other pulmonary embolism without acute cor pulmonale
--- NOTE | 2020-04-07 08:34 | Pharmacy Report ---
Pharmacy Abx Dose Short Note - Date of Service April 07, 2020 - Assessment & Plan Assessment 54 year old F receiving VANCOMYCIN + CEFEPIME for treatment of SST/Port infection Day # 5 of antimicrobial therapy. Plan Vancomycin * Random level this morning of 18.6 mcg/mL is therapeutic * Scr inc from 1.45 --> 1.53 mg/dl. Baseline Scr ~ 0.5 mg/dl. Will continue to dose vancomycin based off of random levels. Will redose when random level is in goal trough range. Estimated half life is ~ 24hrs. Will try to transition to scheduled dosing once Scr stabilizes. * Goal trough level for SST/bacteremia : 15 to 20 mcg/mL * Random level ordered for: 04/08/20 w/ AM labs Pharmacy will continue to follow and will adjust dose/frequency as necessary. Thank you.
[2020-04-07] MEDS ORDERED: PHENYLEPHRINE 100MCG/ML 5ML SYR ONE (09:32)
--- NOTE | 2020-04-07 09:35 | Operative Report ---
[facility] Post Operative Report Pre & Post Diagnosis Operation Date: 04/07/20 08:00 Pre-Op Diagnosis: Infection Infusaport Right Post-Op Diagnosis: Infection Infusaport Right I identified the patient and participated in the time-out.: Yes Procedure Operation Date: 04/07/20 08:00 Actual Procedures p Removal Infection Infusaport Right(Right) - Dylan Guerrero DO, FELICIA Surgeon Dylan Guerrero DO, FELICIA Global Position System Technician None Estimated Blood Loss 3 Findings Consistent with Post-Op Diagnosis Port removed intact, pressure held, good hemostasis. Catheter tip sent for culture. Specimens Port Anesthesia Type MAC Complications none Disposition Accompanied Patient To Recovery: No Disposition: Recovery Room Indications 54-year-old female with metastatic breast cancer and indwelling port, admitted for PEs but having fevers of unknown origin, presumed source was port infection. Infectious disease and hospitalist service both agree that removal is in her best interest. Plan for port removal. The risks of the procedure were discussed, all questions were answered, and the patient agreed to proceed with surgery as planned. Description of Procedure The patient was properly identified, consented, and taken to the operating room where she was placed in the supine position. Sedation with monitored anesthesia care was induced. SCDs and a safety belt were placed. Preoperative antibiotics were administered. The patient's right chest and neck was prepped and draped in the standard sterile fashion. Surgical timeout was performed and all parties were in agreement that this was the correct patient and procedure to be performed and we continued as planned. Local anesthetic was injected along the skin incision. A transverse incision was made through the old incision and deepened down through the subcutaneous tissue with electrocautery. The capsule was entered. The port was grasped with a towel clamp. The anchoring sutures were cut. The port was removed, and passed off the table as specimen. Pressure was held for several minutes and hemostasis was good. The catheter tip was sent for specimen. The wound was irrigated and hemostasis was confirmed. The skin was closed with interrupted 3- 0 Vicryl deep dermal sutures, followed by 4-0 Monocryl running subcuticular suture. Dermabond was placed over the wound. The patient was taken to the PACU where she recovered without apparent incident. All sponge, instrument and needle counts were correct at the conclusion of the procedure. The patient tolerated the procedure well. I attest to the content of the Intraoperative Record and any orders documented therein. Any exceptions are noted below.
--- NOTE | 2020-04-07 09:55 | Anesthesiology Progress Note ---
Date of Service April 07, 2020 Anesthesia Post Procedure Vital Signs Vital Signs: Temp Pulse Pulse Pulse Resp BP Pulse Ox 04/07/20 09:45 36.5 C 98 H 14 99/65 L 94 04/07/20 09:37 36.5 C 91 H 14 92/53 L 98 04/07/20 07:26 37.6 C H 108 H 18 96/64 L 94 04/07/20 04:30 37.5 C 107 H 20 96/60 L 92 04/06/20 23:16 37.3 C 105 H 20 95/60 L 93 04/06/20 19:57 37.7 C H 109 H 20 115/75 96 04/06/20 16:00 88 04/06/20 15:03 36.6 C 85 18 101/66 98 04/06/20 11:42 36.9 C 98 H 18 102/68 93 04/06/20 10:35 37.7 C H Pain Intensity Bilateral Chest: Pain Intensity: 6 Transfer of Care Handoff Completed per policy Notes Mental Status: alert / awake / arousable Patient Amnestic to Procedure: Yes Nausea / Vomiting: adequately controlled Pain: adequately controlled Airway Patency, RR, SpO2: stable & adequate BP & HR: stable & adequate Hydration State: stable & adequate Anesthetic Complications: no major complications apparent
[2020-04-07] MEDS ORDERED: VANCOMYCIN HCL 1,000 MG in SODIUM CHLORIDE 0.9% 250 ML IV ONE (10:00)
[2020-04-07] MEDS: MoRPHine SULFATE IR 15 MG TAB (IMMEDIATE RELEASE) PO PRN ×2 (10:37→16:06)
[2020-04-07] MEDS: METHADONE HCL 10 MG TAB PO SCH ×3 (10:38→20:59)
[2020-04-07] MEDS: CEFEPIME 2,000 MG in SYRINGE 0 ML IV SCH ×2 (10:39→21:00)
[2020-04-07] MEDS: PANTOprazole 40 MG TAB PO SCH ×2 (10:39→20:59)
[2020-04-07] MEDS: LIOTHYRONINE SODIUM 5 MCG TAB PO SCH (10:39)
[2020-04-07] MEDS: METHADONE HCL 5 MG TAB PO SCH ×3 (10:39→20:59)
[2020-04-07] MEDS: FAMOTIDINE 20 MG TAB PO SCH ×2 (10:39→20:59)
[2020-04-07] MEDS: RASPBERRY SYRUP 5 ML UDP PO SCH (10:40)
[2020-04-07] MEDS: ADVANCED PROBIOTIC 1250 MG CAPSULE PO SCH (10:40)
[2020-04-07] MEDS: LIDOCAINE 4% CREAM 15 GM TUBE EXT SCH ×3 (10:41→21:01)
[2020-04-07] MEDS: LACTATED RINGER'S 1,000 ML IV SCH ×2 (10:45→18:37)
[2020-04-07] MEDS: VANCOMYCIN HCL 125 MG/2.5ML SOLN PO SCH (11:32)
[2020-04-07] MEDS: BUTALBITAL/ACETAMIN/CAFFEINE TAB PO PRN ×2 (13:39→19:44)
--- NOTE | 2020-04-07 14:36 | Hospitalist Progress Note ---
Date of Service April 07, 2020 Assessment & Plan (1) Pulmonary embolism: Patient is a 54 year old female with PMHx Metastatic breast cancer, Chiari malformation type I, Factor V Leiden deficiency, Hyperlipidemia, that presents with chest pain and dyspnea on exertion which started the night of 04/02/20. Pulmonary Embolism: - On admission with increased work of breathing. - Small segmental PE within the lateral basilar segment of the RLL noted on CT scan. - Venous dopplers negative for DVT or thrombus. - Patient with lupus anticoagulant, Factor V Leiden, current metastatic cancer so at significant risk for clots for several reasons. - Continue therapeutic Lovenox q12h for treatment - Patient had been taking home warfarin 5mg daily with INR goal of 1.5-2 prior to admission now increased to 7.5 mg daily with goal INR between 2 and 3. - Cannot be considered a warfarin failure given previous INR goals, however patient tolerates injection well and will continue Lovenox. - Patient has not needed oxygen and has no respiratory symptoms lying in bed or with ambulation today. Possible port infection vs. periportal cellulitis: - Erythema and pain noted by patient on admission around port site, patient with fevers at home and Tmax 39.2. - WBC elevated to 19 -> 11.5 today, continue vanc/cefepime. - BCx collected on 04/03 negative for bacteria. This included one draw from port site. - Port site non-erythematous but with significant tenderness at the site. - ID consulted; recommend vancomycin IV - General Surgery removed port today - BCx pending LANCE: - Today with creatinine 1.53, baseline 0.8-1.0. - potential contribution from Vanocmycin and Zosyn Systolic Heart Murmur: - Not previously noted in EMR. - Given potential port infection, TTE performed which showed no obvious valvular abnormalities of vegetations. - BCx negative to date as above, unlikely to be vegetation however will repeat BCx. - Consider KARINA Metastatic Breast Cx: - History of metastatic triple negative breast cancer. - L upper lobe known mass with slight in size from 4.1 x 3.1cm to 3.9 x 2.6 cm 3 months prior. - Last chemo 03/26/20 with Neulasta 03/25/20; next chemotherapy scheduled for 04/09. - Current pain regiment with Methadone 10mg TID and IV Tylenol 1000mg TID PRN. - Continue home oxycodone 10 mg TID PRN; morphine 2 mg IV for breakthrough severe pain. - Zofran and Compazine PRN nausea. - Dr. Martinez following, appreciate recommendations. Factor V Deficiency/Antiphospholipid antibody syndrome/ Lupus anticoagulant disorder: - Continue Lovenox as above. GERD: - Continue home Famotidine. - Continue home Pantoprazole. Anxiety: - Continue home Xanax 0.5 mg BID PRN. Hypothyroidism: - Continue home Liothyronine 10mcg daily H/o C. difficile: - continue Vancomycin PO daily for prophylaxis Admission and Anticipated Discharge Date Admission Date: April 03, 2020 Supervising Physician Co-Signing Physician Notes I personally examined the patient and verified all bernardo points of history and exam, discussed case, and agree with decision making with Dr Pérez. feeling good post op eating well vitals noted nad heent nc at mmm. no periport erythema and site not at all tender/minimally tender compared to before presumed port infection - without bacteremia fortunately - but no other source of infection apparent, but fevers/white count/etc strongly suggest infection. on abx - continue for now. port now out. for next ~24hrs abx on peripheral IV - then anticipate PICC for ongoing abx and chemo until new more permanent central access can be placed weight loss/acute protein calorie malnutrition (probably moderate protein, severe calorie given about 40lbs weight loss but albumin 2.4) - discussed nutrition at length and in detail 04/06, reiterated importance 04/07 PE - lovenox. (resume tonight - was held briefly for surgery with no noted sequellae) metastatic breast cancer - ongoing empathy/support/counselling Subjective Patient feels better this afternoon, and remains encouraged that following her surgery that she has been able to eat and drink ok. Was very happy that her was able to drive and sit in the parking lot during her surgery in order to be closer to each other. Has not had fevers since her port was removed. Review of Systems Review of Systems: All systems reviewed & are unremarkable except as noted in Subjective Physical Exam Constitutional: WD/WN, vitals as above Eyes: PERRL, conjunctivae normal, anicteric sclerae ENMT: external ear and nose normal, oropharynx normal Respiratory: no respiratory distress, no labored breathing, no retractions and does not use accessory muscles Skin: incision site from removal of the port appears well approximated, and is non-tender to touch as compared to prior to removal Psychiatric: A+Ox3, euthymic affect Results & Data Results & Data ([facility]) Vital Signs (Past 12 Hours) Vital Signs Temp Pulse Pulse Resp BP Pulse Ox 04/07/20 11:20 102 H 92/57 L 04/07/20 11:16 36.9 C 99 H 18 92/57 L 92 04/07/20 10:51 100 H 92/57 L 04/07/20 10:42 105 H 92/57 L 04/07/20 10:27 102 H 91/65 L 94 04/07/20 09:55 37.0 C 99 H 103/66 92 04/07/20 09:45 36.5 C 98 H 14 99/65 L 94 04/07/20 09:37 36.5 C 91 H 14 92/53 L 98 04/07/20 07:26 37.6 C H 108 H 18 96/64 L 94 04/07/20 04:30 37.5 C 107 H 20 96/60 L 92 Laboratory Results 04/07/20 04/07/20 04/07/20 Range/Units 04:07 04:07 04:07 WBC (4.8-10.8) K/uL RBC (4.2-5.4) M/uL Hgb (12.0-16.0) g/dL Hct (37-47) % MCV (80-100) fL MCH (25-34) pg MCHC (32-36) g/dL RDW Std Deviation (36.4-46.3) fL RDW Coeff of Millie (11.5-14.5) % Plt Count (130-400) K/uL MPV (7.4-10.4) fL Immature Gran % (Auto) % Neut % (Auto) % Lymph % (Auto) % [place] % (Auto) % Eos % (Auto) % Baso % (Auto) % Neut # (Auto) (1.4-6.5) K/uL Lymph # (Auto) (1.2-3.4) K/uL [place] # (Auto) (0.11-0.59) K/uL Eos # (Auto) (0-0.5) K/uL Baso # (Auto) (0-0.2) K/uL Immature Gran # (Auto) (0.00-0.02) K/uL RBC Morphology PT 14.0 H (9.0-12.0) Seconds INR 1.3 H (0.9-1.1) Sodium 138 (136-145) mmol/L Potassium 3.5 (3.5-5.1) mmol/L Chloride 106 (98-107) mmol/L Carbon Dioxide 29 (21-32) mmol/L Anion Gap 3.0 (3-11) BUN 20 H (7-18) mg/dl Creatinine 1.53 H (0.6-1.2) mg/dl Est Cr Clr Drug Dosing 36.9 ml/min Est GFR ( Amer) 43.9 Est GFR (Non-Af Amer) 37.9 BUN/Creatinine Ratio 12.9 (10-20) Glucose 106 H (70-99) mg/dl Calcium 7.9 L (8.5-10.1) mg/dl Random Vancomycin 18.6 mcg/ml COVID-19 Eval Order SARS-CoV-2, RNA, NAAT (NEGATIVE) 04/07/20 04/07/20 04/06/20 Range/Units 04:07 04:07 Unknown WBC 8.91 (4.8-10.8) K/uL RBC 2.77 L (4.2-5.4) M/uL Hgb 7.9 L (12.0-16.0) g/dL Hct 24.1 L (37-47) % MCV 87.0 (80-100) fL MCH 28.5 (25-34) pg MCHC 32.8 (32-36) g/dL RDW Std Deviation 48.5 H (36.4-46.3) fL RDW Coeff of Millie 15.8 H (11.5-14.5) % Plt Count 115 L (130-400) K/uL MPV 10.4 (7.4-10.4) fL Immature Gran % (Auto) 0.2 % Neut % (Auto) 81.6 % Lymph % (Auto) 7.3 % [place] % (Auto) 9.8 % Eos % (Auto) 1.0 % Baso % (Auto) 0.1 % Neut # (Auto) 7.27 H (1.4-6.5) K/uL Lymph # (Auto) 0.65 L (1.2-3.4) K/uL [place] # (Auto) 0.87 H (0.11-0.59) K/uL Eos # (Auto) 0.09 (0-0.5) K/uL Baso # (Auto) 0.01 (0-0.2) K/uL Immature Gran # (Auto) 0.02 (0.00-0.02) K/uL RBC Morphology Unremarkable PT (9.0-12.0) Seconds INR (0.9-1.1) Sodium (136-145) mmol/L Potassium (3.5-5.1) mmol/L Chloride (98-107) mmol/L Carbon Dioxide (21-32) mmol/L Anion Gap (3-11) BUN (7-18) mg/dl Creatinine 1.53 H (0.6-1.2) mg/dl Est Cr Clr Drug Dosing 36.9 ml/min Est GFR ( Amer) 43.9 Est GFR (Non-Af Amer) 37.9 BUN/Creatinine Ratio (10-20) Glucose (70-99) mg/dl Calcium (8.5-10.1) mg/dl Random Vancomycin mcg/ml COVID-19 Eval Order SARS-CoV-2, RNA, NAAT NEGATIVE (NEGATIVE) 04/06/20 04/06/20 Range/Units Unknown 17:44 WBC (4.8-10.8) K/uL RBC (4.2-5.4) M/uL Hgb (12.0-16.0) g/dL Hct (37-47) % MCV (80-100) fL MCH (25-34) pg MCHC (32-36) g/dL RDW Std Deviation (36.4-46.3) fL RDW Coeff of Millie (11.5-14.5) % Plt Count (130-400) K/uL MPV (7.4-10.4) fL Immature Gran % (Auto) % Neut % (Auto) % Lymph % (Auto) % [place] % (Auto) % Eos % (Auto) % Baso % (Auto) % Neut # (Auto) (1.4-6.5) K/uL Lymph # (Auto) (1.2-3.4) K/uL [place] # (Auto) (0.11-0.59) K/uL Eos # (Auto) (0-0.5) K/uL Baso # (Auto) (0-0.2) K/uL Immature Gran # (Auto) (0.00-0.02) K/uL RBC Morphology PT 14.6 H (9.0-12.0) Seconds INR 1.4 H (0.9-1.1) Sodium (136-145) mmol/L Potassium (3.5-5.1) mmol/L Chloride (98-107) mmol/L Carbon Dioxide (21-32) mmol/L Anion Gap (3-11) BUN (7-18) mg/dl Creatinine (0.6-1.2) mg/dl Est Cr Clr Drug Dosing ml/min Est GFR ( Amer) Est GFR (Non-Af Amer) BUN/Creatinine Ratio (10-20) Glucose (70-99) mg/dl Calcium (8.5-10.1) mg/dl Random Vancomycin mcg/ml COVID-19 Eval Order Covid19 IDNow atMMNC SARS-CoV-2, RNA, NAAT (NEGATIVE) Medications Administered Current Inpatient Medications Acetaminophen (Acetaminophen 325 Mg Tab) 650 mg PO Q4H PRN PRN Reason: pain or fever Stop: 05/04/20 16:06 Last Admin: 04/06/20 10:40 Dose: 650 mg Documented by: Acetaminophen/Butalbital/Caffeine (Butalbital/Acetamin/Caffeine Tab) 1 tab PO Q4H PRN PRN Reason: Headache Stop: 05/04/20 13:10 Last Admin: 04/07/20 13:39 Dose: 1 tab Documented by: Alprazolam (Alprazolam 0.5 Mg Tablet) 0.5 mg PO BID PRN PRN Reason: Anxiety Stop: 05/03/20 22:11 Last Admin: 04/06/20 18:57 Dose: 0.5 mg Documented by: Docusate Sodium (Docusate Sodium 100 Mg Cap) 100 mg PO BID PRN PRN Reason: constipation Stop: 05/03/20 22:11 Last Admin: 04/07/20 13:39 Dose: 100 mg Documented by: Enoxaparin Sodium (Enoxaparin Inj 60 Mg/0.6 Ml Syr) 60 mg SQ Q12 [facility] Stop: 05/04/20 08:59 Last Admin: 04/06/20 08:25 Dose: 60 mg Documented by: Famotidine (Famotidine 20 Mg Tab) 20 mg PO BID [facility] Stop: 05/03/20 22:11 Last Admin: 04/07/20 10:39 Dose: 20 mg Documented by: Gabapentin (Gabapentin 300 Mg Cap) 300 mg PO HS [facility] Stop: 05/04/20 20:59 Last Admin: 04/06/20 20:55 Dose: 300 mg Documented by: Cefepime HCl 2,000 mg/ Syringe 20 mls @ 5 mls/min IV Q12 [facility]; Protocol Stop: 04/13/20 10:59 Last Admin: 04/07/20 10:39 Dose: 5 mls/min Documented by: Lactated Ringer's (Lr) 1,000 mls @ 125 mls/hr IV .Q8H [facility] Stop: 05/07/20 08:14 Last Admin: 04/07/20 10:45 Dose: 125 mls/hr Documented by: Lactobacillus Acidoph/Casei/Rhamnos (Advanced Probiotic 1250 Mg Capsule) 2 cap PO DAILY [facility] Stop: 05/04/20 08:59 Last Admin: 04/07/20 10:40 Dose: 2 cap Documented by: Lidocaine (Lidocaine 4% Cream 15 Gm Tube) 1 appln EXT TID [facility] Stop: 05/05/20 20:59 Last Admin: 04/07/20 10:41 Dose: 1 appln Documented by: Liothyronine Sodium (Liothyronine Sodium 5 Mcg Tab) 10 mcg PO QAM [facility] Stop: 05/04/20 08:59 Last Admin: 04/07/20 10:39 Dose: 10 mcg Documented by: Methadone HCl (Methadone Hcl 10 Mg Tab) 10 mg PO TID [facility] Stop: 04/19/20 20:59 Last Admin: 04/07/20 10:38 Dose: 10 mg Documented by: Methadone HCl (Methadone Hcl 5 Mg Tab) 2.5 mg PO TID [facility] Stop: 04/19/20 20:59 Last Admin: 04/07/20 10:39 Dose: 2.5 mg Documented by: Miscellaneous Information (Vancomycin Consult Active) 1 ea N/A UD PRN PRN Reason: Consult Stop: 05/03/20 19:09 Miscellaneous Information (Cefepime Consult Active) 1 ea N/A UD PRN PRN Reason: Consult Stop: 05/06/20 10:19 Morphine Sulfate (Morphine Sulfate 4 Mg/Ml 1 Ml Carp\Vial) 4 mg IV Q3H PRN PRN Reason: Pain Stop: 04/18/20 18:58 Last Admin: 04/06/20 18:57 Dose: 4 mg Documented by: Morphine Sulfate (Morphine Sulfate Ir 15 Mg Tab (Immediate Release)) 22.5 mg PO Q4H PRN PRN Reason: Pain Stop: 04/19/20 16:03 Last Admin: 04/07/20 10:37 Dose: 22.5 mg Documented by: Ondansetron HCl (Ondansetron Inj 2 Mg/Ml 2 Ml Vial) 4 mg IV Q6H PRN PRN Reason: Nausea Stop: 05/03/20 22:11 Last Admin: 04/06/20 15:33 Dose: 4 mg Documented by: Pantoprazole Sodium (Pantoprazole 40 Mg Tab) 40 mg PO BID [facility] Stop: 05/03/20 22:11 Last Admin: 04/07/20 10:39 Dose: 40 mg Documented by: Prochlorperazine (Prochlorperazine Maleate 10 Mg Tab) 10 mg PO Q6H PRN PRN Reason: Nausea And Vomiting Stop: 05/03/20 22:11 Last Admin: 04/06/20 19:30 Dose: 10 mg Documented by: Raspberry (Raspberry Syrup 5 Ml Udp) 5 ml PO QAM [facility] Stop: 04/22/20 08:59 Raspberry (Raspberry Syrup 5 Ml Udp) 5 ml PO ONE ONE Stop: 04/07/20 14:46 Vancomycin HCl (Vancomycin Hcl 125 Mg/2.5ml Soln) 125 mg PO QAM [facility] Stop: 04/18/20 08:59 Vancomycin HCl (Vancomycin Hcl 125 Mg/2.5ml Soln) 125 mg PO ONE ONE Stop: 04/07/20 14:46 Resident Activity Tracking Resident Involvement: Resident Care Provided Care Provided: Adult Hospital Medicine (1) Pulmonary embolism Acute cor pulmonale presence: unspecified Chronicity: acute Pulmonary embolism type: unspecified Qualified Code(s): I26.99 - Other pulmonary embolism without acute cor pulmonale
[2020-04-07] MEDS ORDERED: RASPBERRY SYRUP 5 ML UDP PO ONE (14:45)
[2020-04-07] MEDS ORDERED: VANCOMYCIN HCL 125 MG/2.5ML SOLN PO ONE (14:45)
--- NOTE | 2020-04-07 18:00 | Billing Data ---
Date of Service April 07, 2020 Coding Level of Care Code 56494 Subseq Hosp Care Lvl 3
[2020-04-07] MEDS: GABAPENTIN 300 MG CAP PO SCH (20:59)
[2020-04-07] MEDS: ENOXAPARIN INJ 60 MG/0.6 ML SYR SQ SCH (21:13)
[2020-04-08] MEDS: MoRPHine SULFATE 4 MG/ML 1 ML CARP\\VIAL IV PRN (02:49)
[2020-04-08] MEDS: LACTATED RINGER'S 1,000 ML IV SCH ×2 (02:49→10:57)
[2020-04-08] MEDS: LIOTHYRONINE SODIUM 5 MCG TAB PO SCH (08:04)
[2020-04-08] MEDS: ADVANCED PROBIOTIC 1250 MG CAPSULE PO SCH (08:04)
[2020-04-08] MEDS: FAMOTIDINE 20 MG TAB PO SCH ×2 (08:04→20:53)
[2020-04-08] MEDS: PANTOprazole 40 MG TAB PO SCH ×2 (08:04→20:53)
[2020-04-08] MEDS: RASPBERRY SYRUP 5 ML UDP PO SCH (08:05)
[2020-04-08] MEDS: LIDOCAINE 4% CREAM 15 GM TUBE EXT SCH ×3 (08:05→20:53)
--- NOTE | 2020-04-08 08:08 | Surgery Progress Note ---
Date of Service April 08, 2020 Assessment & Plan (1) Infection of venous access port: POD#1 removal of mediport Afebrile and VSS Surgical incision c/d/i without signs of infection Blood and port cultures remain pending Hospitalists planning on PICC line insertion for IV abx Can follow up with Dr. Sevilla or Dr. Guerrero in clinic for consideration of port re-insertion within a couple weeks We will sign off, please call with questions/concerns Admission and Anticipated Discharge Date Admission Date: April 03, 2020 Supervising Physician Co-Signing Physician Notes Patient seen and examined, agree with above. POD #1 port removal for question of infected port. Feeling well, some tenderness at incision site. On exam no evidence of infection, incision healing well. PICC line and IV antibiotics per infectious disease and medicine team. She can follow-up in a few weeks to have discussion for new port placement. Surgery will sign off. Subjective Patient states she is feeling well. Denies any fevers since port removal. Does report some expected tenderness around surgical site. Physical Exam Physical Exam: awake/alert Respiratory: normal respiratory effort Skin: R chest incision c/d/i without signs of infection Results & Data ([facility]) Vital Signs (Past 12 Hours) Vital Signs Temp Pulse Pulse Resp BP Pulse Ox 04/08/20 07:27 37.3 C 96 H 20 95/62 L 94 04/08/20 02:41 37.0 C 115 H 18 98/66 L 94 04/08/20 00:00 94 H 04/07/20 23:05 37 C 94 H 16 95/65 L 94 PG Care Time/CCT Total # of Minutes Spent Total Time Spent with Patient: Total time spent is greater than 50% in coordination of care (as documented) at patient's floor/unit and/or counseling patient: Coding Level of Care Code None Diagnoses Infection of venous access port T80.219A
[2020-04-08] MEDS: METHADONE HCL 5 MG TAB PO SCH ×3 (08:10→20:52)
[2020-04-08] MEDS: CEFEPIME 2,000 MG in SYRINGE 0 ML IV SCH (08:10)
[2020-04-08] MEDS: VANCOMYCIN HCL 125 MG/2.5ML SOLN PO SCH (08:10)
[2020-04-08] MEDS: METHADONE HCL 10 MG TAB PO SCH ×3 (08:10→20:52)
[2020-04-08 08:33] LABS: Basophils # (auto) 0.01 K/uL (0-0.2); Basophils % (auto) 0.1 %; Eosinophils # (auto) 0.14 K/uL (0-0.5); Eosinophils % (auto) 1.6 %; Hematocrit (blood only) 23.3 % (37-47); Hemoglobin 7.8 g/dL (12.0-16.0); Immature Granulocytes # (auto) 0.01 K/uL (0.00-0.02); Immature Granulocytes % (auto) 0.1 %; Lymphocytes # (auto) 0.52 K/uL (1.2-3.4); Lymphocytes % (auto) 6.1 %; Mean Corpuscular Hemoglobin 29.3 pg (25-34); Mean Corpuscular Hgb Conc 33.5 g/dL (32-36); Mean Corpuscular Volume 87.6 fL (80-100); Mean Platelet Volume 10.8 fL (7.4-10.4); Monocytes # (auto) 0.68 K/uL (0.11-0.59); Neutrophils # (auto) 7.18 K/uL (1.4-6.5); Neutrophils % (auto) 84.1 %; Platelet Count 156 K/uL (130-400); RDW Standard Deviation 49.3 fL (36.4-46.3); Red Blood Count 2.66 M/uL (4.2-5.4); White Blood Count 8.54 K/uL (4.8-10.8)
[2020-04-08 08:47] LABS: BUN Creatinine Ratio 12.6 (10-20); Calcium 8.5 mg/dl (8.5-10.1); Creatinine Clr Calc Pharmacy 40.1 ml/min; Est GFR (African American) 47.3; Est GFR (Non-African American) 40.8; Potassium 3.7 mmol/L (3.5-5.1)
[2020-04-08] MEDS: VANCOMYCIN HCL 1,250 MG in SODIUM CHLORIDE 0.9% 250 ML IV SCH (10:56)
[2020-04-08] MEDS: ENOXAPARIN INJ 60 MG/0.6 ML SYR SQ SCH ×2 (11:05→20:52)
--- NOTE | 2020-04-08 13:14 | Hospitalist Progress Note ---
Date of Service April 08, 2020 Assessment & Plan (1) Pulmonary embolism: Patient is a 54 year old female with PMHx Metastatic breast cancer, Chiari malformation type I, Factor V Leiden deficiency, Hyperlipidemia, that presents with chest pain and dyspnea on exertion which started the night of 04/02/20. Pulmonary Embolism: - On admission with increased work of breathing. - Small segmental PE within the lateral basilar segment of the RLL noted on CT scan. - Venous dopplers negative for DVT or thrombus. - Patient with lupus anticoagulant, Factor V Leiden, current metastatic cancer so at significant risk for clots for several reasons. - Continue therapeutic Lovenox q12h for treatment - Patient had been taking home warfarin 5mg daily with INR goal of 1.5-2 prior to admission now increased to 7.5 mg daily with goal INR between 2 and 3. - Cannot be considered a warfarin failure given previous INR goals, however patient tolerates injection well and will continue Lovenox. - Patient has not needed oxygen and has no respiratory symptoms lying in bed or with ambulation today. Possible port infection vs. periportal cellulitis: - Erythema and pain noted by patient on admission around port site, patient with fevers at home and Tmax 39.2. - WBC elevated to 19 downtrending to date - BCx collected on 04/03 negative for bacteria. This included one draw from port site. - Port site non-erythematous but with significant tenderness at the site. - ID consulted; recommend vancomycin IV - General Surgery removed port; port tip sent for culture - BCx negative to date - discontinue Cefepime - continue IV Vancomycin LANCE: - Today with creatinine 1.44, baseline 0.8-1.0. - potential contribution from Vanocmycin and Zosyn Systolic Heart Murmur: - Not previously noted in EMR. - Given potential port infection, TTE performed which showed no obvious valvular abnormalities of vegetations. - BCx negative to date as above, unlikely to be vegetation however repeat Blood cultures pending Metastatic Breast Cx: - History of metastatic triple negative breast cancer. - L upper lobe known mass with slight in size from 4.1 x 3.1cm to 3.9 x 2.6 cm 3 months prior. - Last chemo 03/26/20 with Neulasta 03/25/20; next chemotherapy scheduled for 04/09. - Current pain regiment with Methadone 10mg TID and IV Tylenol 1000mg TID PRN. - Continue home oxycodone 10 mg TID PRN; morphine 2 mg IV for breakthrough severe pain. - Zofran and Compazine PRN nausea. - Dr. Martinez following, appreciate recommendations. - Consented for PICC, to be placed tomorrow Factor V Deficiency/Antiphospholipid antibody syndrome/ Lupus anticoagulant disorder: - Continue Lovenox as above. GERD: - Continue home Famotidine. - Continue home Pantoprazole. Anxiety: - Continue home Xanax 0.5 mg BID PRN. Hypothyroidism: - Continue home Liothyronine 10mcg daily H/o C. difficile: - continue Vancomycin PO daily for prophylaxis Admission and Anticipated Discharge Date Admission Date: April 03, 2020 Supervising Physician Co-Signing Physician Notes I personally examined the patient and verified all bernardo points of history and exam, discussed case, and agree with decision making with Dr Pérez. feeling better. no f/c/s or aches. port site just incisional tenderness but prior pain now gone. vitals noted nad heent nc at mmm. skin no rashes no pallor or icterus. neuro no focal deficits presumed port infection - without bacteremia fortunately - but no other source of infection apparent, but fevers/white count/etc strongly suggest infection. on abx - continue for now. port now out. awaiting formal ID recs for ongoing abx course and duration from thursday's consult (asked for it to be scanned in) - PICC line in and then will ask case management to work on setup for home weight loss/acute protein calorie malnutrition (probably moderate protein, severe calorie given about 40lbs weight loss but albumin 2.4) - discussed nutrition at length and in detail 04/06, reiterated importance 04/07 and today PE - lovenox. metastatic breast cancer - ongoing empathy/support/counselling Subjective Patient overall feeling well this morning, has not had fevers since removal of her port. Noted some tenderness over the incision site but this has improved throughout the day. Review of Systems Review of Systems: All systems reviewed & are unremarkable except as noted in Subjective Physical Exam Constitutional: WD/WN, vitals as above Eyes: PERRL, conjunctivae normal, anicteric sclerae ENMT: external ear and nose normal, oropharynx normal Respiratory: no respiratory distress, no labored breathing, no retractions and does not use accessory muscles Skin: well approximated surgical incision over old port site, tender along inferior margin, no surrounding erythema, inflammation Psychiatric: A+Ox3, euthymic affect Results & Data Results & [facility] ([facility]) Vital Signs (Past 12 Hours) Vital Signs Temp Pulse Pulse Resp BP Pulse Ox 04/08/20 07:35 94 H 04/08/20 07:27 37.3 C 96 H 20 95/62 L 94 04/08/20 02:41 37.0 C 115 H 18 98/66 L 94 Laboratory Results 04/08/20 04/08/20 04/08/20 Range/Units 08:13 08:13 08:13 WBC 8.54 (4.8-10.8) K/uL RBC 2.66 L (4.2-5.4) M/uL Hgb 7.8 L (12.0-16.0) g/dL Hct 23.3 L (37-47) % MCV 87.6 (80-100) fL MCH 29.3 (25-34) pg MCHC 33.5 (32-36) g/dL RDW Std Deviation 49.3 H (36.4-46.3) fL RDW Coeff of Millie 16.0 H (11.5-14.5) % Plt Count 156 (130-400) K/uL MPV 10.8 H (7.4-10.4) fL Immature Gran % (Auto) 0.1 % Neut % (Auto) 84.1 % Lymph % (Auto) 6.1 % [place] % (Auto) 8.0 % Eos % (Auto) 1.6 % Baso % (Auto) 0.1 % Neut # (Auto) 7.18 H (1.4-6.5) K/uL Lymph # (Auto) 0.52 L (1.2-3.4) K/uL [place] # (Auto) 0.68 H (0.11-0.59) K/uL Eos # (Auto) 0.14 (0-0.5) K/uL Baso # (Auto) 0.01 (0-0.2) K/uL Immature Gran # (Auto) 0.01 (0.00-0.02) K/uL Sodium 138 (136-145) mmol/L Potassium 3.7 (3.5-5.1) mmol/L Chloride 106 (98-107) mmol/L Carbon Dioxide 25 (21-32) mmol/L Anion Gap 7.0 (3-11) BUN 18 (7-18) mg/dl Creatinine 1.44 H (0.6-1.2) mg/dl Est Cr Clr Drug Dosing 40.1 ml/min Est GFR ( Amer) 47.3 Est GFR (Non-Af Amer) 40.8 BUN/Creatinine Ratio 12.6 (10-20) Glucose 180 H (70-99) mg/dl Calcium 8.5 (8.5-10.1) mg/dl Random Vancomycin 14.7 mcg/ml Medications Administered Current Inpatient Medications Acetaminophen (Acetaminophen 325 Mg Tab) 650 mg PO Q4H PRN PRN Reason: pain or fever Stop: 05/04/20 16:06 Last Admin: 04/06/20 10:40 Dose: 650 mg Documented by: Acetaminophen/Butalbital/Caffeine (Butalbital/Acetamin/Caffeine Tab) 1 tab PO Q4H PRN PRN Reason: Headache Stop: 05/04/20 13:10 Last Admin: 04/07/20 19:44 Dose: 1 tab Documented by: Alprazolam (Alprazolam 0.5 Mg Tablet) 0.5 mg PO BID PRN PRN Reason: Anxiety Stop: 05/03/20 22:11 Last Admin: 04/06/20 18:57 Dose: 0.5 mg Documented by: Docusate Sodium (Docusate Sodium 100 Mg Cap) 100 mg PO BID PRN PRN Reason: constipation Stop: 05/03/20 22:11 Last Admin: 04/07/20 13:39 Dose: 100 mg Documented by: Enoxaparin Sodium (Enoxaparin Inj 60 Mg/0.6 Ml Syr) 60 mg SQ Q12 [facility] Stop: 05/04/20 08:59 Last Admin: 04/08/20 11:05 Dose: 60 mg Documented by: Famotidine (Famotidine 20 Mg Tab) 20 mg PO BID [facility] Stop: 05/03/20 22:11 Last Admin: 04/08/20 08:04 Dose: 20 mg Documented by: Gabapentin (Gabapentin 300 Mg Cap) 300 mg PO HS [facility] Stop: 05/04/20 20:59 Last Admin: 04/07/20 20:59 Dose: 300 mg Documented by: Lactated Ringer's (Lr) 1,000 mls @ 50 mls/hr IV .Q20H [facility] Stop: 05/07/20 08:14 Last Admin: 04/08/20 10:57 Dose: 50 mls/hr Documented by: Vancomycin HCl 1,250 mg/ (Sodium Chloride) 275 mls @ 200 mls/hr IV DAILY@1000 [facility] Stop: 04/15/20 09:59 Last Infusion: 04/08/20 12:22 Dose: Infused Documented by: Lactobacillus Acidoph/Casei/Rhamnos (Advanced Probiotic 1250 Mg Capsule) 2 cap PO DAILY [facility] Stop: 05/04/20 08:59 Last Admin: 04/08/20 08:04 Dose: 2 cap Documented by: Lidocaine (Lidocaine 4% Cream 15 Gm Tube) 1 appln EXT TID [facility] Stop: 05/05/20 20:59 Last Admin: 04/08/20 14:54 Dose: 1 appln Documented by: Liothyronine Sodium (Liothyronine Sodium 5 Mcg Tab) 10 mcg PO QAM [facility] Stop: 05/04/20 08:59 Last Admin: 04/08/20 08:04 Dose: 10 mcg Documented by: Methadone HCl (Methadone Hcl 10 Mg Tab) 10 mg PO TID [facility] Stop: 04/19/20 20:59 Last Admin: 04/08/20 14:53 Dose: 10 mg Documented by: Methadone HCl (Methadone Hcl 5 Mg Tab) 2.5 mg PO TID [facility] Stop: 04/19/20 20:59 Last Admin: 04/08/20 14:53 Dose: 2.5 mg Documented by: Miscellaneous Information (Vancomycin Consult Active) 1 ea N/A UD PRN PRN Reason: Consult Stop: 05/03/20 19:09 Morphine Sulfate (Morphine Sulfate 4 Mg/Ml 1 Ml Carp\Vial) 4 mg IV Q3H PRN PRN Reason: Pain Stop: 04/18/20 18:58 Last Admin: 04/08/20 02:49 Dose: 4 mg Documented by: Morphine Sulfate (Morphine Sulfate Ir 15 Mg Tab (Immediate Release)) 22.5 mg PO Q4H PRN PRN Reason: Pain Stop: 04/19/20 16:03 Last Admin: 04/07/20 16:06 Dose: 22.5 mg Documented by: Ondansetron HCl (Ondansetron Inj 2 Mg/Ml 2 Ml Vial) 4 mg IV Q6H PRN PRN Reason: Nausea Stop: 05/03/20 22:11 Last Admin: 04/06/20 15:33 Dose: 4 mg Documented by: Pantoprazole Sodium (Pantoprazole 40 Mg Tab) 40 mg PO BID [facility] Stop: 05/03/20 22:11 Last Admin: 04/08/20 08:04 Dose: 40 mg Documented by: Prochlorperazine (Prochlorperazine Maleate 10 Mg Tab) 10 mg PO Q6H PRN PRN Reason: Nausea And Vomiting Stop: 05/03/20 22:11 Last Admin: 04/06/20 19:30 Dose: 10 mg Documented by: Raspberry (Raspberry Syrup 5 Ml Udp) 5 ml PO QAM [facility] Stop: 04/22/20 08:59 Last Admin: 04/08/20 08:05 Dose: Not Given Documented by: Vancomycin HCl (Vancomycin Hcl 125 Mg/2.5ml Soln) 125 mg PO QAM [facility] Stop: 04/18/20 08:59 Last Admin: 04/08/20 08:10 Dose: 125 mg Documented by: Resident Activity Tracking Resident Involvement: Resident Care Provided Care Provided: Adult Hospital Medicine (1) Pulmonary embolism Acute cor pulmonale presence: unspecified Chronicity: acute Pulmonary embolism type: unspecified Qualified Code(s): I26.99 - Other pulmonary embolism without acute cor pulmonale
--- NOTE | 2020-04-08 18:20 | Billing Data ---
Date of Service April 08, 2020 Coding Level of Care Code 85184 Subseq Hosp Care Lvl 3
[2020-04-08] MEDS: GABAPENTIN 300 MG CAP PO SCH (20:52)
[2020-04-09] MEDS: ONDANSETRON INJ 2 MG/ML 2 ML VIAL IV PRN ×4 (02:26→19:19)
[2020-04-09] MEDS: BUTALBITAL/ACETAMIN/CAFFEINE TAB PO PRN ×3 (02:30→20:58)
[2020-04-09 07:12] LABS: Basophils # (auto) 0.02 K/uL (0-0.2); Basophils % (auto) 0.3 %; Eosinophils # (auto) 0.22 K/uL (0-0.5); Eosinophils % (auto) 3.2 %; Hematocrit (blood only) 23.7 % (37-47); Hemoglobin 7.7 g/dL (12.0-16.0); Immature Granulocytes # (auto) 0.02 K/uL (0.00-0.02); Immature Granulocytes % (auto) 0.3 %; Lymphocytes # (auto) 0.79 K/uL (1.2-3.4); Lymphocytes % (auto) 11.5 %; Mean Corpuscular Hemoglobin 28.8 pg (25-34); Mean Corpuscular Hgb Conc 32.5 g/dL (32-36); Mean Corpuscular Volume 88.8 fL (80-100); Mean Platelet Volume 10.8 fL (7.4-10.4); Monocytes # (auto) 0.86 K/uL (0.11-0.59); Monocytes % (auto) 12.6 %; Neutrophils # (auto) 4.93 K/uL (1.4-6.5); Neutrophils % (auto) 72.1 %; Platelet Count 184 K/uL (130-400); RDW Coefficient of Variation 16.4 % (11.5-14.5); RDW Standard Deviation 49.9 fL (36.4-46.3); Red Blood Count 2.67 M/uL (4.2-5.4); White Blood Count 6.84 K/uL (4.8-10.8)
[2020-04-09 07:49] LABS: BUN Creatinine Ratio 12.2 (10-20); Calcium 8.7 mg/dl (8.5-10.1); Creatinine Clr Calc Pharmacy 40.2 ml/min; Est GFR (African American) 47.3; Est GFR (Non-African American) 40.8; Magnesium 2.3 mg/dl (1.8-2.4); Phosphorus 3.7 mg/dl (2.5-4.9); Potassium 3.9 mmol/L (3.5-5.1)
[2020-04-09 08:00] LABS: RBC Morphology Unremarkable
[2020-04-09] MEDS: ALPRAZolam 0.5 MG TABLET PO PRN (08:00)
[2020-04-09] MEDS: RASPBERRY SYRUP 5 ML UDP PO SCH (08:49)
[2020-04-09] MEDS: LIOTHYRONINE SODIUM 5 MCG TAB PO SCH (08:50)
[2020-04-09] MEDS: METHADONE HCL 5 MG TAB PO SCH ×3 (08:50→20:57)
[2020-04-09] MEDS: ADVANCED PROBIOTIC 1250 MG CAPSULE PO SCH (08:50)
[2020-04-09] MEDS: PANTOprazole 40 MG TAB PO SCH ×2 (08:50→21:17)
[2020-04-09] MEDS: LIDOCAINE 4% CREAM 15 GM TUBE EXT SCH ×3 (08:50→21:16)
[2020-04-09] MEDS: VANCOMYCIN HCL 125 MG/2.5ML SOLN PO SCH (08:50)
[2020-04-09] MEDS: METHADONE HCL 10 MG TAB PO SCH ×3 (08:50→20:57)
[2020-04-09] MEDS: FAMOTIDINE 20 MG TAB PO SCH ×2 (08:50→20:58)
[2020-04-09] MEDS: ENOXAPARIN INJ 60 MG/0.6 ML SYR SQ SCH ×2 (08:51→20:58)
[2020-04-09] MEDS: VANCOMYCIN HCL 1,250 MG in SODIUM CHLORIDE 0.9% 250 ML IV SCH (10:58)
--- NOTE | 2020-04-09 11:16 | Discharge Summary ---
Date of Service April 09, 2020 Admission HPI Per Admitting Provider Patient is a 54 year old female with PMHx Metastatic breast cancer, Chiari malformation type I, Factor V Leiden deficiency, Hyperlipidemia, that presents with history of 1 day duration of chest pain which started the night of 04/02/20. Patient notes that she was laying in bed at home the night prior whenever she started having 10/10 sharp chest pain that primarily occurred with deep inspiration. She also noted of having fevers of 100.6F which would not resolve with Tylenol use. She had presented to the cancer center for her concerns and it was felt that her fever may be secondary to her recent chemotherapy treatment (8 days ago) and Neulasta treatment (7 days ago). They were concerned though of patients sudden onset of pleuritic like chest pain, however, and she was sent for CT scan which revealed a pulmonary embolus in her lateral basilar segment of the right lower lobe. Of note, patient also states that for the past 1 day she has noted worsening discomfort with her R sided port (placed 01/17-) and that the port itself had been erythematous at one point. She also notes a small scabbed lesion cephalad to the port noting that it had appeared secondary to a "hair stabbing me." She states that she has not missed any of her Warfarin doses and that she has been primarily aiming to keep her INR between 1.5-2.0. She has been taking Warfarin 5mg daily. Currently patient notes that her primary issue is regarding her L sided stabbing chest pain that she notes is a 5/10 underlying her L breast when she takes a deep breath. She states that the breast itself "always appear red and tender," though not more-so today than other days. She does state that the nipple is typically more of a yellow coloration, however, the past day has become more red. Med Hx: Metastatic breast Cx, Factor V Leiden deficiency, Lupus anticoagulant disorder, antiphospholipid antibody syndrome, HLD, hypothyroidism Fam Hx: Mother Breast cx, Grandmother Breast cx Social: History smoking 1/2-1PPD quit Dec 26, 2019, 1-2 alcoholic beverages yearly, no illicit drug use. Discharge Data Allergies Allergy/AdvReac Type Severity Reaction Status Date / Time hydrocodone [From Lortab] Allergy Severe Headache Verified 04/03/20 16:37 adhesive Allergy Unknown Rash Verified 04/03/20 16:37 methocarbamol [From Robaxin] Allergy Unknown Unknown Verified 04/03/20 16:37 povidone Allergy Unknown Blisters Verified 04/03/20 16:42 povidone-iodine Allergy Unknown Blisters Verified 04/03/20 16:42 [From Betadine] propoxyphene [From Darvon] Allergy Unknown Headache Verified 04/03/20 16:37 soap [From Betadine] Allergy Unknown Blisters Verified 04/03/20 16:42 codeine AdvReac Intermediate Severe Verified 04/03/20 16:37 headache, nausea Consultations 04/03/20 16:14 ED Decision to Admit Stat 04/03/20 22:12 Consult Palliative Care Routine 04/04/20 07:48 Consult Oncology Routine 04/05/20 14:23 Consult Infectious Diseases Routine 04/06/20 14:51 Consult General Surgery Routine 04/08/20 08:33 Consult Health Information Management Routine Procedures Performed Operation Date: 04/07/20 08:00 Actual Procedures p Removal Infection Infusaport Right(Right) - Dylan Guerrero DO, FACS Ordered Studies 04/03/20 15:43 US venous doppler [facility] Hospital Course (1) Pulmonary embolism: Patient is a 54 year old female with PMHx Metastatic breast cancer, Chiari malformation type I, Factor V Leiden deficiency, Hyperlipidemia, that presents with chest pain and dyspnea on exertion which started the night of 04/02/20. Pulmonary Embolism: - On admission with increased work of breathing. - Small segmental PE within the lateral basilar segment of the RLL noted on CT scan. - Venous dopplers negative for DVT or thrombus. - Patient with lupus anticoagulant, Factor V Leiden, current metastatic cancer so at significant risk for clots for several reasons. - Continue therapeutic Lovenox q12h for treatment - Patient had been taking home warfarin 5mg daily with INR goal of 1.5-2 prior to admission now increased to 7.5 mg daily with goal INR between 2 and 3. - Cannot be considered a warfarin failure given previous INR goals, however patient tolerates injection well and will continue Lovenox. - Patient has not needed oxygen and has no respiratory symptoms lying in bed or with ambulation today. Possible port infection vs. periportal cellulitis: - Erythema and pain noted by patient on admission around port site, patient with fevers at home and Tmax 39.2. - WBC elevated to 19 downtrending to date - BCx collected on 04/03 negative for bacteria. This included one draw from port site. - Port site non-erythematous but with significant tenderness at the site. - ID consulted; recommend vancomycin IV - General Surgery removed port; port tip sent for culture - BCx negative to date - discontinue Cefepime - continue IV Vancomycin LANCE: - Today with creatinine 1.44, baseline 0.8-1.0. - potential contribution from Vanocmycin and Zosyn Systolic Heart Murmur: - Not previously noted in EMR. - Given potential port infection, TTE performed which showed no obvious valvular abnormalities of vegetations. - BCx negative to date as above, unlikely to be vegetation however repeat Blood cultures pending Metastatic Breast Cx: - History of metastatic triple negative breast cancer. - L upper lobe known mass with slight in size from 4.1 x 3.1cm to 3.9 x 2.6 cm 3 months prior. - Last chemo 03/26/20 with Neulasta 03/25/20; next chemotherapy scheduled for 04/09. - Current pain regiment with Methadone 10mg TID and IV Tylenol 1000mg TID PRN. - Continue home oxycodone 10 mg TID PRN; morphine 2 mg IV for breakthrough severe pain. - Zofran and Compazine PRN nausea. - Dr. Martinez following, appreciate recommendations. - Consented for PICC, to be placed tomorrow Factor V Deficiency/Antiphospholipid antibody syndrome/ Lupus anticoagulant disorder: - Continue Lovenox as above. GERD: - Continue home Famotidine. - Continue home Pantoprazole. Anxiety: - Continue home Xanax 0.5 mg BID PRN. Hypothyroidism: - Continue home Liothyronine 10mcg daily H/o C. difficile: - continue Vancomycin PO daily for prophylaxis Discharge Plan Discharge Items Patient Disposition: Home - Self-Care Reason For Visit: PE Discharge Diagnosis: Pulmonary Embolism, Infected Port Condition on Discharge: Good Activity: Resume your previous activity Non-emergency contact: Primary Care Provider and Oncologist Call non-emergency contact if: you have any medication questions, your wound has increased redness, your wound has increased drainage and your wound pain has increased Follow-up/Referrals: Anderson Sevilla MD [Surgeon] - Akbar Francisco Jr, DO [Primary Care Provider] - Diet: Regular Addtl Attending Provider Instructions: You were evaluated in the hospital for chest pain and shortness of breath found to be due to a small segmental pulmonary embolus that was found on CT imaging of your chest. Because you were on warfarin when this happened and have positive antiphospholipid antibodies, factor V Leiden deficinecy and metastatic cancer, you have a higher risk of clot formation. Thus, you were switched to a higher dose Lovenox shots twice a day. You will continue these shots at home, 60 mg Lovenox twice a day. Ultrasound of your legs showed no evidence of clots in your legs as a source of your clot formation. During your stay it was noted that you were having fevers with significant tenderness and redness surrounding your port site. It was determined that the port was most likely the source of infection a nd the port was removed by general surgery. You were treated with 6 days total of gram negative coverage antibiotics, as well as vancomycin for gram positive coverage after discussion with our infectious disease team. You will finish out one more day of oral vancomycin (04/10) to help prevent C diff infection. Your blood cultures were all negative for infection. We discussed avoiding the water pill to take off fluid from your legs because of your lower blood pressures which is likely orthostatic hypotension. We recommend frequent calf exercises and walking to help your legs "push" the fluid up your bloodstream to be removed naturally. This may take some time but will not have the risk of lightheadedness, dizziness and falls like the pills would. Pending Studies at Discharge: No Stand-Alone Forms: [facility], Smoking Cessation Medications and DC Order Prescriptions: No Action cyclobenzaprine 10 mg tablet 10 mg PO TID PRN (Reason: Muscle Spasm) RF: 0 [id number] [Fioricet] 50-300-40 mg capsule 1 cap PO Q4H PRN (Reason: Migraine Headache) RF: 0 liothyronine [Cytomel] 5 mcg tablet 10 mcg PO QAM RF: 0 simvastatin [Zocor] 40 mg tablet 40 mg PO QPM RF: 0 oxycodone-acetaminophen [Percocet] 5-325 mg tablet 1 tab PO Q4H PRN (Reason: Pain) RF: 0 methadone [Dolophine] 10 mg tablet 10 mg PO TID RF: 0 zolpidem [Ambien CR] 12.5 mg tablet,ext release multiphase 12.5 mg PO DAILY PRN (Reason: Insomnia) RF: 0 warfarin 5 mg tablet 5 mg PO DAILY RF: 0 ondansetron HCl 8 mg tablet 4 - 8 mg PO Q8H PRN (Reason: Nausea And Vomiting) RF: 0 diclofenac sodium 1 % gel 2 g topical QID PRN (Reason: Pain) RF: 0 alprazolam 0.5 mg tablet 0.5 mg PO BID PRN (Reason: Anxiety) RF: 0 dexamethasone 4 mg tablet 20 mg PO DIRECTED PRN (Reason: Chemo Treatment) RF: 0 famotidine 20 mg tablet 20 mg PO BID RF: 0 oxycodone 10 mg tablet 10 mg PO DIRECTED PRN (Reason: Pain) RF: 0 pantoprazole 40 mg tablet,delayed release (DR/EC) 40 mg PO BID RF: 0 Advanced Probiotic 625 mg (10 billion cell) capsule 2 cap PO DAILY PRN (Reason: When on Antibiotics) RF: 0 prochlorperazine maleate 10 mg tablet 10 mg PO Q6H PRN (Reason: Nausea And Vomiting) RF: 0 Krames/Other Patient Handouts: Embolism Pulmonary Dc Admission Data Admit Date/Time: 04/03/20 18:39 Attending Provider: Daria Christie Admit Provider: Jorge L Tidwell Primary Care Provider: Akbar Francisco Jr Other Providers: Fabricio Fernandez ; Bryant Iyer ; Luly Peralta ; Rodri Martinez V. ; Baldev Carter ; Jr Loyola ; Storm Aguilar I. ; Uriel Ramirez II ; Claudette Delgado ; Martín Valdez ; Anderson Sevilla ; Pankaj Taylor ; Vicky Gaona
--- NOTE | 2020-04-09 14:30 | Palliative Care Progress Note ---
Date of Service April 09, 2020 Assessment & Plan (1) Chest pain: with metastatic breast cancer. Using prn morphine about twice a day. She has said that she holds off on taking it sometimes because she doesn't want full dose. Will decrease to 15mg for moderated pain. Overall pain is improved with methadone, gabapentin and topical lidocaine. Continue current regimen. She will f/u with palliative care as an outpatient. (2) Palliative care encounter: Admission and Anticipated Discharge Date Admission Date: April 03, 2020 Subjective Having a difficult day emotionally today. She reports feeling like the last three months are finally catching up with her. She has had some loose stool and decreased appetite today. Review of Systems Review of Systems: [place] Symptom Assessment Scale Pain 1/3 Dyspnea 1/3 Nausea 0/3 Constipation 0/3 Anorexia 1/3 Anxiety 1/3 Drowsiness 0/3 Palliative Performance Score 50% Physical Exam Constitutional: no acute distress Respiratory: normal respiratory effort; no labored breathing Psychiatric: Orientation: alert and oriented x 3 Affect: + tearful affect Mood: + anxious mood Results & Data ([facility]) Vital Signs (Past 12 Hours) Vital Signs Temp Pulse Pulse Resp BP Pulse Ox 04/09/20 12:01 98.1 F 69 18 115/66 95 04/09/20 08:11 98.2 F 79 18 108/64 98 04/09/20 06:56 79 04/09/20 03:42 98.1 F 93 H 20 95/63 L 92 PG Care Time/CCT Total # of Minutes Spent Total Time Spent with Patient: Total time spent is greater than 50% in coordination of care (as documented) at patient's floor/unit and/or counseling patient: total time spent 30 minutes with more than 50% of time spent on discussing symptom management and support. Coding Level of Care Code 90514 Subseq Hosp Care Lvl 2 Diagnoses Chest pain R07.9 Chest pain type: unspecified Palliative care encounter Z51.5 (1) Chest pain Chest pain type: unspecified Qualified Code(s): R07.9 - Chest pain, unspecified
[2020-04-09] MEDS ORDERED: MoRPHine SULFATE IR 15 MG TAB (IMMEDIATE RELEASE) PO PRN ×2 (14:37→14:39)
--- NOTE | 2020-04-09 15:11 | Hospitalist Progress Note ---
Date of Service April 09, 2020 Assessment & Plan (1) Pulmonary embolism: Patient is a 54 year old female with PMHx Metastatic breast cancer, Chiari malformation type I, Factor V Leiden deficiency, Hyperlipidemia, Antiphospholipid Ab that presents with chest pain and dyspnea on exertion which started the night of 04/02/20. Small Right Lower Segmental Pulmonary Embolism: - lateral basilar segment of the RLL dx on CT. Venous dopplers negative for DVT or thrombus. - high risk for thrombus formation given Antiphosphlipid Ab syndrome, Factor V leiden deficiency, active metastatic cancer - was on 5 mg Warfarin at home. Transitioned to therapeutic lovenox 1mg/kg BID. Port infection: - Erythema and pain noted by patient on admission around port site, fevers at home - On admission: WBC 18k, procal 0.16, Febrile to 39.2C in ER, CRP on 16.7. Started on Zosyn and Vancomycin. - [facility] consult: recommended at least 2 weeks IV Vancomycin, removal of port. TTE +/- KARINA if BCx have growth. - Port removed on 04/07/20. Zosyn transitioned to Cefepime and discontinued on day 6 of tx. - BCx from 11 AM 04/03 and 10 AM 04/06 negative to date. - Abx initiated on evening of 04/03. Unable to place PICC for Vanc access. US guided IV placed; patient will transition to Daptomycin tomorrow morning for outpatient IV transfusions until 04/17 to complete 2 weeks of MRSA treatment. Hx Cdiff - pt reports having Cdiff infections everytime she is on a non-vanc antibiotic - initiated on PO 125 mg Vanc during hospital course for Cdiff prophylaxis. Will need to continue until 2 days after Daptomycin completed (04/19). - unable to identify any positive Cdiff tests or diagnoses in chart. Patient spends much of her time at [place], [place] -- possible that records are in that system. LANCE: - Today with creatinine 1.44, baseline 0.8-1.0. - Likely AIN secondary to Vancomycin and Zosyn co-initiation - multiple fluid boluses and PO fluid challenges have led to peripheral fluid build up with no significant change in Cr. - IV Vanc discontinued after today's dose. Systolic Heart Murmur: - Not previously noted in EMR. - TTE performed which showed no obvious valvular abnormalities of vegetations, no ventricular abnormalities. Metastatic Breast Cx: - metastatic triple negative breast cancer on chemotherapy regimen with - L upper lobe known mass with slight in size from 4.1 x 3.1cm to 3.9 x 2.6 cm 3 months prior. - Last chemo 03/26/20 with Neulasta 03/25/20; next chemotherapy delayed till 04/16. - Current pain regiment with Methadone 10mg TID and IV Tylenol 1000mg TID PRN. - Continue home oxycodone 10 mg TID PRN; - Zofran and Compazine PRN nausea. Factor V Deficiency/Antiphospholipid antibody syndrome/ Lupus anticoagulant disorder: - Continue Lovenox as above. GERD: - Continue home Famotidine. - Continue home Pantoprazole. Anxiety: - Continue home Xanax 0.5 mg BID PRN. Hypothyroidism: - Continue home Liothyronine 10mcg daily DVT Ppx: therapeutic lovenox FEN/GI: normal diet, PPI + Famotidine Code Status: DNR/DNI Dispo: home tomorrow after daptomycin dose Admission and Anticipated Discharge Date Admission Date: April 03, 2020 Supervising Physician Co-Signing Physician Notes Resident Physician Supervision Note: I independently interviewed and examined the patient and verified the bernardo history and physical, reviewed labs and image studies, discussed the case with the resident Dr. Gaona and agree with the findings and care plan. Subjective Feeling emotionally fatigued from being in the hospital this morning. Much improved after nursing was able to get approval for her to be at bedside this morning. Otherwise feels well, with exception of feeling bloated. says her skin is "usually hanging" and is now "pulled tight like it's going to burst". also having vague abdominal pressure pain. Denies any chest pain or trouble breathing. Review of Systems Constitutional: + weight gain; no fever and no chills Respiratory: no cough and no dyspnea Cardiovascular: + lightheadedness and + edema; no chest pain Gastrointestinal: + bloating; no nausea, no vomiting, no diarrhea/loose stools and no blood in stools Physical Exam Physical Exam: Constitutional: thin, bald, in good spirits Eyes: EOMI, pupils equal and reactive bilaterally, no scleral icterus Cardiac: RRR, no murmurs, gallops or rubs. Normal S1, S2 Pulm: CTA BL, no wheezes, rhonchi, crackles or rubs, moving air well throughout both lungs. no indications of pulmonary edema. breathing and speaking comforta markell on room air. Chest: Port removal site healing well, no oozing Abd: soft, nontender, nondistended, normal bowel sounds, no rebound or guarding Extremities: 2+ nonpitting edema bilaterally to the knees Results & Data Results & Data ([facility]) Vital Signs (Past 12 Hours) Vital Signs Temp Pulse Pulse Resp BP Pulse Ox 04/09/20 12:01 36.7 C 69 18 115/66 95 04/09/20 08:11 36.8 C 79 18 108/64 98 04/09/20 06:56 79 04/09/20 03:42 36.7 C 93 H 20 95/63 L 92 Laboratory Results WBC 6.84 K/uL (4.8-10.8) 04/09/20 06:49 RBC 2.67 M/uL (4.2-5.4) L 04/09/20 06:49 Hgb 7.7 g/dL (12.0-16.0) L 04/09/20 06:49 Hct 23.7 % (37-47) L 04/09/20 06:49 MCV 88.8 fL (80-100) 04/09/20 06:49 MCH 28.8 pg (25-34) 04/09/20 06:49 MCHC 32.5 g/dL (32-36) 04/09/20 06:49 RDW Std Deviation 49.9 fL (36.4-46.3) H 04/09/20 06:49 RDW Coeff of Millie 16.4 % (11.5-14.5) H 04/09/20 06:49 Plt Count 184 K/uL (130-400) 04/09/20 06:49 MPV 10.8 fL (7.4-10.4) H 04/09/20 06:49 Immature Gran % (Auto) 0.3 % 04/09/20 06:49 Neut % (Auto) 72.1 % 04/09/20 06:49 Lymph % (Auto) 11.5 % 04/09/20 06:49 [place] % (Auto) 12.6 % 04/09/20 06:49 Eos % (Auto) 3.2 % 04/09/20 06:49 Baso % (Auto) 0.3 % 04/09/20 06:49 Neut # (Auto) 4.93 K/uL (1.4-6.5) 04/09/20 06:49 Lymph # (Auto) 0.79 K/uL (1.2-3.4) L 04/09/20 06:49 [place] # (Auto) 0.86 K/uL (0.11-0.59) H 04/09/20 06:49 Eos # (Auto) 0.22 K/uL (0-0.5) 04/09/20 06:49 Baso # (Auto) 0.02 K/uL (0-0.2) 04/09/20 06:49 Immature Gran # (Auto) 0.02 K/uL (0.00-0.02) 04/09/20 06:49 Absolute Nucleated RBC 0.03 K/uL (0-0) H 04/03/20 16:00 Nucleated RBC % (auto) 0.2 % 04/03/20 16:00 Hypogranular Neuts 1+ 04/04/20 06:20 Toxic Granulation 1+ 04/05/20 10:13 RBC Morphology Unremarkable 04/09/20 06:49 ESR 53 mm/hr (0-21) H 04/05/20 10:20 PT 14.0 Seconds (9.0-12.0) H 04/07/20 04:07 INR 1.3 (0.9-1.1) H 04/07/20 04:07 APTT 34.5 Seconds (21.0-31.0) H 04/03/20 16:00 PTT Ratio 1.2 04/03/20 16:00 Sodium 143 mmol/L (136-145) 04/09/20 06:49 Potassium 3.9 mmol/L (3.5-5.1) 04/09/20 06:49 Chloride 109 mmol/L (98-107) H 04/09/20 06:49 Carbon Dioxide 28 mmol/L (21-32) 04/09/20 06:49 Anion Gap 6.0 (3-11) 04/09/20 06:49 BUN 18 mg/dl (7-18) 04/09/20 06:49 Creatinine 1.44 mg/dl (0.6-1.2) H 04/09/20 06:49 Est Cr Clr Drug Dosing 40.2 ml/min 04/09/20 06:49 Est GFR ( Amer) 47.3 04/09/20 06:49 Est GFR (Non-Af Amer) 40.8 04/09/20 06:49 BUN/Creatinine Ratio 12.2 (10-20) 04/09/20 06:49 Glucose 98 mg/dl (70-99) 04/09/20 06:49 Calcium 8.7 mg/dl (8.5-10.1) 04/09/20 06:49 Phosphorus 3.7 mg/dl (2.5-4.9) 04/09/20 06:49 Magnesium 2.3 mg/dl (1.8-2.4) 04/09/20 06:49 Total Bilirubin 0.6 mg/dl (0.2-1) 04/05/20 10:13 AST 37 U/L (15-37) 04/05/20 10:13 ALT 41 U/L (12-78) 04/05/20 10:13 Alkaline Phosphatase 142 U/L (45-117) H 04/05/20 10:13 Troponin I < 0.015 ng/ml (0-0.045) 04/03/20 16:00 C-Reactive Protein 16.70 mg/dl (0-0.29) H 04/05/20 10:13 Total Protein 6.2 gm/dl (6.4-8.2) L 04/05/20 10:13 Albumin 2.4 gm/dl (3.4-5.0) L 04/05/20 10:13 Globulin 3.8 gm/dl (2.5-4.0) 04/05/20 10:13 Albumin/Globulin Ratio 0.6 (0.9-2) L 04/05/20 10:13 Procalcitonin 0.49 ng/ml (0-0.5) 04/06/20 06:27 Vancomycin Trough 18.9 mcg/ml (See Comment) 04/05/20 07:35 Random Vancomycin 14.7 mcg/ml 04/08/20 08:13 COVID-19 Eval Order Covid19 [facility] 04/06/20 Unknown SARS-CoV-2, RNA, NAAT NEGATIVE (NEGATIVE) 04/06/20 Unknown SARS-CoV-2 Ag (Rapid) Negative (Negative) 04/03/20 Unknown Resident Activity Tracking Resident Involvement: Resident Care Provided Care Provided: Adult Hospital Medicine (1) Pulmonary embolism Acute cor pulmonale presence: unspecified Chronicity: acute Pulmonary embolism type: unspecified Qualified Code(s): I26.99 - Other pulmonary embolism without acute cor pulmonale
[2020-04-09] MEDS: GABAPENTIN 300 MG CAP PO SCH (20:58)
[2020-04-09] MEDS: PROCHLORPERAZINE MALEATE 10 MG TAB PO PRN (21:39)
[2020-04-10] MEDS: ONDANSETRON INJ 2 MG/ML 2 ML VIAL IV PRN (04:19)
[2020-04-10] MEDS ORDERED: DAPTOmycin 300 MG in SYRINGE 0 ML IV ONE (07:00)
[2020-04-10 07:18] LABS: Basophils # (auto) 0.02 K/uL (0-0.2); Basophils % (auto) 0.3 %; Eosinophils # (auto) 0.25 K/uL (0-0.5); Eosinophils % (auto) 3.8 %; Hematocrit (blood only) 23.9 % (37-47); Hemoglobin 7.8 g/dL (12.0-16.0); Immature Granulocytes # (auto) 0.01 K/uL (0.00-0.02); Immature Granulocytes % (auto) 0.2 %; Lymphocytes # (auto) 0.69 K/uL (1.2-3.4); Lymphocytes % (auto) 10.4 %; Mean Corpuscular Hemoglobin 29.2 pg (25-34); Mean Corpuscular Hgb Conc 32.6 g/dL (32-36); Mean Corpuscular Volume 89.5 fL (80-100); Mean Platelet Volume 10.6 fL (7.4-10.4); Monocytes # (auto) 0.81 K/uL (0.11-0.59); Monocytes % (auto) 12.2 %; Neutrophils # (auto) 4.86 K/uL (1.4-6.5); Neutrophils % (auto) 73.1 %; Platelet Count 234 K/uL (130-400); RDW Coefficient of Variation 16.8 % (11.5-14.5); RDW Standard Deviation 50.9 fL (36.4-46.3); Red Blood Count 2.67 M/uL (4.2-5.4); White Blood Count 6.64 K/uL (4.8-10.8)
[2020-04-10 07:42] LABS: RBC Morphology Unremarkable
[2020-04-10 07:54] LABS: BUN Creatinine Ratio 11.6 (10-20); Calcium 8.6 mg/dl (8.5-10.1); Creatinine Clr Calc Pharmacy 46.7 ml/min; Est GFR (African American) 57.2; Est GFR (Non-African American) 49.3; Potassium 3.8 mmol/L (3.5-5.1)
[2020-04-10] MEDS: LIDOCAINE 4% CREAM 15 GM TUBE EXT SCH ×2 (08:51→14:03)
[2020-04-10] MEDS: ENOXAPARIN INJ 60 MG/0.6 ML SYR SQ SCH (08:53)
[2020-04-10] MEDS: ADVANCED PROBIOTIC 1250 MG CAPSULE PO SCH (08:53)
[2020-04-10] MEDS: PANTOprazole 40 MG TAB PO SCH (08:53)
[2020-04-10] MEDS: FAMOTIDINE 20 MG TAB PO SCH (08:53)
[2020-04-10] MEDS: LIOTHYRONINE SODIUM 5 MCG TAB PO SCH (08:53)
[2020-04-10] MEDS: RASPBERRY SYRUP 5 ML UDP PO SCH (08:53)
[2020-04-10] MEDS: METHADONE HCL 5 MG TAB PO SCH ×2 (08:58→14:03)
[2020-04-10] MEDS: METHADONE HCL 10 MG TAB PO SCH ×2 (08:58→14:03)
[2020-04-10] MEDS: VANCOMYCIN HCL 125 MG/2.5ML SOLN PO SCH (08:59)
--- NOTE | 2020-04-10 10:40 | Discharge Summary ---
Date of Service April 10, 2020 Admission HPI Per Admitting Provider Patient is a 54 year old female with PMHx Metastatic breast cancer, Chiari malformation type I, Factor V Leiden deficiency, Hyperlipidemia, that presents with history of 1 day duration of chest pain which started the night of 04/02/20. Patient notes that she was laying in bed at home the night prior whenever she started having 10/10 sharp chest pain that primarily occurred with deep inspiration. She also noted of having fevers of 100.6F which would not resolve with Tylenol use. She had presented to the cancer center for her concerns and it was felt that her fever may be secondary to her recent chemotherapy treatment (8 days ago) and Neulasta treatment (7 days ago). They were concerned though of patients sudden onset of pleuritic like chest pain, however, and she was sent for CT scan which revealed a pulmonary embolus in her lateral basilar segment of the right lower lobe. Of note, patient also states that for the past 1 day she has noted worsening discomfort with her R sided port (placed 01/17-) and that the port itself had been erythematous at one point. She also notes a small scabbed lesion cephalad to the port noting that it had appeared secondary to a "hair stabbing me." She states that she has not missed any of her Warfarin doses and that she has been primarily aiming to keep her INR between 1.5-2.0. She has been taking Warfarin 5mg daily. Currently patient notes that her primary issue is regarding her L sided stabbing chest pain that she notes is a 5/10 underlying her L breast when she takes a deep breath. She states that the breast itself "always appear red and tender," though not more-so today than other days. She does state that the nipple is typically more of a yellow coloration, however, the past day has become more red. Med Hx: Metastatic breast Cx, Factor V Leiden deficiency, Lupus anticoagulant disorder, antiphospholipid antibody syndrome, HLD, hypothyroidism Fam Hx: Mother Breast cx, Grandmother Breast cx Social: History smoking 1/2-1PPD quit Dec 26, 2019, 1-2 alcoholic beverages yearly, no illicit drug use. Admission Exam Per Admitting Provider Constitutional: well developed, well nourished and cooperative; no acute distress and not in distress Eyes: PERRL, conjunctivae normal, anicteric sclerae Respiratory: normal respiratory effort and able to speak in complete sentences; no respiratory distress, no labored breathing, no cough and not tachypneic Auscultation: lungs clear to auscultation bilaterally and + diminished lung sounds; no crackles, no rales and no rhonchi Cardiovascular: Rate/Rhythm: regular rate and regular rhythm Heart Sounds: normal S1 and normal S2 Vessels: no JVD Extremities: no calf tenderness Chest (Breasts): Chest: + vascular access device or port (R port ) Additional Comments: -L breast with erythema and dimpling of the underside. -0.5cm scabbed lesion with minimal erythema roughly 3 inches superior to the port Gastrointestinal (Abdomen): Inspection/Auscultation: abdomen normal to inspection and normal bowel sounds; abdomen not distended Percussion/Palpation: abdomen soft; abdomen nontender Musculoskeletal: Head/Neck/Chest: + head abnormal to inspection (prior surgical scar on posterior neck well healed ) and normocephalic Neurologic: PERRL, EOMI, accommodation nl, no face palsy, no dysarthria Psychiatric: A+Ox3, euthymic affect Principal Diagnosis pulmonary embolism, suspected port infection Discharge Exam Constitutional WD/WN, vitals as above Respiratory normal respiratory effort, lungs clear to auscultation Cardiovascular Rate/Rhythm: regular rate and regular rhythm Heart Sounds: + murmur (2/6 systolic murmur) Gastrointestinal (Abdomen) normal bowel sounds, soft, nontender, no hepatosplenomegaly Skin no rashes, warm and dry port removal site on right chest wall without erythema, warmth, purulent drainage Psychiatric A+Ox3, euthymic affect Discharge Data Allergies Allergy/AdvReac Type Severity Reaction Status Date / Time hydrocodone [From Lortab] Allergy Severe Headache Verified 04/03/20 16:37 adhesive Allergy Unknown Rash Verified 04/03/20 16:37 methocarbamol [From Robaxin] Allergy Unknown Unknown Verified 04/03/20 16:37 povidone Allergy Unknown Blisters Verified 04/03/20 16:42 povidone-iodine Allergy Unknown Blisters Verified 04/03/20 16:42 [From Betadine] propoxyphene [From Darvon] Allergy Unknown Headache Verified 04/03/20 16:37 soap [From Betadine] Allergy Unknown Blisters Verified 04/03/20 16:42 codeine AdvReac Intermediate Severe Verified 04/03/20 16:37 headache, nausea Consultations 04/03/20 16:14 ED Decision to Admit Stat 04/03/20 22:12 Consult Palliative Care Routine 04/04/20 07:48 Consult Oncology Routine 04/05/20 14:23 Consult Infectious Diseases Routine 04/06/20 14:51 Consult General Surgery Routine 04/08/20 08:33 Consult Health Information Management Routine Procedures Performed Operation Date: 04/07/20 08:00 Actual Procedures p Removal Infection Infusaport Right(Right) - Dylan Guerrero DO, FACS Ordered Studies 04/03/20 15:43 US venous doppler [facility] Stat Hospital Course (1) Pulmonary embolism: Patient is a 54 year old female with PMHx Metastatic breast cancer, Chiari malformation type I, Factor V Leiden deficiency, Hyperlipidemia, Antiphospholip id Ab admitted for subsegmental PE and suspected port infection. Small Right Lower Segmental Pulmonary Embolism: - Lateral basilar segment of the RLL subsegmental PE on CT. Venous dopplers negative for DVT or thrombus. - High risk for thrombus formation given Antiphospholipid Ab syndrome, Factor V Leiden deficiency, active metastatic cancer. - Was on 5 mg Warfarin at home. Transitioned to therapeutic Lovenox 1mg/kg BID. - Will continue Lovenox injections 60mg BID for at least 3 months; patient will discuss length (3 vs. 6 months) with Dr. Martinez. Port infection: - Erythema and pain noted by patient on admission around port site, fevers at home. - On admission: WBC 18k, procal 0.16, Febrile to 39.2C in ER, CRP on 16.7. Started on Zosyn and Vancomycin. - [facility] ID consult: recommended at least 2 weeks IV Vancomycin, removal of port. TTE +/- KARINA if BCx have growth. - Port removed on 04/07/20. Zosyn transitioned to Cefepime and discontinued on day 6 of tx. - BCx from 11 AM 04/03 and 10 AM 04/06 negative to date. - Abx initiated on evening of 04/03. Unable to place PICC for Vanc access, therefore US guided IV placed. - Patient will continue Daptomycin (initiated due to suspected AIN from vanco IV) once daily until 04/17 to complete 2 weeks of MRSA treatment. Hx Cdiff: - Pt reports having C. diff infections several times in [place] while on antibiotics. - Initiated PO 125 mg Vancomycin PO daily during hospital course for C. diff prophylaxis. To continue through completion of antibiotics and to stop on 04/19. LANCE: - Today with creatinine 1.23, baseline 0.8-1.0. This is improved from initial creatinine ~1.53. - Likely AIN secondary to Vancomycin and Zosyn co-initiation; this has continued to improve with discontinuation of Zosyn and vancomycin. - IV vancomycin transitioned to daptomycin. - Recommend BMP in one week to evaluate for continued improvement. Systolic Heart Murmur: - Not previously noted in EMR. - TTE performed which showed no obvious valvular abnormalities of vegetations, no ventricular abnormalities. - Blood cultures drawn on 04/03 and 04/06 negative. Unliekly to be secondary to vegetation. Metastatic Breast Cx: - Metastatic triple negative breast cancer on chemotherapy regimen with . - L upper lobe known mass with slight in size from 4.1 x 3.1cm to 3.9 x 2.6 cm 3 months prior. - Last chemo 03/26/20 with Neulasta 03/25/20; next chemotherapy delayed till 04/16. - Current pain regiment with Methadone 12.5mg TID, morphine 15-22.5mg q4h PRN breakthrough pain. Lidocaine cream to chest wall TID PRN. Gabapentin 300mg TID qHS. She will continue this regimen at home. - Pain medications currently evaluated by Palliative Care, will have appointment with Dr. Peralta on 04/12. Factor V Deficiency/Antiphospholipid antibody syndrome/ Lupus anticoagulant disorder: - Continue Lovenox as above. Will require another form of anticoagulant following d/c of Lovenox. GERD: - Continue home Famotidine. - Continue home Pantoprazole. Anxiety: - Continue home Xanax 0.5 mg BID PRN. Hypothyroidism: - Continue home Liothyronine 10mcg daily. Dispo: home today following Daptomycin dosing Total Time Total Time Spent Total Time Spent (In Minutes): see attending attestation Discharge Plan Discharge Items Patient Disposition: Home - Home Health Services Reason For Visit: PE Discharge Diagnosis: Pulmonary Embolism, Infected Port Condition on Discharge: Good Activity: Resume your previous activity Non-emergency contact: Primary Care Provider and Oncologist Call non-emergency contact if: you have any medication questions, your wound has increased redness, your wound has increased drainage and your wound pain has increased Follow-up/Referrals: Anderson Sevilla MD [Surgeon] - 04/18/20 10:30 am Rodri Martinez DO [Family Provider] - 04/16/20 8:10 am (1-2 weeks following discharge) Akbar Francisco Jr, DO [Primary Care Provider] - 04/17/20 2:30 pm (VIA PHONE APPOINTMENT) Diet: Regular Addtl Attending Provider Instructions: You were evaluated in the hospital for chest pain and shortness of breath found to be due to a small segmental pulmonary embolus that was found on CT imaging of your chest. Because you were on warfarin when this happened and have positive antiphospholipid antibodies, factor V Leiden deficiency and metastatic cancer, you have a higher risk of clot formation. Thus, you were switched to a higher dose Lovenox shots twice a day. You will continue these shots at home, 60 mg Lovenox twice a day. You will take this instead of your warfarin. You will continue this for at least 3 months; talk to your primary care doctor and Dr. Martinez about how long to take this medication. Ultrasound of your legs showed no evidence of clots in your legs as a source of your clot formation. During your stay it was noted that you were having fevers with significant tenderness and redness surrounding your port site. It was determined that the port was most likely the source of infection and the port was removed by general surgery. Though your blood cultures were all negative, you will need to finish a full 2 week course of antibiotics given your fevers. You will finish out your daptomycin IV medication on 04/17 for your suspected port infection (300 milligrams once daily). This will be sent to your home through [employer]. You will take vancomycin orally (125milligrams, 2.5 milliliters) until 04/19 to help prevent C diff infection. This was sent to [facility] on [address] [facility]. Your blood cultures were all negative for infection. Home health will come see you at home to show you how to use your medications and make sure you are set up at home. Your kidneys also had an injury while you were admitted. This is likely due to dehydration or due to the initial antibiotics regimen you started with. Your kidney function continued to improve and your kidney level was 1.25 on discharge (normal is 1.00). Please follow up with your primary care doctor in about 1 week regarding labwork to evaluate for continued improvement. You received fluids due to your kidney function which helped your kidneys but caused some leg swelling. We discussed avoiding the water pill to take off fluid from your legs because of your lower blood pressures. We recommend frequent calf exercises and walking to help your legs "push" the fluid up your bloodstream to be removed naturally. This may take some time but will not have the risk of lightheadedness, dizziness and falls like the pills would. Your home pain medications were changed with the help of Dr. Luly Peralta. You were switched to methadone, 12.5 milligrams every 8 hours on a schedule for your pain. We have also sent for morphine tablets, 15 milligrams each. You can take 1 to 1.5 tablets every 4 hours as needed for breakthrough pain. You can also use Lidocaine cream once every 8 hours for localized pain. This was sent to [facility] Tylenol should be used for fevers. You were also started on gabapentin 300 milligrams at nighttime before bed. This was sent to [facility] You will no longer be on the oxycodone or Percocet medications. Please contact Dr. Peralta's office if your pain is not well controlled on the methadone medication. You have follow up scheduled with her office on . If you have any recurrence of fevers over 100.4 degrees on a thermometer, increase in pain at your port site, or pus coming from the port site area, please seek urgent medical attention. Pending Studies at Discharge: No Stand-Alone Forms: [facility], Sm[facility] C[facility] Medications and DC Order Prescriptions: New gabapentin 300 mg capsule 300 mg PO HS Qty: 30 RF: 0 enoxaparin [Lovenox] 60 mg/0.6 mL syringe 60 mg subcut Q12H 90 Days Qty: 108 RF: 0 daptomycin 350 mg recon soln 300 mg IV DAILY Qty: 10 RF: 0 lidocaine 4 % cream 1 applic topical TID Qty: 30 RF: 0 vancomycin 50 mg/mL recon soln 125 mg PO DAILY 10 Days Qty: 80 RF: 0 methadone 10 mg tablet 12.5 mg PO Q8H 7 Days Qty: 27 RF: 0 morphine 15 mg tablet 15 mg PO Q4H PRN (Reason: pain) Qty: 30 RF: 0 Continued cyclobenzaprine 10 mg tablet 10 mg PO TID PRN (Reason: Muscle Spasm) RF: 0 mxkqjoaqby-ctczlarxygysd-adej [Fioricet] 50-300-40 mg capsule 1 cap PO Q4H PRN (Reason: Migraine Headache) RF: 0 liothyronine [Cytomel] 5 mcg tablet 10 mcg PO QAM RF: 0 simvastatin [Zocor] 40 mg tablet 40 mg PO QPM RF: 0 zolpidem [Ambien CR] 12.5 mg tablet,ext release multiphase 12.5 mg PO DAILY PRN (Reason: Insomnia) RF: 0 ondansetron HCl 8 mg tablet 4 - 8 mg PO Q8H PRN (Reason: Nausea And Vomiting) RF: 0 diclofenac sodium 1 % gel 2 g topical QID PRN (Reason: Pain) RF: 0 alprazolam 0.5 mg tablet 0.5 mg PO BID PRN (Reason: Anxiety) RF: 0 dexamethasone 4 mg tablet 20 mg PO DIRECTED PRN (Reason: Chemo Treatment) RF: 0 famotidine 20 mg tablet 20 mg PO BID RF: 0 pantoprazole 40 mg tablet,delayed release (DR/EC) 40 mg PO BID RF: 0 Advanced Probiotic 625 mg (10 billion cell) capsule 2 cap PO DAILY PRN (Reason: When on Antibiotics) RF: 0 prochlorperazine maleate 10 mg tablet 10 mg PO Q6H PRN (Reason: Nausea And Vomiting) RF: 0 Discontinued oxycodone-acetaminophen [Percocet] 5-325 mg tablet 1 tab PO Q4H PRN (Reason: Pain) RF: 0 methadone [Dolophine] 10 mg tablet 10 mg PO TID RF: 0 warfarin 5 mg tablet 5 mg PO DAILY RF: 0 oxycodone 10 mg tablet 10 mg PO DIRECTED PRN (Reason: Pain) RF: 0 Discharge Orders: Discharge Order (Routine); Ordered 04/10/20 Ordered By: Malini Santoyo/Other Patient Handouts: Inflammatory Breast Cancer, Mind-Body Therapy, Stress Relief: Relaxation, Embolism Pulmonary Dc Admission Data Admit Date/Time: 04/03/20 18:39 Attending Provider: Daria Christie Admit Provider: Jorge L Tidwell Primary Care Provider: Akbar Francisco Jr Other Providers: Fabricio Fernandez ; Bryant Iyer ; Luly Peralta ; Rodri Martinez V. ; Baldev Carter ; Jr Loyola ; Storm Aguilar I. ; Uriel Ramirez II ; Claudette Delgado ; Martín Valdez ; Anderson Sevilla ; Pankaj Taylor ; Vicky Gaona ; [facility] Other Interventions: Discharge Summary Assessment (RN) Last Done: 04/10/20 13:14 Supervising Physician Co-Signing Physician Notes Resident Physician Supervision Note: I independently interviewed and examined the patient and verified the bernardo history and physical, reviewed labs and image studies, discussed the case with the resident Dr. Gautam and agree with the findings and care plan. Resident Activity Tracking Resident Involvement: Resident Care Provided Care Provided: Adult Hospital Medicine
[2020-04-11] MEDS ORDERED: DAPTOmycin 300 MG in SYRINGE 0 ML IV SCH (09:00)
== END 2020-04-10 14:11 | disposition home health service (06) | DRG 176 ==
LOC: ED 15:23 → SUATTDRO 18:39 → 2S 18:39